=== PATIENT | female | born 1955 | race Caucasian/White ===

== ENCOUNTER 2022-11-06 15:25 | Outpatient (REF) | payer OTHER, MEDICAID, SELFPAY ==
--- OUTSIDE RECORDS SUMMARY | 2022-11-06 15:30 | XMS_ITS | CCD ---
Author Name Unknown Address [address] [place] [address] [phone] Organization Unknown Address [address] [place] [address] [phone] Care Team Providers Care Information Systems Security Manager Name Role Phone VIKKI PAULSON Attending Physician [phone] VIKKI PAULSONing (Secondary) Physician [phone] Vital Signs Unknown or Not Available. Allergies Allergy Code Allergy Type Reaction Status ASPIRIN 0 Drug allergy Active Procedures Unknown or Not Available. History of Immunizations Unknown or Not Available. Problems Unknown or Not Available. Results Unknown or Not Available. Active Medications Unknown or Not Available. Medications Administered During Visit Unknown or Not Available. Encounters Encounter Diagnosis Diagnosis Code Start Date Idiopathic osteoarthritis [id number] 2020 Social History Smoking Status Code Start Date End Date Never smoker [id number] Patient Decision Aids Unknown or Not Available. Discharge Instructions You were admitted to [facility] on 02/12/2021 14:29 with a principal diagnosis of Unilateral primary osteoarthritis, left knee You were discharged from [facility] on 02/12/2021 00:00 Should you have any questions prior to discharge, please contact a member of your healthcare team. If you have left the hospital and have any questions, please contact your primary care physician. Chief Complaint and Reason For Visit Unknown or Not Available. Function Status Unknown or Not Available. Plan of Care Unknown or Not Available. Referral/Transition of Care Unknown or Not Available.
--- OUTSIDE RECORDS SUMMARY | 2022-11-06 15:30 | XMS_ITS | CCD ---
Author Name Unknown Address [address] [place] [address] [phone] Organization Unknown Address [address] [place] [address] [phone] Care Team Providers Care Fish Cleaner Machine Tender Name Role Phone VIKKI PAULSON Attending Physician [phone] VIKKI PAULSONing (Secondary) Physician [phone] Vital Signs Unknown or Not Available. Allergies Allergy Code Allergy Type Reaction Status ASPIRIN 0 Drug allergy Active Procedures Unknown or Not Available. History of Immunizations Unknown or Not Available. Problems Unknown or Not Available. Results Unknown or Not Available. Active Medications Unknown or Not Available. Medications Administered During Visit Unknown or Not Available. Encounters Encounter Diagnosis Diagnosis Code Start Date Idiopathic osteoarthritis [id number] 2021 Social History Smoking Status Code Start Date End Date Never smoker [id number] Patient Decision Aids Unknown or Not Available. Discharge Instructions You were admitted to [facility] on 03/26/2021 15:04 with a principal diagnosis of Unilateral primary osteoarthritis, left knee You were discharged from [facility] on 03/26/2021 00:00 Should you have any questions prior [...]
--- OUTSIDE RECORDS SUMMARY | 2022-11-06 15:30 | XMS_ITS | CCD ---
Author Name Unknown Address [address] [place] [address] [phone] Organization Unknown Address [address] [place] [address] [phone] Care Team Providers Care Mender Hand Name Role Phone MADI HARP Attending Physician [phone] MADI HARP Rounding (Secondary) Physician [phone] Vital Signs Unknown or Not Available. Allergies Allergy Code Allergy Type Reaction Status ASPIRIN 0 Drug allergy Active Procedures Unknown or Not Available. History of Immunizations Unknown or Not Available. Problems Unknown or Not Available. Results Unknown or Not Available. Active Medications Unknown or Not Available. Medications Administered During Visit Unknown or Not Available. Encounters Encounter Diagnosis Diagnosis Code Start Date Idiopathic osteoarthritis [id number] 2022 Social History Smoking Status Code Start Date End Date Never smoker [id number] Patient Decision Aids Unknown or Not Available. Discharge Instructions You were admitted to [facility] on 09/08/2022 12:45 with a principal diagnosis of Unilateral primary osteoarthritis, left knee You were discharged from [facility] on 09/08/2022 00:00 Should you have any questions prior [...]
[2022-11-06 15:34] LABS: ESR 10 mm/hr (0-30)
[2022-11-06 15:59] LABS: C-Reactive Protein 0.08 mg/dL (0.0-0.3); Creatine Kinase 69 U/L (26-192); LDH 230 U/L (81-234)
[2022-11-06 22:12] LABS: Rheumatoid Factor <8.6 IU/mL (<12.0)
[2022-11-09 08:30] LABS: Cyclic Citrullinated Peptide <2.5 U/mL (<5.0)
[2022-11-09 10:57] LABS: Myeloperoxidase Ab IgG <0.2 U; Proteinase 3 Ab (PR3) <0.2 U
[2022-11-09 14:28] LABS: ANA Interpretation Positive (Negative); ANA Titer Pattern 1:320 Homogeneous
== END 2022-11-06 15:26 | disposition home or self-care (01) ==
LOC: LBN 15:25
PROVIDERS: Visit Provider Student in an Organized Health Care Education/Training Program
DX: R50.9 Fever, unspecified (principal)
CPT/HCPCS: 82550; 85652; 86200; 83516; 83615; 86038; 86140; 86431

== ENCOUNTER → 2023-05-13 12:59 | Outpatient (BNVA) | payer OTHER, MEDICAID, SELFPAY | PROVIDERS: Visit Provider Physician Assistant Surgical | DX: R05.3 Chronic cough (principal); J45.909 Unspecified asthma, uncomplicated; G47.33 Obstructive sleep apnea (adult) (pediatric); R50.9 Fever, unspecified | CPT/HCPCS: 99214 ==

== ENCOUNTER → 2023-12-08 13:00 | Outpatient (BNVA) | payer OTHER, MEDICAID, SELFPAY | PROVIDERS: PCP Family Medicine; Referring Provider Family Medicine; Visit Provider Physician Assistant Surgical | DX: J45.909 Unspecified asthma, uncomplicated (principal); R50.9 Fever, unspecified; R05.3 Chronic cough; K44.9 Diaphragmatic hernia without obstruction or gangrene; K21.9 Gastro-esophageal reflux disease without esophagitis; G47.33 Obstructive sleep apnea (adult) (pediatric) | CPT/HCPCS: 99214 ==

== ENCOUNTER 2023-12-08 20:41 | Outpatient (REF) | payer OTHER, MEDICAID, SELFPAY ==
[2023-12-08 20:36] LABS: COVID-19 PCR Negative (Negative); Influenza A PCR Negative (Negative); Influenza B PCR Negative (Negative); RSV PCR Negative (Negative)
--- OUTSIDE RECORDS SUMMARY | 2023-12-08 20:43 | XMS_ITS ---
Author Organization Unknown Address [address] [place] [address] [phone] Phone Care Team Providers Care Manufacturing Technology Professor Name Role Phone LORENE FLOREZ Attending Unavailable LONNIE Carlos Primary Unavailable Social History Type Status Start Date End Date Code Code Syst em Smoking History Never smoker (Never Smoked) 715530794 SNOMED CT Sex Female Hospital Discharge Instructions Should you have any questions prior to discharge, please contact a member of your healthcare team. If you have left the hospital and have any questions, please contact your primary care physician. Reason For Referral No Data Found Allergies and Adverse Reactions Allergy Substance Reaction Severity Start Date Concern Status Co de Code System ASPIRIN Moderate Active Plan of Treatment No Data Found Encounters Encounter Diagnosis Start Date Code Code Sys tem Idiopathic osteoarthritis 03/26/2021 505724231 SN OMED-CT Personal Care Team Section Performer Name Performer Role Active Date Inactive Da adriel
--- OUTSIDE RECORDS SUMMARY | 2023-12-08 20:43 | XMS_ITS ---
Author Organization Unknown Address [address] [place] [address] [phone] Phone Care Team Providers Care Track Grinder Operator Name Role Phone LORENE FLOREZ Attending Unavailable LONNIE Carlos Primary Unavailable Social History Type Status Start Date End Date Code Code Syst em Smoking History Never smoker (Never Smoked) 389224375 SNOMED CT Sex Female Hospital Discharge Instructions [...] Date Code Code Sys tem Idiopathic osteoarthritis 02/12/2021 484247274 SN OMED-CT Personal Care Team Section Performer Name Performer Role Active Date Inactive Da adriel
--- OUTSIDE RECORDS SUMMARY | 2023-12-08 20:43 | XMS_ITS ---
Author Organization Unknown Address [address] [place] [address] [phone] Phone Care Team Providers Care Manager People Name Role Phone LORENE FLOREZ Attending Unavailable LONNIE Carlos Primary Unavailable Results XR KNEE LT MIN 4V* - Complet ed: 03/20/2021 12:57 LOINC: LEFT KNEE: Comparison is made with August 02. There is moderate narrowing of the medial femoral tibial joint as well as lateral patellofemoral joint. There is mild periarticular spurring. No joint effusion is visible. IMPRESSION:Moderate degenerative changes. Dictated by: CEO SHARON LONG MD Transcribed by: SOL 03/21/2107:14 D , March 20, 2021 3:50:47 PM [id number] Electronically Reviewed and Signed By: SHARON LONG MD 03/21/21 08:38 Copy for: [facility] Social History Type Status Start Date End Date Code Code Syst em Smoking History Never smoker (Never Smoked) 213799496 SNOMED CT Sex Female Hospital Discharge Instructions [...] Date Code Code Sys tem Idiopathic osteoarthritis 03/20/2021 111627712 SN OMED-CT Personal Care Team Section Performer Name Performer Role Active Date Inactive Da te
--- OUTSIDE RECORDS SUMMARY | 2023-12-08 20:44 | XMS_ITS ---
Author Organization Unknown Address [address] [place] [address] [phone] Phone Care Team Providers Care Assisted Living Housekeeper Name Role Phone LORENE FLOREZ Attending Unavailable PCP NOT SELECTED Primary Unavailable Results XR KNEE 4V LT* - Completed: 03/25/2022 13:00 LOINC: RADIOLOGY [place], [place] [address] PACS TRUSS PULLER HELPER REPORT Patient Name: AASHISH PASTRANA I MRN: Sex: : Age: [id number] F 1955 66 Account: Accession: Admit: StayType: [id number] 03/25/2022 CLINIC Ordered: Order ID: Submitted: Ordering Provider: 03/25/2022 11:53 [id number] BM VIKKI PAULSON Completed: Technologist: Resulted: 03/25/2022 11:53 03/25/2022 12:54 Study Description: XR KNEE 4V LT* Study Reason: LT KNEE PAIN Technique: 2D digital imaging was performed. 4 images were obtained. COMPARISON: Comparison examination is 03/20/2021. FINDINGS: Bones: No acute fractures present. No bony destructive lesion is seen. Joints: No dislocation is present. There is mild narrowing and periarticular spurring in the medial femoral-tibial joint. The articular surfaces are otherwise well-maintained. No joint effusion is present. Soft tissues: Unremarkable. IMPRESSION: Stable degenerative changes of the left knee. Report Digitally Signed by Александр Easton on 03/25/2022 12:54 PM EST Social History Type Status Start Date End Date Code Code Syst em Smoking History Never smoker (Never Smoked) 394912028 SNOMED CT Sex Female Hospital Discharge Instructions [...] Date Code Code Sys tem Idiopathic osteoarthritis 03/25/2022 398975604 SN OMED-CT Personal Care Team Section Performer Name Performer Role Active Date Inactive Da te
--- OUTSIDE RECORDS SUMMARY | 2023-12-08 20:44 | XMS_ITS ---
Author Organization Unknown Address [address] [place] [address] [phone] Phone Care Team Providers Care Refrigerator Car Icer Name Role Phone KATIUSKA Davies Attending Unavailable PCP NOT SELECTED Primary Unavailable Social History Type Status Start Date End Date Code Code Syst em Smoking History Never smoker (Never Smoked) 220583908 SNOMED CT Sex Female Hospital Discharge Instructions [...] Date Code Code Sys tem Idiopathic osteoarthritis 10/01/2022 951492106 SN OMED-CT Personal Care Team Section Performer Name Performer Role Active Date Inactive Da te
--- OUTSIDE RECORDS SUMMARY | 2023-12-08 20:44 | XMS_ITS ---
Author Organization Unknown Address [address] [place] [address] [phone] Phone Care Team Providers Care Drawing Supervisor Name Role Phone KATIUSKA Davies Attending Unavailable PCP NOT SELECTED Primary Unavailable Social History Type Status Start Date End Date Code Code Syst em Smoking History Never smoker (Never Smoked) 508896915 SNOMED CT Sex Female Hospital Discharge Instructions [...] Date Code Code Sys tem Idiopathic osteoarthritis 09/08/2022 882889246 SN OMED-CT Personal Care Team Section Performer Name Performer Role Active Date Inactive Da te
--- OUTSIDE RECORDS SUMMARY | 2023-12-08 20:44 | XMS_ITS ---
Author Organization Unknown Address [address] [place] [address] [phone] Phone Care Team Providers Care Sheet Pile Driver Operator Name Role Phone HEATHER HUTCHINSON Attending Unavailable PCP NOT SELECTED Primary Unavailable Social History Type Status Start Date End Date Code Code Syst em Smoking History Never smoker (Never Smoked) 805944438 SNOMED CT Sex Female Hospital Discharge Instructions [...] Date Code Code Sys tem Idiopathic osteoarthritis 06/04/2022 341333902 SN OMED-CT Personal Care Team Section Performer Name Performer Role Active Date Inactive Da adriel
--- OUTSIDE RECORDS SUMMARY | 2023-12-08 20:45 | XMS_ITS ---
Author Organization Unknown Address [address] [place] [address] [phone] Phone Care Team Providers Care Aviation Tactical Readiness Officer Name Role Phone KATIUSKA Davies Attending Unavailable LARA HERNANDEZ Primary Unavailable Results XR KNEE 4V LT* - Completed: 06/23/2023 14:29 LOINC: [facility] [place], [place] [address] PACS CRUDE OIL TREATER REPORT Patient Name: AASHISH PASTRANA I MRN: Sex: : Age: [id number] F 1955 67 Account: Accession: Admit: StayType: [id number] 06/23/2023 CLINIC Ordered: Order ID: Submitted: Ordering Provider: 06/23/2023 11:03 [id number] [facility] MADI HARP Completed: Technologist: Resulted: 06/23/2023 14:29 MLL 06/23/2023 14:56 Study Description: XR KNEE 4V LT Study Reason: LEFT KNEE PAIN Technique: 2D digital imaging was performed. 4 images were obtained. COMPARISON: 25 March 2022 FINDINGS: Bones: No acute fractures present. No bony destructive lesion is seen. Joints: Stable mild narrowing and periarticular spurring at the medial femoral-tibial joint. Mild spurring at the articular aspect of the patella. Patellofemoral joint is suboptimally profiled. Nojoint effusion is seen. Soft tissues: Unremarkable. IMPRESSION: Stable degenerative changes. Report Digitally Signed by Negrita Nathan on 06/23/2023 02:56 PM EDT Social History Type Status Start Date End Date Code Code Syst em Smoking History Never smoker (Never Smoked) 271690240 SNOMED CT Sex Female Hospital Discharge Instructions [...] Date Code Code Sys tem Idiopathic osteoarthritis 06/23/2023 [id number] OMED-CT Personal Care Team Section Performer Name Performer Role Active Date Inactive Da te
--- OUTSIDE RECORDS SUMMARY | 2023-12-08 20:45 | XMS_ITS ---
Author Organization Unknown Address [address] [place] [address] [phone] Phone Care Team Providers Care Hand Braille Transcriber Name Role Phone DEV DENTON Attending Unavailable LARA HERNANDEZ Primary Unavailable Results XR SHOULDER 2V OR MORE RT* - Completed: 01/26/2023 09:45 LOINC: [facility] RAD[facility] [place], [place] [address] PACS TEST GRADER REPORT Patient Name: AASHISH PASTRANA I MRN: Sex: : Age: [id number] F 1955 67 Account: Accession: Admit: StayType: [id number] 01/26/2023 CLINIC Ordered: Order ID: Submitted: Ordering Provider: 01/26/2023 09:27 [id number] PW CORRIE MÉNDEZ Completed: Technologist: Resulted: 01/26/2023 09:45 PW 01/26/2023 17:30 Study Description: XR SHOULDER 2V OR MORE RT Study Reason: Pain TECHNIQUE: 2D digital imaging was performed. COMPARISON: No exams were available for comparison FINDINGS: NUMBER OF VIEWS: 4 No evidence of acute fracture or dislocation and there are no abnormal soft tissue calcifications in subacromial space nor significant diminution of the subacromial space. There are no obvious degenerative changes in the glenohumeral joint. Mild degenerative changes in the AC joint. Bone density normal. No osseous lesions. IMPRESSION: Minimal findings. Report Digitally Signed by Yuval Hartley on 01/26/2023 05:30 PM EST Social History Type Status Start Date End Date Code Code Syst em Smoking History Never smoker (Never Smoked) 797794200 SNOMED CT Sex Female Hospital Discharge Instructions [...] Diagnosis Start Date Code Code Sys tem 01/26/2023 [id number] SNOMED-CT Personal Care Team Section Performer Name Performer Role Active Date Inactive Da te
--- OUTSIDE RECORDS SUMMARY | 2023-12-08 20:45 | XMS_ITS | Encounter Summary ---
Author Organization [facility] Address [address] [place] [address] Care Team Providers Care Board Certified Behavioral Analyst Name Role Phone Nadine Sadler VANESA Primary Care Provider + Encounter Details Date Type Department Care Team (Late st Contact Info) Description 11/13/2022 Lab Requisition [facility] Pathology & Laboratory Medicine - [facility] [address] [place] [address] Outr Resulting Lab, Provider Social History Tobacco Use Types Packs/Day Years Used Date Smoking Tobacco: Never Interpersonal Safety Answer Date Record ed Physically Hurt Never 10/15/2019 Verbally Threaten Not on file 10/15/2019 Sex and Gender Information Value Date Recorded Sex Assigned at Not on file Gender Identity Not on file Sexual Orientation Not on file documented as of this encounter Functional Status Functional Status Response Date of Assess ment Are you deaf or do you have serious difficulty h earing? No 04/12/2014 Are you blind or do you have serious difficulty seeing, even when wearing glasses? No 04/12/2014 Do you have serious difficul ty walking or climbing stairs? (5 years old or older) No 04/12/2014 Do you have difficulty dress ing or bathing? (5 years old or older) No 04/12/2014 Because of a physical, menta l, or emotional condition, do you have difficulty doing errands alone such as visiting a doctor's office or shopping? (15 years old or older) No 04/12/2014 Cognitive Status Response Date of Assessm ent Because of a physical, menta l, or emotional condition, do you have serious difficulty concentrating, remembering, or making decisions? (5 years old or older) Yes 04/12/2014 documented as of this encounter Plan of Treatment Not on file documented as of this encounter Procedures Procedure Name Priority Date/Time Associated Diagnosis Comments DOUBLE STRANDED DNA ANTIBODY, IGG Routine 11/13/2022 18:05 EDT documented in this encounter Results * ANTI DNA (DOUBLE STRANDED) (11/13/2022 18:05 EDT) Anti-DNA (Double Stranded) <12.3 <30.0 IU/mL 11/17/2022 14:15 EDT [facility] Comment: ? Negative: ??<30.0 IU/mL ? Borderline Positive: ??30.0 - 75.0 IU/mL ? Positive: ??>75.0 IU/mL Results were obtained with the [employer] Lite dsDNA SC STUART assay on the [employer]. Blood VENOUS BLOOD / Unknown 11/13/2022 18:05 EDT 11/15/2022 16:37 EDT Provider Outr Resulting Lab IMMUNOLOGY A ND SEROLOGY ORDERABLES [facility] [address] [place] [address] documented in this encounter Visit Diagnoses Not on filedocumented in this encounter Care Teams Board Certified Behavioral Analyst Relationship Specialty Start Date End Date Nadine Sadler FNP PCP - General 01/04/14 documented as of this encounter
--- OUTSIDE RECORDS SUMMARY | 2023-12-08 20:45 | XMS_ITS | Referral Summary ---
Author Organization [facility] Address [address] [place] [address] Care Team Providers Care Senior Marketing Coordinator Name Role Phone Nadine Sadler VANESA Primary Care Provider + Allergies Active Allergy Reactions Criticality Noted Date Comments Aspirin Other (See Comments) 02/13/2014 Dizziness and elevated BP per pt Gabapentin Medium 02/13/2014 Burning in hands and feet Topiramate Medium 02/13/2014 Burning in hands and feet Medications Medication Sig Dispensed Refills Start Date End Date Status OXYCODONE HCL (OXYCODONE ORAL) Take 10 mg by mouth 4 times daily as needed . Active atenolol (TENORMIN) 50 mg tablet Take 50 mg by mouth daily. Active clonazePAM (KLONOPIN) 1 mg tablet Take 1 mg by mouth 3 times daily. Active lamoTRIgine (LAMICTAL) 25 mg tablet Take 50 mg by mouth 2 times daily. Active albuterol 90 mcg/actuation inhalerIndications:a cute asthma attack,chronic obstructive pulmonary disease Inhale 2 Puffs as directed every 4 hours Indications: ACUTE ASTHMA ATTACK, CHRONIC OBSTRUCTIVE PULMONARY DISEASE. Active fluticasone-salmeter ol (ADVAIR) 500-50 mcg/dose diskus inhalerIndications:b ronchospasm prevention with COPD Inhale 1 Puff as directed 2 times daily Indications: BRONCHOSPASM PREVENTION WITH COPD. Active ibuprofen (MOTRIN) 200 mg tabletIndications:os teoarthritis Take 600 mg by mouth every 6 hours as needed for Pain Indications: OSTEOARTHRITIS. Active zolpidem (AMBIEN) 10 mg tablet Take 10 mg by mouth daily. Active sumatriptan (IMITREX) 6 mg/0.5 mL injection Inject 6 mg into the skin. Active promethazine (PHENERGAN) 25 mg tablet Take 25 mg by mouth every 6 hours as needed for Nausea. Active oxyCODONE (ROXICODONE) 5 mg immediate release tablet Take 1-2 Tabs by mouth every 4 hours as needed for Pain. Earliest Fill Date: 04/14/14 80 Tab 0 04/14/2014 Active traMADol (ULTRAM) 50 mg tablet Take 1-2 Tabs by mouth every 6 hours as needed for Pain. 50 Tab 0 04/14/2014 Active amoxicillin (AMOXIL) 500 mg capsule Take 4 capsules by mouth,one hour prior to all dental procedures 4 Cap 5 07/12/2014 Active Active Problems Problem Noted Date Diagnosed Date S/P total knee arthroplasty 05/08/2014 Osteoarthritis, lower leg, localized 04/11/2014 Overview: ICD10 Update Auto Replacement Pain in joint, lower leg 04/11/2014 Osteoarthritis of right knee 02/13/2014 Asthma COPD (chronic obstructive pulmonary disease) ( C-CMS) Bipolar disorder ([facility]) CHF (congestive heart failure) ([facility]) HTN (hypertension) Obstructive sleep apnea Overview: unable to tolerate cpap mouth piece Fatty liver disease, nonalcoholic Edema of lower extremity Social History Tobacco Use Types Packs/Day Years Used Date Smoking Tobacco: Never Interpersonal Safety Answer Date Record ed Physically Hurt Never 10/15/2019 Verbally Threaten Not on file 10/15/2019 Sex and Gender Information Value Date Recorded Sex Assigned at Not on file Gender Identity Not on file Sexual Orientation Not on file Last Filed Vital Signs Vital Sign Reading Time Taken Comments Blood Pressure 123/65 04/14/2014 0925 EST Pulse 67 04/14/2014 0925 EST Temperature 36.5 ??C (97.7 ??F) 04/14/2014 0705 EST Respiratory Rate 16 04/14/2014 0705 EST Oxygen Saturation 98% 04/14/2014 0705 EST Inhaled Oxygen Concentration - - Weight 77.1 kg (170 lb) 04/12/2014 0300 EST Height 149.9 cm (4' 11.02) 04/12/2014 0300 EST Body Mass Index 34.32 04/12/2014 0300 EST Functional Status Functional Status Response Date of [...] (5 years old or older) Yes 04/12/2014 Plan of Treatment Not on file Advance Directives For more information, please contact: [phone] * Full Code (Latest Code Status on File) Date Activated Date Inactivated Comments 04/11/2014 21:54 04/14/2014 15:32 Question Answer Comments Reason for decision includes: Full code requested by fully informed patient Who participated in the discussion? Patient Care Teams Senior Marketing Coordinator Relationship Specialty Start Date End Date Nadine Sadler FNP PCP - General 01/04/14
--- OUTSIDE RECORDS SUMMARY | 2023-12-08 20:45 | XMS_ITS | Clinical Summary ---
Author Organization [facility] Address [address] [place] [address] Care Team Providers Care Split And Drum Room Supervisor Name Role Phone Nadine Sadler VANESA Primary [...] obstructive pulmonary disease) ( C-CMS) Bipolar disorder (HCC-CMS) CHF (congestive heart failure) ([facility]) HTN (hypertension) Obstructive sleep apnea Overview: unable to tolerate cpap mouth piece Fatty liver disease, nonalcoholic Edema of lower extremity Medical History Medical History Date Comments Asthma COPD (chronic obstructive pu lmonary disease) (HCC-CMS) Bipolar disorder ([facility]) HTN (hypertension) CHF (congestive heart failure) ([facility]) Obstructive sleep apnea unable t o tolerate cpap mouth piece Fatty liver disease, nonalcoholic Edema of lower extremity Social History Tobacco Use Types Packs/Day Years Used Date Smoking Tobacco: Never Interpersonal Safety Answer Date Record ed Physically Hurt Never 10/15/2019 Verbally Threaten Not on file 10/15/2019 Sex and Gender Information Value Date Recorded Sex Assigned at Not on file Gender Identity Not on file Sexual Orientation Not on file Obstetrics History Last Filed Vital Signs Vital Sign Reading [...] Body Mass Index 34.32 04/12/2014 0300 EST Plan of Treatment Health Maintenance Due Date Last Done Comments Asthma Action Plan 1955 Copd Action Plan 1955 Hepatitis C Screen 1955 Lung Function Test (Spirometry) 1955 RSV Immunization ( o r 60+ Years) (1 - 1-dose 60+ series) 2014 Fall Risk Screening 09/25/2019 COVID-19 Vaccine (2022-24 season) 2022 Advance Directives For more information, please contact: [phone] * Full Code (Latest Code Status on File) Date Activated Date Inactivated Comments 04/11/2014 21:54 04/14/2014 15:32 Question Answer Comments Reason for decision includes: Full code requested by fully informed patient Who participated in the discussion? Patient Care Teams Split And Drum Room Supervisor Relationship Specialty Start Date End Date Nadine Sadler FNP PCP - General 01/04/14
--- OUTSIDE RECORDS SUMMARY | 2023-12-08 20:45 | XMS_ITS ---
Author Organization Unknown Address [address] [place] [address] [phone] Phone Care Team Providers Care Public Health Technologist Name Role Phone DEV CORRIE Attending Unavailable LARA HERNANDEZ Primary Unavailable Social History Type Status Start Date End Date Code Code Syst em Smoking History Never smoker (Never Smoked) 383459119 SNOMED CT Sex Female Hospital Discharge Instructions [...] Diagnosis Start Date Code Code Sys tem 05/11/2023 [id number] SNOMED-CT Personal Care Team Section Performer Name Performer Role Active Date Inactive Da adriel
--- OUTSIDE RECORDS SUMMARY | 2023-12-08 20:45 | XMS_ITS ---
Author Organization Unknown Address [address] [place] [phone] Phone Care Team Providers Care Home Care Provider Name Role Phone JOSE Porter Attending Unavailable LARA HERNANDEZ Primary Unavailable Social History Type Status Start Date End Date Code Code Syst em Smoking History Never smoker (Never Smoked) [id number] SNOMED CT Sex Female Hospital Discharge Instructions [...] Date Code Code Sys tem Idiopathic osteoarthritis 09/23/2023 [id number] SN OMED-CT Personal Care Team Section Performer Name Performer Role Active Date Inactive Da te
--- OUTSIDE RECORDS SUMMARY | 2023-12-08 20:46 | XMS_ITS | Encounter Summary ---
Author Organization [facility] Address [address] [place] [address] Care Team Providers Care Roll Contour Grinder Name Role Phone Nadine Sadler VANESA Primary Care Provider + Encounter Details Date Type Department Care Team (Late st Contact Info) Description 04/04/2014 Phlebotomy Only [facility], [place] [address] [place] [address] Optometrist Owner, Outpatient Localized osteoarthrosis not specified whether primary or secondary, lower leg; Pain in joint, lower leg Social History Tobacco Use Types Packs/Day Years Used Date Smoking Tobacco: Never Assessed Sex and Gender Information Value Date Recorded Sex Assigned at Not on file Gender Identity Not on file Sexual Orientation Not on file documented as of this encounter Plan of Treatment Not on file documented as of this encounter Procedures Procedure Name Priority Date/Time Associated Diagnosis Comments PRE-OP TYPE AND SCREEN Routine 04/04/2014 13:45 EST Localized osteoarthrosis not specified whether primary or secondary, lower leg Pain in joint, lower leg URINALYSIS WITH MICROSCOPIC IF POSITIVE Routine 04/04/2014 13:45 EST Pain in joint, lower leg URINE CULTURE IF POSITIVE Routine 04/04/2014 13:45 EST Localized osteoarthrosis not specified whether primary or secondary, lower leg Pain in joint, lower leg COMPLETE BLOOD COUNT AND DIFFERENTIAL Routine 04/04/2014 13:45 EST Localized osteoarthrosis not specified whether primary or secondary, lower leg Pain in joint, lower leg BASIC METABOLIC PANEL (BMP) Routine 04/04/2014 13:45 EST Localized osteoarthrosis not specified whether primary or secondary, lower leg documented in this encounter Results * URINE CULTURE IF UA POSITIVE - NON POCT URINALYSIS ONLY (04/04/2014 13:45 EST) Culture if Indicated Culture not indicated by urinalysis results. 04/04/2014 16:22 [facility] Urine specimen (specimen) TOPOGRAPHY UNKNOWN / Unknown 04/04/2014 13:45 EST 04/04/2014 15:19 EST Tio Keating MD MSc [facility] MICROBIO LOGY - GENERAL ORDERABLES [facility] [address] [place] [address] * (ABNORMAL) URINALYSIS (04/04/2014 13:45 EST) Color, UA Yellow 04/04/2014 16:11 [facility] Clarity, UA Clear 04/04/2014 16:11 [facility] Glucose, UA Neg Neg 04/04/2014 16:11 [facility] Bilirubin, UA Neg Neg 04/04/2014 16:11 [facility] Ketones, UA Neg Neg 04/04/2014 16:11 [facility] Specific [place], Urine 1.015 1.001 - 1.035 04/04/2014 16:11 [facility] Blood, UA Trace(A) Neg 04/04/2014 16:11 [facility] pH, UA 6.0 4.6 - 8.0 04/04/2014 16:11 [facility] Protein, UA Neg Neg 04/04/2014 16:11 [facility] Urobilinogen, UA 0.2 0.2 - 1.0 E.U./dl 04/04/2014 16:11 [facility] Nitrite, UA Neg Neg 04/04/2014 16:11 [facility] Leuk Esterase Neg Neg 04/04/2014 16:11 [facility] Urine specimen (specimen) URINE / Unknown 04/04/2014 13:45 EST 04/04/2014 15:19 EST Tio Keating MD MSc [facility] URINALYS IS ORDERABLES [facility] [address] [place] [address] * HEMAGRAM AND DIFFERENTIAL (04/04/2014 13:45 EST) WBC 9.43 4.0 - 12.4 K/cmm 04/04/2014 14:32 [facility] RBC 4.19 3.86 - 5.04 M/cmm 04/04/2014 14:32 [facility] Hemoglobin 13.1 11.6 - 15.2 gm/dl 04/04/2014 14:32 [facility] HCT 37.9 34.9 - 44.4 % 04/04/2014 14:32 [facility] MCV 90 81 - 98 fl 04/04/2014 14:32 [facility] MCH 31.2 26.7 - 33.3 pg 04/04/2014 14:32 [facility] MCHC 34.5 32.1 - 35.9 gm/dl 04/04/2014 14:32 [facility] RDW-CV 12.5 11.7 - 14.6 % 04/04/2014 14:32 [facility] RDW-SD 39.4 37.6 - 50.3 fl 04/04/2014 14:32 [facility] PLT 170 141 - 320 K/cmm 04/04/2014 14:32 [facility] MPV 8.0 7.5 - 11.2 fl 04/04/2014 14:32 [facility] % Neutrophils 56.0 45.5 - 79.7 % 04/04/2014 14:32 [facility] % Lymphocytes 34.4 15.0 - 46.8 % 04/04/2014 14:32 [facility] % Monocytes 4.6 1.8 - 12.0 % 04/04/2014 14:32 [facility] % Eosinophils 4.3 0.6 - 6.9 % 04/04/2014 14:32 [facility] % Basophils 0.7 0.2 - 1.4 % 04/04/2014 14:32 [facility] ABS Neutrophils 5.29 2.20 - 8.85 K/cmm 04/04/2014 14:32 [facility] ABS Lymphs 3.24 1.09 - 3.30 K/cmm 04/04/2014 14:32 [facility] ABS Monocytes 0.43 0.1 - 0.8 K/cmm 04/04/2014 14:32 [facility] ABS Eosinophils 0.40 0.03 - 0.61 K/cmm 04/04/2014 14:32 [facility] ABS Basophils 0.07 0.01 - 0.11 K/cmm 04/04/2014 14:32 [facility] Type of Diff: Automated 04/04/2014 14:32 [facility] Blood specimen (specimen) BLOOD SPECIMEN / Unknown 04/04/2014 13:45 EST 04/04/2014 14:14 EST Tio Keating MD MSc [facility] PACKAGES & DNA PROBE ORDERABLES Performing Organization Address City/State/[facility] Co de Phone Number [facility] [address] [place] [address] * (ABNORMAL) BASIC METABOLIC PANEL (04/04/2014 13:45 EST) Sodium 143 136 - 145 mEq/L 04/04/2014 14:56 [facility] Potassium 3.9 3.5 - 5.0 mEq/L 04/04/2014 14:56 [facility] Chloride 104 96 - 110 mEq/L 04/04/2014 14:56 [facility] CO2 27 24 - 32 mEq/L 04/04/2014 14:56 [facility] BUN 9(L) 10 - 26 mg/dl 04/04/2014 14:56 [facility] Creatinine 0.84 0.52 - 1.04 mg/dl 04/04/2014 14:56 [facility] GFR, Calculated >60 >60 ml/min/1.7 3m2 04/04/2014 14:56 [facility] Calcium 9.0 8.5 - 10.5 mg/dl 04/04/2014 14:56 [facility] Calculated Calcium 9.6 8.5 - 10.5 mg/dl 04/04/2014 14:56 [facility] Glucose, Serum 102(H) 70 - 100 mg/dl 04/04/2014 14:56 [facility] Fasting? Unknown 04/04/2014 13:45 [facility] Blood specimen (specimen) BLOOD SPECIMEN / Unknown 04/04/2014 13:45 EST 04/04/2014 14:14 EST Tio Keating MD MSc [facility] CHEMISTR Y & BLOOD GAS ORDERABLES Performing Organization Address City/[facility] Co de Phone Number [facility] [address] [place] [address] * PRE-OP BLOOD BANK DRAW (04/04/2014 13:45 EST) Pre-Op Blood Bank Lab Draw SPECIMEN RECEIVED ACCEPTABLE 04/04/2014 15:22 EST [facility] BLOOD SPECIMEN / Unknown 04/04/2014 13:45 EST 04/04/2014 14:14 EST Tio Keating MD, MSc [facility] BLOOD BA NK TESTS Performing Organization Address City/[facility] Co de Phone Number [facility] [address] [place] [address] documented in this encounter Visit Diagnoses Diagnosis Localized osteoarthrosis not specified whether primary or secondary, lower leg Pain in joint, lower leg documented in this encounter Care Teams Roll Contour Grinder Relationship Specialty Start Date End Date Nadine Sadler FNP PCP - General 01/04/14 documented as of this encounter
--- OUTSIDE RECORDS SUMMARY | 2023-12-08 20:46 | XMS_ITS | Encounter Summary ---
Author Organization [facility] Address [facility] [place] [address] Care Team Providers Care Customer Service Voice Name Role Phone Rhonda Brady Primary Care Provider [phone] Encounter Details Date Type Department Care Team (Late st Contact Info) Description 01/11/2023 Ancillary Procedure Radiology Library at [facility] [place] [phone] Rhonda Brady PA [address] [place], [place] [id number] Social History Tobacco Use Types Packs/Day Years Used Date Smoking Tobacco: Never Smokeless Tobacco: Never Sex and Gender Information Value Date Recorded Sex Assigned at Not on file Gender Identity Not on file Sexual Orientation Not on file documented as of this encounter Plan of Treatment Not on file documented as of this encounter Procedures Procedure Name Priority Date/Time Associated Diagnosis Comments FILM LIBRARY STORAGE ONLY MR SPINE Routine 01/11/2023 12:00 AM EDT documented in this encounter Results * Film Library- Storage Only MR Spine (01/11/2023 12:00 AM EDT) Narrative [facility] - 01/26/2023 8:46 AM EST This exam is auto-finalizing. It's purpose is for storage only. Rhonda LANDRY IMG FILM [facility] ORD [facility] [place] documented in this encounter Visit Diagnoses Not on filedocumented in this encounter Care Teams Customer Service Voice Relationship Specialty Start Date End Date Rhonda Brady PA [address] [place] [address] PCP - General Family Medicine 10/26/22 documented as of this encounter
--- OUTSIDE RECORDS SUMMARY | 2023-12-08 20:46 | XMS_ITS | Encounter Summary ---
Author Organization [facility] Address [address] [place] [address] Care Team Providers Care Pie Bakery Laborer Name Role Phone Nadine Sadler VANESA Primary Care Provider + Encounter Details Date Type Department Care Team (Late st Contact Info) Description 03/31/2021 Lab Requisition [facility] Pathology & Laboratory Medicine - [facility] [address] [place] [address] Outr Resulting Lab, Provider Social History Tobacco [...] Procedure Name Priority Date/Time Associated Diagnosis Comments ZZCOVID-19 TEST [facility] PCR Today 03/31/2021 12:25 EST COVID-19 TESTING Routine 03/31/2021 12:2 5 EST documented in this encounter Results * COVID-19 TEST [facility] PCR (03/31/2021 12:25 EST) Swab 03/31/2021 12:2 5 EST 03/31/2021 20:25 EST Provider Outr Resulting Lab MICROBIOLOGY - GENERAL ORDERABLES [facility] [address] [place] [id number] * COVID-19 TESTING (03/31/2021 12:25 EST) COVID-19 rt-PCR Result Negative Negative 04/01/2021 11:24 EST [facility] Comment: This test has not been FDA cleared or approved. This test has been authorized by FDA under an EUA for use by authorized laboratories. This test has been authorized only for detection of nucleic acid from 2019-nCoV, not for any other viruses or pathogens. This test is only authorized for the duration of the declaration that circumstances exist justifying the authorization of emergency use of in vitro diagnostic tests for detection and/or diagnosis of 2019-nCoV under section 564(b)(1) of Act, 21 U.S.C ?? 360bbb-3(b) (1), unless the authorization is terminated or revoked sooner. Negative results do not preclude 2019-nCoV infection and should not be used as the sole basis for treatment or other patient management decisions. Negative results must be combined with clinical observations, patient history, and epidemiological information. Testing was performed using the yue SARS-CoV-2 assay ([employer] on the Yue 6800 System Performing Lab Yue 6800 [facility] 04/01/2021 11:24 EST [facility] Swab 03/31/2021 12:2 5 EST 03/31/2021 20:25 EST Provider Outr Resulting Lab MICROBIOLOGY - GENERAL ORDERABLES [facility] [address] [place] [address] documented in this encounter Visit Diagnoses Not on filedocumented in this encounter Care Teams Pie Bakery Laborer Relationship Specialty Start Date End Date Nadine Sadler FNP PCP - General 01/04/14 documented as of this encounter
--- OUTSIDE RECORDS SUMMARY | 2023-12-08 20:46 | XMS_ITS | Encounter Summary ---
Author Organization [facility] Address [address] [place] [address] Care Team Providers Care Au Pair Name Role Phone Nadine Sadler VANESA Primary Care Provider + Reason for Visit * Reason Onset Date Comments Leg Pain 05/16/2014 Encounter Details Date Type Department Care Team (Late st Contact Info) Description 05/16/2014 Telephone [facility] Total Joint Program - [address] [place], [place] [phone] Leticia Gandhi RN Leg Pain Social History Tobacco Use Types Packs/Day Years Used Date Smoking Tobacco: Never Sex and Gender Information Value [...] Yes 04/12/2014 documented as of this encounter Miscellaneous Notes * Telephone Encounter - Leticia Gandhi RN - 05/16/2014 1229 EST DOS- 04/11/14 for a Right total knee arthroplasty. called to state that pts right leg is very swollen from knee to foot with increased pain for several days. She woke him up last night due to pain in her calf. Instructed to take pt to ER for evaluation to r/o a DVT in her leg. They will go to [facility] near then and then he will call me and update after visit. Leticia Gandhi RN documented in this encounter Plan of Treatment Not on file documented as of this encounter Visit Diagnoses Not on filedocumented in this encounter Care Teams Au Pair Relationship Specialty Start Date End Date Nadine Sadler FNP PCP - General 01/04/14 documented as of this encounter
--- OUTSIDE RECORDS SUMMARY | 2023-12-08 20:46 | XMS_ITS | Encounter Summary ---
Author Organization [facility] Address [facility] [place] [address] Care Team Providers Care Basic Acoustic Analyst Name Role Phone Rhonda Brady Primary Care Provider [phone] Reason for Referral * Physical Therapy (Routine) - Closed Specialty Diagnoses / Procedures Referred By Contac t Referred To Contact Physical Therapy Diagnoses Lumbar spondylosis Myofascial pain Chronic pain syndrome Sacroiliitis Miguelangel Tinajero MD [facility] [place] [address] Unknown None Referral ID Status Reason Start Date Expiration Date V isits Requested Visits Authorized [id number] Closed Evaluate and Treat Non PCP 03/02/2023 08/29/2023 12 12 Reason for Visit * Reason Comments Back Pain Lower back pain * Consultation (Routine) - Closed Specialty Diagnoses / Procedures Referred By Contac t Referred To Contact [facility] Sp[facility] Center Diagnoses Other intervertebral disc displacement, lumbar region low back pain/ MRI 2019 in eDH/MRI @[facility] (faxed x1)/? pain mgmt options *advise we do not precribe or take over Sahara Kowalski MD [address] [place] [address] [place] [address] [facility] [place] [address] Referral ID Status Reason Start Date Expiration Date V isits Requested Visits Authorized [id number] Closed Consult, Test & Treat PCP Updated and/or Approved 10/26/2022 10/26/2023 1 1 Encounter Details Date Type Department Care Team (Late st Contact Info) Description 03/02/2023 3:45 PM EST Office Visit [facility] [place] [address] Miguelangel Tinajero MD [facility] [place] [address] Myofascial pain (Primary Dx); Lumbar spondylosis; Chronic pain syndrome; Sacroiliitis Social History Tobacco Use Types Packs/Day Years Used Date Smoking Tobacco: Never Smokeless Tobacco: Never Sex and Gender Information Value Date Recorded Sex Assigned at Not on file Gender Identity Not on file Sexual Orientation Not on file documented as of this encounter Last Filed Vital Signs Vital Sign Reading Time Taken Comments Blood Pressure 179/104 03/02/2023 3:12 PM EST Pulse 74 03/02/2023 3:12 PM EST Temperature - - Respiratory Rate - - Oxygen Saturation 99% 03/02/2023 3:12 PM EST Inhaled Oxygen Concentration - - Weight 59 kg (130 lb) 03/02/2023 3:12 PM EST Height 144.8 cm (4' 9) 03/02/2023 3:12 PM EST Body Mass Index 28.13 03/02/2023 3:12 PM EST documented in this encounter Progress Notes * Edgar Medrano, DO - 03/02/2023 3:45 PM EST Images from the original note were not included. [facility] Initial Consultation Note Name: Dominique Gates : 1955 Consulting Physician: Seeing at the request of Sahara Kowalski MD [address] [place] [address] [place] [address] Chief Complaint: low back pain History of Present Illness: Dominique Gates is a 67 y.o. female with a history of Hypertension, COPD,KENA, Bipolar Disorder, AKASH, FOWLER, Chronic Opioid Use who presents with low back pain. Functional Goals of Treatment: decrease pain and increase function Patient endorses chronic low back pain. Onset was about 18-20 years ago without trauma. It is localized to the midline low back. It is always present and described as achy and rated 7/10. It is aggravated by walking (3 city blocks), standing, bending forward. She denies leg weakness or cramps when ambulating. Pain is relieved by sitting. She associates intermittent radiating pain down the posterior thigh and calf. Axial is more bothersome than radicular. Pain has progressively worsened over theyears. Red flag symptoms: Bowel and bladder: No loss of control Saddle anesthesia: Denies Weakness: Denies Pertinent History: h/o Thrombocytopenia/bleeding tendency/platelet dysfunction: No h/o Liver disease/abnormal liver function: Yes, fatty liver h/o Chronic kidney disease (CKD)/abnormal kidney function: No Patient on dialysis: no h/o Diabetes: No Anticoagulation/Aspirin: No Current pain treatments include: Acetaminophen 1500 TID - mild relief Lamictal 25mg TID - for mood stabilizing Methocarbamol 500mg TID - stopped, did not work Oxycodone 10mg QID PRN - stopped due to colitis Conservative Treatment: Topicals: Icy Hot Helpful? No NSAIDS: Ibuprofen Helpful? No Acetaminophen: Yes Helpful? Mild relief Antidepressants: Amitriptyline, Duloxetine Helpful? No Antiepileptics: Gabapentin Helpful? Allergic Muscle Relaxants: Methocarbamol Helpful? Mild relief Opioids: Oxycodone, Tramadol Helpful? Oxycodone worked well but stopped due to colitis Other Medications: NONE Helpful? N/A The patient has not been actively engaged in Physical therapy or a provider directed home exercise program. A home exercise program is not being performed Other Treatment: NONE Helpful? N/A History of Interventional Procedures/Surgery: Prior Surgery: No Injection History (date, procedure, %improvement): No Chart review: Today I have reviewed available medical information in the patient's medical record at [facility] including relevant provider notes, laboratory work, and imaging. Historical Review: I have reviewed the patient's past medical, surgical, social, and family history available in the EMR at this time along with supplemented information provided by the patient during the interview process today. Pertinent findings: Tobacco: Social History Tobacco Use Smoking Status Never Smokeless Tobacco Never Alcohol: Social History Substance and Sexual Activity Alcohol Use None Recreational drug use: No Work: retired Legal issues (WC/MVA, etc): No Housing: Lives with Family Medications and list of allergies: Medications and allergies were reviewed, reconciled and updated in the electronic medical record. ROS: Positive for above mentioned musculoskeletal and neurological findings on 14 point system review. Areas of disrupted skin integrity/wounds/lesions: No Denies any other constitutional symptoms or weight changes. Chronic fever for last 9 months. Physical Exam: Blood pressure (!) 179/104, pulse 74, height 144.8 cm (4' 9), weight 59 kg (130 lb), SpO2 99%. Pain: 7 General: Well-nourished, well-developed, female in no distress Respiratory: Non-labored breathing pattern on RA. No respiratory distress Cardiovascular: No edema or cyanosis. 2+ peripheral pulses Skin: No appreciable rashes or skin breakdown Psych: Appropriate affect, answers questions appropriately Musculoskeletal: Inspection - No gross spinal deformity noted. Palpation - Tender with palpation of the bilateral lumbar paraspinals and right PSIS ROM - Lumbar Flexion , Extension, Lateral rotation is WNL Special tests: - SI Joint provocative testing is Negative bilaterally via Pelvic Distraction, Lateral iliac Compression, and NIKITA - Facet loading in the Lumbar spine is Positive bilaterally - Straight Leg Raise Negative bilaterally - FAIR Negative bilaterally Neurologic: Motor: 5/5 throughout all muscle groups of the lower extremities Reflexes: Segment Reflex Right Left L3-4 Patella 2+ 2+ S1-2 Achilles 2+ 2+ Upper Motor Neuron Signs: Clonus is not present bilaterally (0=absent, 1=slight response, 2=brisk/normal, 3=very brisk, 4=clonus) Sensory - Intact to light touch and pinprick at bilateral lower extremities. Allodynia is not present. Hyperalgesia is not present. Gait/Station - Normal Gait and Is able to heel and toe walk without difficulty Diagnostic Tests: Most recent Lumbar Spine MRI was completed on 01/11/23 at Outside Facility In addition to the formal radiology read, I independently reviewed the imaging and shared my interpretation with the patient. The impression is: Assessment: Dominique Gates is a 67 y.o. female with a PMH including Hypertension, COPD, KENA, Bipolar Disorder, AKASH, FOWLER, Previous Chronic Opioid Use [facility] predominantly chronic axial low back pain. After today's evaluation, presentation is multifactorial including lumbar myofascial and facetogenic. There is an additional contribution from herright SIJ. Patient is amendable to trial of Physical Therapy prior to possible lumbar MBB vs. SIJ injection. 1. Myofascial pain 2. Lumbar spondylosis Plan/Recommendations: We reviewed etiology, predisposing factor(s), natural course, imaging results as well as treatment options including medications, physical therapy/exercise, therapeutic injections, and surgery. The risks, consequences, alternatives, and benefits of various treatment options were discussed with the patient in great detail. We have discussed and recommended the following: - Medications: No new prescription at this time. Patient will continue current medications. - Imaging: No new imaging is indicated at this time. - Physical Therapy/Modalities/DME: Patient would benefit from Physical Therapy and an external referral was provided for the patient. - Interventional/Surgical Procedures: consider lumbar MBB vs SIJ pending response to Physical Therapy - Activity: as tolerated - Education: Cauda equina and associated symptoms, including motor weakness, bowel/bladder dysfunction, and perineal numbness were discussed. The patient was instructed to report to the Emergency department, if these symptoms occur. - Follow-up: as needed, after completion of physical therapy Thank you for allowing us the opportunity to participate in Dominique Gates's care. Edgar Medrano DO Assessment and plan discussed with the attending physician Dr. Tinajero. I have seen and examined the patient and reviewed the fellow's above history and agree with the details as written. The assessment and plan were formulated in discussion with me, and I agree with them as documented. Miguelangel Tinajero MD [facility] Manager Property of Anesthesiology [facility] [employer] [address] [address] / [email or web address] CC: Sahara Kowalski MD [address] [place] [phone] documented in this encounter Plan of Treatment Scheduled Referrals Name Type Priority Associated Diagnoses Orde r Schedule Referral to Physical Therapy Outpatient Referral Routine Lumbar spondylosis Myofascial pain Chronic pain syndrome Sacroiliitis Ordered: 03/02/2023 documented as of this encounter Visit Diagnoses Diagnosis Myofascial pain- Primary Mylagia and myositis, unspecified Lumbar spondylosis Lumbosacral spondylosis without myelopathy Chronic pain syndrome Sacroiliitis Sacroiliitis, not elsewhere classified documented in this encounter Care Teams Basic Acoustic Analyst Relationship Specialty Start Date End Date Rhonda Brady PA [address] [place] [address] PCP - General Family Medicine 10/26/22 documented as of this encounter
--- OUTSIDE RECORDS SUMMARY | 2023-12-08 20:46 | XMS_ITS | Encounter Summary ---
Author [facility] [place] [address] Care Team Providers Care Prosthetic Assistant Name Role Phone Rhonda Brady Primary Care Provider [phone] Encounter Details Date Type Department Care Team (Latest Contact Info) Description 03/02/2023 Travel Social History Tobacco Use Types Packs/Day Years [...] on filedocumented in this encounter Care Teams Prosthetic Assistant Relationship Specialty Start Date End Date Rhonda Brady PA [address] [place] [address] PCP - General Family Medicine 10/26/22 documented as of this encounter
--- OUTSIDE RECORDS SUMMARY | 2023-12-08 20:46 | XMS_ITS | Encounter Summary ---
Author Organization [facility] Address [address] [place] [address] Care Team Providers Care Catia Designer Name Role Phone Nadine Sadler Primary Care Provider + Encounter Details Date Type Department Care Team (Late st Contact Info) Description 01/04/2014 Results Only Imaging [facility] [phone] Unknown, Provider, Social History Tobacco Use Types Packs/Day Years Used Date Smoking Tobacco: Never Assessed Sex and Gender Information Value Date Recorded Sex Assigned at Not on file Gender Identity Not on file Sexual Orientation Not on file documented as of this encounter Plan of Treatment Pending Results Name Type Priority Associated Diagnoses Date /Time OUTSIDE IMAGES - MR MSK Imaging 1 15:11 EDT OUTSIDE IMAGES - PLAIN FILM MSK Imaging 01/04/2014 16:52 EDT documented as of this encounter Visit Diagnoses Not on filedocumented in this encounter Care Teams Catia Designer Relationship Specialty Start Date End Date Nadine Sadler FNP PCP - General 01/04/14 documented as of this encounter
--- OUTSIDE RECORDS SUMMARY | 2023-12-08 20:46 | XMS_ITS | Encounter Summary ---
Author Organization [facility] [place] [address] Care Team Providers Care Dark Room Attendant Name Role Phone Summer Tamez MD Primary Care Provider [phone] Encounter Details Date Type Department Care Team (Late st Contact Info) Description 12/27/2006 [place] [id number] Summer Tamez MD EMERGENCY DEPT [address] [place], [place] [address] [address] Social History Tobacco Use Types Packs/Day Years [...] FILM LIBRARY STORAGE ONLY MR SPINE Routine 12/27/2006 2:49 PM EDT documented in this encounter Results * Film Library- Storage only MR Spine (12/27/2006 2:49 PM EDT) Anatomical Region Laterality Modality Other 12/27/2006 2:49 PM EDT Narrative 09/27/2014 2:55 PM EDT This is a Non-reportable exam Procedure Note GRICELDA, UNSIGNED REPORT - 09/27/2014 This is a Non-reportable exam Summer Tamez MD IMG FILM LIBRARY O RDERABLES documented in this encounter Visit Diagnoses Not on filedocumented in this encounter Care Teams Dark Room Attendant Relationship Specialty Start Date End Date Summer Tamez MD EMERGENCY DEPT [address] [place] [address] PCP - General 02/04/10 01/17/20 documented as of this encounter
--- OUTSIDE RECORDS SUMMARY | 2023-12-08 20:46 | XMS_ITS | Encounter Summary ---
Author Organization [facility] Address [address] [place] [address] Care Team Providers Care Hair Spring Winder Name Role Phone Nadine Sadler VANESA Primary Care Provider + Reason for Visit * Reason Onset Date Comments Procedure 04/17/2014 Encounter Details Date Type Department Care Team (Late st Contact Info) Description 04/17/2014 Orders Only [facility] Total Joint Program - [address] [place], [place] [id number] Leticia Gandhi RN Localized osteoarthrosis not specified whether primary or secondary, lower leg (Primary Dx); Difficulty in walking(719.7); Pain in joint, lower leg; S/P total knee arthroplasty Social History Tobacco Use Types Packs/Day Years [...] Yes 04/12/2014 documented as of this encounter Progress Notes * Leticia Gandhi, RN - 04/17/2014 1140 EST Pt calling. States PT feels pt unsteady and needs a transfer shower chair. Pt would like this script sent to [facility] the [place] [facility]. Same done. Leticia Gandhi RN documented in this encounter Plan of Treatment Not on file documented as of this encounter Visit Diagnoses Diagnosis Localized osteoarthrosis not specified whether primary or secondary, lower leg- Primary Difficulty in walking(719.7) Difficulty in walking Pain in joint, lower leg S/P total knee arthroplasty Knee joint replacement by other means documented in this encounter Orders Equipment Count Last Ordered Date First Orde red Date GENERIC DME ORDER 1 04/17/2014 documented in this encounter Care Teams Hair Spring Winder Relationship Specialty Start Date End Date Nadine Sadler FNP PCP - General 01/04/14 documented as of this encounter
--- OUTSIDE RECORDS SUMMARY | 2023-12-08 20:46 | XMS_ITS | Encounter Summary ---
Author Organization [facility] Address [address] [place] [address] Care Team Providers Care Photoengraving Proofer Apprentice Name Role Phone Nadine Sadler VANESA Primary Care Provider + Encounter Details Date Type Department Care Team (Late st Contact Info) Description 08/03/2014 Orders Only [facility] Total Joint Program - [address] [place] [address] Tio Keating MD MSc [facility] [address] [place] [address] Knee pain (Primary Dx) Social History Tobacco Use Types Packs/Day Years [...] as of this encounter Visit Diagnoses Diagnosis Knee pain- Primary Pain in joint, lower leg documented in this encounter Care Teams Photoengraving Proofer Apprentice Relationship Specialty Start Date End Date Nadine Sadler FNP PCP - General 01/04/14 documented as of this encounter
--- OUTSIDE RECORDS SUMMARY | 2023-12-08 20:46 | XMS_ITS | Encounter Summary ---
Author Organization [facility] Address [address] [place] [address] Care Team Providers Care Vulcanizing Press Operator Name Role Phone Nadine Sadler Primary Care Provider + Reason for Visit * Reason Onset Date Comments Procedure 04/04/2014 Encounter Details Date Type Department Care Team (Latest Contact Info) Description 04/04/2014 Pre-Procedure Orders Encounter [facility] Total Joint Program - [facility] [address] [place], [place] [id number] Leticia Gandhi RN Localized osteoarthrosis not specified whether primary or secondary, lower leg (Primary Dx); Pain in joint, lower leg Social History [...] whether primary or secondary, lower leg- Primary Pain in joint, lower leg documented in this encounter Care Teams Vulcanizing Press Operator Relationship Specialty Start Date End Date Nadine Sadler FNP PCP - General 01/04/14 documented as of this encounter
--- OUTSIDE RECORDS SUMMARY | 2023-12-08 20:46 | XMS_ITS | Encounter Summary ---
Author Organization [facility] Address [address] [place] [address] Care Team Providers Care Typewriters Functional Tester Name Role Phone Nadine Sadler VANESA Primary Care Provider + Reason for Referral * Radiology Services (Routine) - Closed Specialty Diagnoses / Procedures Referred By Vidal t Referred To Contact Diagnoses Pain in joint, lower leg Localized osteoarthrosis not specified whether primary or secondary, lower leg Asthma COPD (chronic obstructive pulmonary disease) ([facility]) Procedures CHEST PA AND LATERAL Tio Keating MD MSc [address] [id number] Referral ID Status Reason Start Date Expiration Date Visits Re quested Visits Authorized [id number] Closed 02/13/2014 1 1 Reason for Visit * Reason Comments Knee Pain Right knee Encounter Details Date Type Department Care Team (Latest Contact Info) Description 02/13/2014 13:15 EST Office Visit [facility] Total Joint Program - [address] [address] Tio Keating MD MSc [facility] [address] [place] [phone] Localized osteoarthrosis not specified whether primary or secondary, lower leg (Primary Dx); Pain in joint, lower leg; Asthma; COPD (chronic obstructive pulmonary disease) ([facility]) ([facility]); Osteoarthritis of right knee Discharge Disposition: Auto Discharge Social History Tobacco Use Types Packs/Day Years Used Date Smoking Tobacco: Never Assessed Sex and Gender Information Value Date Recorded Sex Assigned at Not on file Gender Identity Not on file Sexual Orientation Not on file documented as of this encounter Last Filed Vital Signs Vital Sign Reading Time Taken Comments Blood Pressure - - Pulse - - Temperature - - Respiratory Rate - - Oxygen Saturation - - Inhaled Oxygen Concentration - - Weight 77.1 kg (170 lb) 02/13/2014 1331 EST Height 149.9 cm (4' 11) 02/13/2014 1331 EST Body Mass Index 34.34 02/13/2014 1331 EST documented in this encounter Discharge Diagnoses Diagnosis 493.90 ASTHMA, UNSPECIFIED[ICD-9-CM] 496. CHRONIC AIRWAY OBSTRUCTION NEC[ICD-9-CM] 719.46 JOINT PAIN-L/LEG[ICD-9-CM] V71.89 OBSERVATION FOR OTHER SPECIFIED SUSPECTED CONDITIONS[ICD-9-CM] 715.36 LOC OSTEOARTH NOS-L/LEG[ICD-9-CM] 715.96 OSTEOARTHROS NOS-L/LEG[ICD-9-CM] documented in this encounter Discharge Disposition Disposition Code Departure Means Destination Auto Discharge documented in this encounter Progress Notes * REMOTE CODERS, SCAN 2 - 02/20/2014 0329 EST * Tio Keating MD - 02/13/2014 1506 EST Nadine Sadler Dear Ms Sadler: I was a pleasure to assess Dominique in our orthopedic clinic today in the presence of her . 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 She comes in complaining of a 1-year history of generalized right knee pain with the medial side being worse. Shewas previously assessed in [facility] by Dr Kitchen and was booked for a partial versus a total knee replacement. Dominique was quite upset that she had to wait very long for surgery and was surprisedto find out that another surgeon was going to perform the surgery. She therefore decided to come for an assessment here. Dominique continues to complain of medial-sided pain, which interferes with her odessa lity of daily living. She struggles with walking for more than 30 minutes. The knee locks and givesat times. She gained 20 pounds as a result of her inability to exercise. The knee also swells. She has not had any physiotherapy recently. She has had multiple injections, which provided short-term relief. Her past medical history includes hypertension, hysterectomy, asthma, COPD, CHF, bipolar disorder with anxiety and depression, herniated lumbar disk disease, migraines, and obstructive sleep apnea. The remainder of the review of systems is noncontributory. Family history is noncontributory. Her medications were listed in the chart and were reviewed. She does not take any blood thinners. She says that she is allergic to ASPIRIN, which causes dizziness and increases her blood pressure. She does not smoke or drink. On exam, Dominique is in no apparent distress and her affect is normal. She was quite emotional during the interview. She demonstrates nonlabored breathing. She is alert and oriented x3 and appears her stated age. She walks with a mild limp. She is overweight with a BMI of 34. Her right knee is in slight varus. The hip exam is grossly normal. Her knee range of motion is 5 to 120. The skin appears healthy. She has some moderate swelling, but no warmth or redness. She is tender both medially and laterally. She has a negative patellar grind test. The knee is stable and extensor mechanism is intact. Her tib pulse and dorsalis pedis are 2+. She has a negative straight leg raise sign and her neurologic exam demonstrates normal sensation and motor function distally. Her x-rays from today demonstrate severe osteoarthritic changes of the right knee involving predominantly the medial compartment. Today, I had a long discussion with Dominique with respect to her knee. She feels that she has exhausted all nonop measures and is ready to proceed with surgery. She feels that she should have had the surgery months ago and was upset that it was delayed. I explained that in my hands, I recommend a total knee replacement and not a partial given her generalized knee pain. She was pleased with my recommendation and was eager to proceed with a total knee replacement. The risks and benefits of surgery were described, which include, but not limited to infection, DVT, PE, neurovascular injury, bleeding,stiffness, instability, a periprosthetic fracture, component loosening, residual pain and cardioresp iratory complications. Consent was signed and we will plan to do it in the new year. Sincerely, CC: Nadine Sadler * Leticia Gandhi, RN - 02/13/2014 1413 EST Patient Education Topic: Pre op for a right total knee arthroplasty 28.15 Method: Handout and Verbal Taught to: Patient Barriers: None Outcomes: verbalized understanding Patient Education items provided at today's visit: - Joint replacement education binder for pre/post op information - Dynahex antiseptic wash MRSA swab was done today. Signature: Leticia Gandhi RN documented in this encounter Plan of Treatment Not on file documented as of this encounter Procedures Procedure Name Priority Date/Time Associated Diagnosis Comments CHEST PA AND LATERAL Routine 02/13/2014 15:01 EST Pain in joint, lower leg Localized osteoarthrosis not specified whether primary or secondary, lower leg Asthma COPD (chronic obstructive pulmonary disease) ([facility] ([facility]) SURGICAL MRSA/MSSA Routine 02/13/2014 14 :46 EST Localized osteoarthrosis not specified whether primary or secondary, lower leg Pain in joint, lower leg documented in this encounter Results * URINE CULTURE IF UA POSITIVE - NON POCT URINALYSIS ONLY (04/04/2014 13:45 EST) Culture if Indicated Culture not indicated by urinalysis results. 04/04/2014 16:22 EST [facility] Urine specimen (specimen) TOPOGRAPHY UNKNOWN / Unknown 04/04/2014 13:45 EST 04/04/2014 15:19 EST Tio Keating MD MSc [facility] MICROBIO LOGY - GENERAL ORDERABLES [facility] [address] [place] [address] * (ABNORMAL) URINALYSIS (04/04/2014 13:45 EST) Color, UA Yellow 04/04/2014 16:11 EST [facility] Clarity, UA Clear 04/04/2014 16:11 [facility] Glucose, UA Neg Neg 04/04/2014 16:11 [facility] Bilirubin, UA Neg Neg 04/04/2014 16:11 [facility] Ketones, UA Neg Neg 04/04/2014 16:11 [facility] Specific [place], Urine 1.015 1.001 - 1.035 04/04/2014 16:11 [facility] Blood, UA Trace(A) Neg 04/04/2014 16:11 [facility] pH, UA 6.0 4.6 - 8.0 04/04/2014 16:11 [facility] Protein, UA Neg Neg 04/04/2014 16:11 [facility] Urobilinogen, UA 0.2 0.2 - 1.0 E.U./dl 04/04/2014 16:11 [facility] Nitrite, UA Neg Neg 04/04/2014 16:11 [facility] Leuk Esterase Neg Neg 04/04/2014 16:11 [facility] Urine specimen (specimen) URINE / Unknown 04/04/2014 13:45 EST 04/04/2014 15:19 EST Tio Keating MD MSc [facility] URINALYS IS ORDERABLES [facility] [address] [place] [address] * HEMAGRAM AND DIFFERENTIAL (04/04/2014 13:45 EST) WBC 9.43 4.0 - 12.4 K/cmm 04/04/2014 14:32 [facility] RBC 4.19 3.86 - 5.04 M/cmm 04/04/2014 14:32 [facility] Hemoglobin 13.1 11.6 - 15.2 gm/dl 04/04/2014 14:32 [facility] HCT 37.9 34.9 - 44.4 % 04/04/2014 14:32 [facility] MCV 90 81 - 98 fl 04/04/2014 14:32 [facility] MCH 31.2 26.7 - 33.3 pg 04/04/2014 14:32 [facility] MCHC 34.5 32.1 - 35.9 gm/dl 04/04/2014 14:32 [facility] RDW-CV 12.5 11.7 - 14.6 % 04/04/2014 14:32 [facility] RDW-SD 39.4 37.6 - 50.3 fl 04/04/2014 14:32 [facility] PLT 170 141 - 320 K/cmm 04/04/2014 14:32 [facility] MPV 8.0 7.5 - 11.2 fl 04/04/2014 14:32 [facility] % Neutrophils 56.0 45.5 - 79.7 % 04/04/2014 14:32 [facility] % Lymphocytes 34.4 15.0 - 46.8 % 04/04/2014 14:32 [facility] % Monocytes 4.6 1.8 - 12.0 % 04/04/2014 14:32 [facility] % Eosinophils 4.3 0.6 - 6.9 % 04/04/2014 14:32 [facility] % Basophils 0.7 0.2 - 1.4 % 04/04/2014 14:32 [facility] ABS Neutrophils 5.29 2.20 - 8.85 K/cmm 04/04/2014 14:32 [facility] ABS Lymphs 3.24 1.09 - 3.30 K/cmm 04/04/2014 14:32 [facility] ABS Monocytes 0.43 0.1 - 0.8 K/cmm 04/04/2014 14:32 [facility] ABS Eosinophils 0.40 0.03 - 0.61 K/cmm 04/04/2014 14:32 [facility] ABS Basophils 0.07 0.01 - 0.11 K/cmm 04/04/2014 14:32 [facility] Type of Diff: Automated 04/04/2014 14:32 [facility] Blood specimen (specimen) BLOOD SPECIMEN / Unknown 04/04/2014 13:45 EST 04/04/2014 14:14 EST Tio Keating MD, MSc [facility] PACKAGES & DNA PROBE ORDERABLES Performing Organization Address City/[facility]/ZIP Co de Phone Number [facility] [address] [place] [address] * (ABNORMAL) BASIC METABOLIC PANEL (04/04/2014 13:45 EST) Sodium 143 136 - 145 mEq/L 04/04/2014 14:56 [facility] Potassium 3.9 3.5 - 5.0 mEq/L 04/04/2014 14:56 [facility] Chloride 104 96 - 110 mEq/L 04/04/2014 14:56 [facility] CO2 27 24 - 32 mEq/L 04/04/2014 14:56 [facility] BUN 9(L) 10 - 26 mg/dl 04/04/2014 14:56 [facility] Creatinine 0.84 0.52 - 1.04 mg/dl 04/04/2014 14:56 [facility] GFR, Calculated >60 >60 ml/min/1.7 3m2 04/04/2014 14:56 [facility] Calcium 9.0 8.5 - 10.5 mg/dl 04/04/2014 14:56 [facility] Calculated Calcium 9.6 8.5 - 10.5 mg/dl 04/04/2014 14:56 [facility] Glucose, Serum 102(H) 70 - 100 mg/dl 04/04/2014 14:56 [facility] Fasting? Unknown 04/04/2014 13:45 [facility] Blood specimen (specimen) BLOOD SPECIMEN / Unknown 04/04/2014 13:45 EST 04/04/2014 14:14 EST [facility]ating [facility] & BLOOD GAS ORDERABLES Performing Organization Address City/[facility]/ZIP Co de Phone Number [facility] [address] [place] [address] * PRE-OP BLOOD BANK DRAW (04/04/2014 13:45 EST) Pre-Op Blood Bank Lab Draw SPECIMEN RECEIVED ACCEPTABLE 04/04/2014 15:22 EST [facility] BLOOD SPECIMEN / Unknown 04/04/2014 13:45 EST 04/04/2014 14:14 EST Tio Keating MD, MSc [facility] BLOOD BA NK TESTS [facility] [address] [place] [address] * CHEST PA AND LATERAL (02/13/2014 15:01 EST) Anatomical Region Laterality Modality Other 02/13/2014 15:0 1 EST 02/13/2014 15:17 EST Narrative 02/13/2014 15:17 EST CHEST PA AND LATERAL ??02/13/2014 3:01 PM Signs and Symptoms/Comments: ?? 715.36-Localized osteoarthrosis not specified whether primary or secondary, lower gpa-MVL-9-CM 719.46-Pain in joint, lower jed-HME-0-CM; asthma, copd Comparisons: None. Findings: The lungs are clear and there is no evidence of pleural disease or pneumothorax. The cardiac silhouette and pulmonary vascularity are normal. The skeleton is unremarkable for age. Impression: No significant abnormality. Procedure Note 02/13/2014 CHEST PA AND LATERAL 02/13/2014 3:01 PM Signs and Symptoms/Comments: 715.36-Localized osteoarthrosis not specified whether primary or secondary, lower lvx-SAW-6-CM 719.46-Pain in joint, lower zxd-ZHL-9-CM; asthma, copd Comparisons: None. Findings: The lungs are clear and there is no evidence of pleural disease or pneumothorax. The cardiac silhouette and pulmonary vascularity are normal. The skeleton is unremarkable for age. Impression: No significant abnormality. Tio Keating MD, MSc [facility] IMG DIAG NOSTIC IMAGING ORDERABLES * (ABNORMAL) SURGICAL MRSA/MSSA (02/13/2014 14:46 EST) Specimen Description Nasal 02/13/2014 14:46 EST [facility] Result Methicillin susceptible Staphylococcus aureus (MSSA) DNA detected by PCR.(AA) 02/13/2014 22:57 EST [facility] BLOOD SPECIMEN / Unknown 02/13/2014 14:46 EST 02/13/2014 21:06 EST Tio Keating MD, MSc [facility] MICROBIO LOGY - GENERAL ORDERABLES [facility] [address] [place] [address] documented in this encounter Visit Diagnoses Diagnosis Localized osteoarthrosis not specified whether primary or secondary, lower leg- Primary Pain in joint, lower leg Asthma Unspecified asthma COPD (chronic obstructive pulmonary disease) ([facility]) Chronic airway obstruction, not elsewhere classified Osteoarthritis of right knee Osteoarthrosis, unspecified whether generalized or localized, lower leg documented in this encounter Historical Medications * This list may reflect changes made after this encounter. Medication Sig Dispensed Refills Start Date End Date ibuprofen (MOTRIN) 200 mg tabletIndications:oste oarthritis Take 600 mg by mouth every 6 hours as needed for Pain Indications: OSTEOARTHRITIS. fluticasone-salmeterol (ADVAIR) 500-50 mcg/dose diskus inhalerIndications:bro nchospasm prevention with COPD Inhale 1 Puff as directed 2 times daily Indications: BRONCHOSPASM PREVENTION WITH COPD. albuterol 90 mcg/actuation inhalerIndications:acu te asthma attack,chronic obstructive pulmonary disease Inhale 2 Puffs as directed every 4 hours Indications: ACUTE ASTHMA ATTACK, CHRONIC OBSTRUCTIVE PULMONARY DISEASE. lamoTRIgine (LAMICTAL) 25 mg tablet Take 50 mg by mouth 2 times daily. clonazePAM (KLONOPIN) 1 mg tablet Take 1 mg by mouth 3 times daily. atenolol (TENORMIN) 50 mg tablet Take 50 mg by mouth daily. OXYCODONE HCL (OXYCODONE ORAL) Take 10 mg by mouth 4 times daily as needed . furosemide (LASIX) 20 mg tablet Take 20 mg by mouth daily. 04/04/2014 added in this encounter Orders Equipment Count Last Ordered Date First Orde red Date GENERIC DME ORDER 1 02/13/2014 documented in this encounter Care Teams Typewriters Functional Tester Relationship Specialty Start Date End Date Nadine Sadler FNP PCP - General 01/04/14 documented as of this encounter
--- OUTSIDE RECORDS SUMMARY | 2023-12-08 20:46 | XMS_ITS | Encounter Summary ---
Author Organization [facility] Address [address] [place] [address] Care Team Providers Care Betting Clerk Name Role Phone Nadine Sadler VANESA Primary Care Provider + Encounter Details Date Type Department Care Team (Late st Contact Info) Description 07/13/2022 Lab Requisition [facility] Pathology & Laboratory Medicine - [facility] [address] [place] [address] Pierre Hernandez MD [address] [place] [phone] Encounter for other general examination Social History Tobacco Use Types Packs/Day Years [...] Procedure Name Priority Date/Time Associated Diagnosis Comments SURGICAL PATHOLOGY Today 07/13/2022 10 :58 EDT documented in this encounter Results * SURGICAL PATHOLOGY (07/13/2022 10:58 EDT) Note to Patient The following pathology results have been interpreted by your pathologist and may be available to you before your health provider has had the opportunity to review them. Please allow time for your provider to receive these results and explore management options, if applicable. 07/16/2022 12:57 [facility] Final Diagnosis A. DUODENUM, BIOPSIES: - Duodenal mucosa with no specific pathologic features. B. ESOPHAGUS, LOWER, BIOPSIES: - Squamous mucosa with features of reflux esophagitis. C. COLON, RANDOM BIOPSIES: - Colonic mucosa with no specific pathologic features. 07/16/2022 12:57 [facility] Attestation By the signature below, the attending physician certifies that they have 1) personally conducted a gross and/or microscopic examination of the described specimen(s), and/or personally interpreted the results of laboratory testing of the described specimen(s), and 2) personally rendered or confirmed the above diagnosis. 07/16/2022 12:57 [facility] at 1257 Clinical History Gastritis, colitis, diarrhea, diverticulosis 07/16/2022 12:57 [facility] Gross Description A. Received in formalin labelled with proper patient identification (initials O, N) and duodenal biopsy for celiac are 5 alanis tissues (0.1 x 0.1 x 0.1 cm to 0.3 x 0.2 x 0.1 cm). Submitted entirely in A1. B. Received in formalin labelled with proper patient identification (initials O, N) and lower esophageal biopsies are 4 white tissues (0.1 x 0.1 x 0.1 cm to 0.3 x 0.2 x 0.1 cm). Submitted entirely in B1. C. Received in formalin labelled with proper patient identification (initials O, N) and random biopsies for microscopic colitis are 8 alanis-brown tissues (0.2 x 0.1 x 0.1 cm to 0.7 x 0.1 x 0.1 cm). Submitted entirely in C1 and C2. FRANTZ KRUSE([facility]) 07/14/2022 9:17 07/16/2022 12:57 EDT [facility] Performing Lab [facility] 07/16/2022 12:57 EDT [facility] Scanned Images 07/16/2022 12:57 EDT [facility] Tissue ENTIRE COLON / Unknown 07/13/2022 10:58 EDT 07/14/2022 8:23 EDT Tissue specimen (specimen) ESOPHAGEAL STRUCTURE / Unknown 07/13/2022 10:58 EDT 07/14/2022 8:26 EDT Tissue specimen (specimen) COLON STRUCTURE / Unknown 07/13/2022 10:58 EDT 07/14/2022 8:26 EDT Pierre Hernandez MD PATHOLOGY ORDERABLES [facility] [address] [place] [address] documented in this encounter Visit Diagnoses Diagnosis Encounter for other general examination documented in this encounter Care Teams Betting Clerk Relationship Specialty Start Date End Date Nadine Sadler FNP PCP - General 01/04/14 documented as of this encounter
--- OUTSIDE RECORDS SUMMARY | 2023-12-08 20:46 | XMS_ITS | Encounter Summary ---
Author Organization [facility] Address [address] [place] [address] Care Team Providers Care Harness Cutter Name Role Phone Nadine Sadler PUBLICITY DIRECTOR Primary Care Provider + Reason for Referral * (Routine) - Closed Specialty Diagnoses / Procedures Referred By Contac t Referred To Contact Fred Silvestre MD [address] [place] [phone] Referral ID Status Reason Start Date Expiration Date V isits Requested Visits Authorized [id number] Closed Specialty Services Required 04/14/2014 1 1 Comments See Tio Keating MD. [facility] is located at [address] [place] [address]. * (Routine) - Closed Specialty Diagnoses / Procedures Referred By Contac t Referred To Contact Fred Silvestre MD [address] [place] [phone] Referral ID Status Reason Start Date Expiration Date V isits Requested Visits Authorized [id number] Closed Specialty Services Required 04/14/2014 1 1 Comments - Odor from incision - Redness, swelling or drainage from the wound - Temperature greater than 101 degrees Fahrenheit - Numbness in your extremity - Poor circulation (skin is cool to the touch or blue) - Shortness of breath - Pain unrelieved by medication - No bowel movement within 3 days of discharge - A skin rash Encounter Details Date Type Department Care Team (Latest Contact Info) Description 04/11/2014 11:06 EST - 04/14/2014 13:30 EST Hospital Encounter [facility] General Surgery Unit [address], [place] [id number] Tio Keating MD MSc [facility] [address] [place] [phone] Pain in joint, lower leg (Primary Dx); Localized osteoarthrosis not specified whether primary or secondary, lower leg; Osteoarthritis of right knee Discharge Disposition: Home or Self Care Social History Tobacco Use Types Packs/Day Years [...] Body Mass Index 34.32 04/12/2014 0300 EST documented in this encounter Functional Status Functional Status Response [...] Yes 04/12/2014 documented as of this encounter Discharge Summaries * Fred Silvestre MD - 04/11/2014 1116 EST DISCHARGE SUMMARY Chief Complaint/Reason for Admission: Right knee pain Admitted Via: DOSA Principal/Final Diagnosis: Right knee osteoarthritis Principal Procedure: Right total knee arthroplasty Date: 04/11/2014 Secondary Procedures: None Condition at Discharge: Stable Assessment at Discharge: Vital signs: Patient Vitals for the past 12 hrs: BP Heart Rate Resp Temp SpO2 O2 Device 04/14/14 0705 145/65 mmHg 70 BPM 16 36.5 ??C (97.7 ??F) 98 % Room air 04/13/14 2147 125/58 mmHg 70 BPM 16 36.7 ??C (98.1 ??F) 98 % Room air Hospital Course: Patient is a 58 y.o. female admitted DOS after undergoing uncomplicated right TKA.Postop, patient was started on the pain protocol and aspirin for DVT prophylaxis. She worked with PT, had good pain management with PO meds and voided independently after Andujar was removed. Patient was discharged home in stable condition. Risk Stratification for DVT Prophylaxis Patient is low risk for DVT/PE and standard or high risk for significant bleeding; therefore, --Fragmin 8d to Xeralto 20d Activity/Weight Bearing Activity as tolerated Weight bearing as tolerated Relevant Studies at Discharge: none Last Lab Results at Discharge: BUN: Lab Results Component Value Date BUN 16 04/13/2014 Creatinine: Lab Results Component Value Date CREATININE 0.82 04/13/2014 CBC: Lab Results Component Value Date WBC 8.26 04/14/2014 RBC 3.26* 04/14/2014 HGB 10.3* 04/14/2014 HCT 30.1* 04/14/2014 MCV 92 04/14/2014 MCH 31.5 04/14/2014 MCHC 34.1 04/14/2014 PLT 153 04/14/2014 DIFFTYPE Automated 04/04/2014 Electrolytes: Lab Results Component Value Date NA 140 04/13/2014 K 4.9 04/13/2014 CL 106 04/13/2014 CO2 28 04/13/2014 Discharge Medications: ASK your doctor about these medications Sig albuterol 90 mcg/actuation inhaler 2 Puffs, inhalation, EVERY 4 HOURS AMBIEN 10 mg tablet Generic drug: zolpidem 10 mg, oral, DAILY atenolol 50 mg tablet Commonly known as: TENORMIN 50 mg, oral, DAILY clonazePAM 1 mg tablet Commonly known as: KLONOPIN 1 mg, oral, 3 TIMES DAILY fluticasone-salmeterol 500-50 mcg/dose diskus inhaler Commonly known as: ADVAIR 1 Puff, inhalation, 2 TIMES DAILY ibuprofen 200 mg tablet Commonly known as: MOTRIN 600 mg, oral, EVERY 6 HOURS PRN IMITREX 6 mg/0.5 mL injection Generic drug: sumatriptan 6 mg, subcutaneous lamoTRIgine 25 mg tablet Commonly known as: LAMICTAL 50 mg, oral, 2 TIMES DAILY OXYCODONE ORAL 10 mg, oral, 4 TIMES DAILY PRN promethazine 25 mg tablet Commonly known as: PHENERGAN 25 mg, oral, EVERY 6 HOURS PRN cc: Nadine Sadler MD Discharge Summary Completed: Fred Silvestre MD documented in this encounter Medications at Time of Discharge Medication Sig Dispensed Refills Start Date End Date albuterol 90 mcg/actuation inhalerIndications:ac kay asthma attack,chronic obstructive pulmonary disease Inhale 2 Puffs as directed every 4 hours Indications: ACUTE ASTHMA ATTACK, CHRONIC OBSTRUCTIVE PULMONARY DISEASE. atenolol (TENORMIN) 50 mg tablet Take 50 mg by mouth daily. clonazePAM (KLONOPIN) 1 mg tablet Take 1 mg by mouth 3 times daily. fluticasone-salmetero l (ADVAIR) 500-50 mcg/dose diskus inhalerIndications:br onchospasm prevention with COPD Inhale 1 Puff as directed 2 times daily Indications: BRONCHOSPASM PREVENTION WITH COPD. ibuprofen (MOTRIN) 200 mg tabletIndications:ost eoarthritis Take 600 mg by mouth every 6 hours as needed for Pain Indications: OSTEOARTHRITIS. lamoTRIgine (LAMICTAL) 25 mg tablet Take 50 mg by mouth 2 times daily. oxyCODONE (ROXICODONE) 5 mg immediate release tablet Take 1-2 Tabs by mouth every 4 hours as needed for Pain. Earliest Fill Date: 04/14/14 80 Tab 0 04/14/2014 OXYCODONE HCL (OXYCODONE ORAL) Take 10 mg by mouth 4 times daily as needed . promethazine (PHENERGAN) 25 mg tablet Take 25 mg by mouth every 6 hours as needed for Nausea. sumatriptan (IMITREX) 6 mg/0.5 mL injection Inject 6 mg into the skin. traMADol (ULTRAM) 50 mg tablet Take 1-2 Tabs by mouth every 6 hours as needed for Pain. 50 Tab 0 04/14/2014 zolpidem (AMBIEN) 10 mg tablet Take 10 mg by mouth daily. dalteparin (FRAGMIN) 5,000 anti-Xa unit/0.2 mL injection Inject 0.2 mL into the skin daily for 8 days Please take Fragmin for 8 days , Then after Fragmin Rx is complete transition to Xeralto for 20 days. 8 Syringe 0 04/14/2014 04/22/2014 rivaroxaban (XARELTO) 10 mg tablet tablet Take 1 Tab by mouth daily with dinner for 20 days. 20 Tab 0 04/22/2014 05/12/2014 documented as of this encounter Ordered Prescriptions Prescription Sig Dispensed Refills Start Date End Da te traMADol (ULTRAM) 50 mg tablet Take 1-2 Tabs by mouth every 6 hours as needed for Pain. 50 Tab 0 04/14/2014 oxyCODONE (ROXICODONE) 5 mg immediate release tablet Take 1-2 Tabs by mouth every 4 hours as needed for Pain. Earliest Fill Date: 04/14/14 80 Tab 0 04/14/2014 rivaroxaban (XARELTO) 10 mg tablet tablet Take 1 Tab by mouth daily with dinner for 20 days. 20 Tab 0 04/22/2014 05/12/2014 dalteparin (FRAGMIN) 5,000 anti-Xa unit/0.2 mL injection Inject 0.2 mL into the skin daily for 8 days Please take Fragmin for 8 days , Then after Fragmin Rx is complete transition to Xeralto for 20 days. 8 Syringe 0 04/14/2014 04/22/2014 documented in this encounter Discharge Disposition Disposition Code Departure Means Destination Home or Self Care documented in this encounter Progress Notes * Watson Khan - 04/14/2014 1414 EST Patient discharged home. AVS reviewed with patient and signed. IV d/c'd before discharge. [facility] contacted, awaiting call back for report. Patient handed extra dressings, TEDS, and extra Tubi audio recording engineer for supplies to take home. * Candy Hodge, PT - 04/14/2014 1029 EST Rehabilitation Therapies [facility] Physical Therapy Discontinue/Discharge Note Date of Service: 04/14/2014 Precautions: Total knee precautions, WBTT, activity as tolerated, ambulate with assistive device SUBJECTIVE: Im doing ok, it hurts more than i thought it would OBJECTIVE: Intervention Completed Today: Physical therapist special event assistant provided treatment today and Time (treatment time and duration): Time: 08 Total treatment time: 25 minutes. Timed code treatment minutes: 25 Vital signs have been stable with interventions and were not monitored. Therapeutic Activity: Bed Mobility: pt performed supine -> sit with supervision assist and verbal cues for LE management techniques, L side of bed without bed features. Verbal instruction provided on how to use step stool with walker to get up high enough to reach bedat home, demonstration provided using bottom step while at stairs. Transfers: pt performed Sit <> stand from recliner with supervision assist for safety. Verbal education regarding car transfer safety and techniques, cryo cuff use/care/filling, [facility] set up and Home PT plan as well as home exercise plan and daily walking expectations. Gait Training: Amb: with RW and supervision assist ~100 feet with verbal cues to promote heel toe progression, step thru gait, increased weight bearing through surgical LE as able, as well as RW management and equal stance time on BLE. Stairs: Patient ascended/descended 3 steps with cane and single rail, patient required supervision assist with verbal cues for sequencing. Therapeutic exercise:Reinforced therapeutic exercise and provided pt with cueing to facilitate improved technique/proper performance in order to optimize outcome. Active: X 10 reps Supine Ankle pumps Quad sets Gluteal Sets Active Assisted: x10 reps Supine Hip abd/add Heel slides ROM: Flexion: 90 degrees sitting Extension: 5 degrees from neutral Patient/Family Education: Topic: Activity pacing/Energy conservation Assistive device/technique Bed mobility Car transfers Discharge planning Exercise Gait Home program Precautions/protocol Safety Stairs Transfers Learner: patient Method: verbal Barriers to Learning: none noted Outcome: verbalized understanding Team Communication: The patient's status was discussed with the patient's nurse before and after the physical therapy session. Patient has been seen in physical therapy since 04/12/14 for Therapeutic exercises, Therapeutic activities and Gait training. In this reporting period 04/12/14 to 04/14/14 the patient has been seen by a physical therapist and physical therapist special event assistant. Frequency: daily for 1 time per week and twice a day for 2 times per week. Intensity: 15-30 minutes per session. Duration: During this hospitalization. Please refer to the physical therapy notes for specifics on the patient's functional status and treatment sessions. Relevant objective findings: AROUSAL, ATTENTION, AND COGNITION: Pt alert and oriented throughout interventions CARDIOPULMONARY:Vitals have been stable throughout PT interventions INTEGUMENTARY/ANTHROPOMETRIC CHARACTERISTICS:dressing CDI with interventions RANGE OF MOTION AND JOINT INTEGRITY: 5-90 degrees in sitting MUSCLE PERFORMANCE: Please refer above to Interventions Completed Today in therapeutic exercise section BALANCE, LOCOMOTION, AND GAIT: Please refer above to Interventions Completed Today in Gait Trainingsection SELF-CARE, HOME MANAGEMENT, WORK, AND LEISURE: Please refer above to Interventions Completed Today in Therapeutic activity section ASSESSMENT: Physical therapy services in this setting have been discontinued secondary to: Patient has been or will be discharged from the hospital Physical Therapy Diagnosis: This patient status post TKR presented with a PT diagnosis of decreasedROM, decreased strength, and decreased functional balance impacting functional mobility with post operative pain. Physical Therapy Prognosis: This pt demonstrated adequate mobility on levels and stairs which pt reports is close or at baseline. Anticipate pt will continue to improve with regard to mobility in home setting. See below for status on goals. Pt progressing towards goals of which some are met, othersdiscontinued in light of d/c. Recommend home health PT Short-Term Goals: ?? N/a Long-Term Goals: 3-7 days The patient will be able to perform bed mobility independently demonstrating appropriate sequencing/motor planning. DISCONTINUE The patient will be able to perform transfers with modified independence while demonstrating appropriate hand placement with assistive device use. DISCONTINUE The patient will be able to ambulate with modified independence 100-250 feet with the least restrictive assistive device with step through gait and heel contact, with most upright posture. DISCONTINUE The patient and/or caregiver will be able to recall and demonstrate precautions. MET The patient will be able to perform stairs with supervision assist with appropriate home set up andproper sequencing. MET The patient/caregiver will be aware of the recommendations provided and demonstrate an appropriate technique/understanding of the recommendations.MET The patient will be able to perform therapeutic exercises 10 times active with good technique with written copy of exercises. MET The patient will demonstrate knee flexion ROM 5-90 A/AA. MET PLAN: D/C Physical Therapy Recommended Discharge Destination: Home with family Recommended Discharge Services: Home health physical therapy Recommended Equipment Needs: Patient has all necessary equipment Other recommendations: No other consults recommended at this time Pager: [phone] Charlotte Hannahford, AMAURY 04/14/2014 10:32 PRIMARY THERAPIST: Candy Hodge PT Pager [phone] * Carlo Lopez MD - 04/14/2014926 EST Orthopaedics Recon Progress Note Admit Date: 04/11/2014 Hospital LOS: 3 days Postoperative Day 3 Procedure: Right Total Knee Replacement [Tio Keating MD] Subjective: Ready for home. No Acute Events. Denies nausea, vomiting, chest pain, SOB. Tolerating PO intake. Voiding independently. Objective: Patient Vitals for the past 8 hrs: BP Temp Temp src Resp SpO2 04/14/14 0705 145/65 mmHg 36.5 ??C (97.7 ??F) Tympanic 16 98 % Intake/Output Summary (Last 24 hours) at 04/14/14926 Last data filed at 04/13/14 1934 Gross per 24 hour Intake 480 ml Output 0 ml Net 480 ml Patient is alert and oriented times three. RLE Dressing Clean/Dry/Intact Femoral nerve cath in place 07/17 GS/TA/EHL/Peroneal muscle groups LTSI DP/SP/SN/TN distributions 2+ DP pulse Feet WWP Data Review WBC/Hgb/Hct/Plts: 8.26/10.3/30.1/153 (04/14 655) Na/K/Cl/CO2: 139/4.5/104/28 (04/14 655) BUN/Cr/glu/ALT/AST/amyl/lip: 13/0.82/89/--/--/--/-- (04/14 655) Assessment: Postoperative Day 3 s/p Right Total Knee Replacement. Stable overnight. On Pathway. Plan: 1. DVT ppx: dalteparin to xarelto, SCD's while in bed. 2. PT 3. Weight Bearing: WBAT. 4. Precautions: knee immobilizer while ambulating with femoral nerve cath in place 5. Encourage PO intake 6. Dispo: Plan for home today. Carlo Lopez MD 04/14/2014 9:28 [phone] * Susi Cevallos - 04/13/2014 1025 EST Data: Right peripheral IV occluded when attempted to flush with NS. Pt complains of pain with flush Action: RN notified and took IV out Response: Pt satisfied and resting comfortably in recliner. Susi Cevallos 04/13/2014 10:26 * Heike Deluna - 04/13/2014 0927 EST Anesthesia Pain Service Rounding Note Chief complaint: pain control s/p total knee replacement HPI: This is a 58 y.o. female now POD # 2 s/p right TKA. She is doing well this morning with pain control and has been OOB already . Pain Level 4/10 A 10 point ROS was reviewed and negative except as stated in the HPI. Coagulation Status: NA Scheduled Medications: Current Facility-Administered Medications Medication Route Frequency ??? acetaminophen (TYLENOL) tablet 650 mg oral Q6H ??? albuterol inhaler 2 Puff inhalation Q4H PRN ??? ascorbic acid (VITAMIN C) tablet 500 mg oral QHS ??? atenolol (TENORMIN) tablet 50 mg oral DAILY ??? bisacodyl (DULCOLAX) suppository 10 mg rectal AT BEDTIME PRN ??? calcium carbonate (TUMS) 200 mg calcium (500 mg) per chewable tablet tablet,chewable 1-2 Tab oral Q2H PRN ??? Cholecalciferol (Vitamin D3) tablet 400 Units oral QHS ??? clonazePAM (KLONOPIN) tablet 1 mg oral TID ??? dalteparin (FRAGMIN) 5,000 anti-Xa unit/0.2 mL injection 5,000 Units subcutaneous DAILY Followed by ??? [START ON 04/22/2014] rivaroxaban (XARELTO) tablet 10 mg oral DAILY WITH DINNER ??? dextrose 5 %-0.9 % sodium chloride infusion intravenous CONTINUOUS ??? diphenhydrAMINE (BENADRYL) elixir 12.5-25 mg oral Q6H PRN ??? docusate sodium (COLACE) capsule 200 mg oral BID ??? lamoTRIgine (LAMICTAL) tablet 50 mg oral BID ??? magnesium hydroxide (MILK OF MAGNESIA) 400 mg/5 mL suspension 30 mL oral AT BEDTIME PRN ??? methocarbamol (ROBAXIN) tablet 500-1,000 mg oral Q6H PRN ??? mometasone-formoterol (DULERA) 200-5 mcg/actuation inhaler 2 Puff inhalation BID ??? Multivitamins with Minerals tablet 1 Tab oral QHS ??? naproxen (NAPROSYN) tablet 500 mg oral BID (BREAKFAST/DINNER) ??? ondansetron (PF) (ZOFRAN) injection 2-4 mg intravenous Q6H PRN ??? oxyCODONE (ROXICODONE) immediate release tablet 5-20 mg oral Q3H PRN ??? pantoprazole (PROTONIX) tablet 40 mg oral DAILY ??? PEG 3350-Electrolytes (MIRALAX) packet 17 g oral DAILY ??? PEG 3350-Electrolytes (MIRALAX) packet 17 g oral Daily PRN ??? prochlorperazine (COMPAZINE) tablet 10 mg oral Q6H PRN ??? prochlorperazine maleate (COMPAZINE) 25 mg suppository 25 mg rectal Q12H PRN ??? ropivacaine 0.1 % nerve block infusion femoral nerve CONTINUOUS ??? [START ON 04/14/2014] sodium phosphate (FLEET) enema 1 Enema rectal Daily PRN ??? traMADol (ULTRAM) tablet 50-100 mg oral Q6H ??? zinc sulfate (ZINCATE) capsule 220 mg oral QHS ??? zolpidem (AMBIEN) tablet 10 mg oral DAILY Allergies: Allergies Allergen Reactions ??? Neurontin [Gabapentin] Burning in hands and feet ??? Topamax [Topiramate] Burning in hands and feet ??? Asa [Aspirin] Other (See Comments) Dizziness and elevated BP per pt Labs: Lab Results Component Value Date WBC 8.14 04/13/2014 HGB 10.2* 04/13/2014 HCT 28.9* 04/13/2014 MCV 91 04/13/2014 PLT 134* 04/13/2014 No results found for this basename: INR, PROTIME Examination: Vitals: Blood pressure 122/91, pulse 70, temperature 35.8 ??C (96.4 ??F), temperature source Tympanic, resp. rate 17, height 149.9 cm (59.02), weight 77.111 kg (170 lb), SpO2 96.00%. General:AAOx3, sitting on Cardiac:RRR Resp:CTA Neuro:4/5 with right straight leg raise, decreased sensation in right femoral distribution Site:nerve catheter site clean, non-erythematous Analysis and Plan: This is a 58 y.o. year old female now POD # 2 s/p right TKA with femoral nerve catheter for pain control. Her pain is well controlled - catheter removed with tip in tact Cayden Stein MD #[id number] 04/13/2014, 9:27 I was present for the evaluation and examination of this patient and agree with the above plan. Heike Deluna MD * Elton Nice, PT - 04/13/2014 0838 EST Rehabilitation Therapies [facility] Physical Therapy Encounter Note Date of Service: 04/13/2014 SUBJECTIVE: AM: I've been trying to bend it like my doctor said. PM: I want to try stairs and getting in and OOB. OBJECTIVE: Intervention completed today: Physical Therapy today at: 1000 Total treatment time: 25 minutes. Timed code treatment minutes: 25 Vital signs were monitored and were stable throughout physical therapy session. Incision/involved limb: n/e Therapeutic Activity (n/c): Sit <> stand from recliner with min contact assist for safety. Gait Training (1): Pt amb with RW, no immobilizer, ~20 feet, min contact assist at trunk and knee for joint protectionwith verbal cues to promote step thru gait, increased knee extension mid stance appropriate sequencing. Therapeutic exercise (1): Reinforced therapeutic exercises with patient and provided pt with cueingto facilitate improved technique/proper performance in order to optimize outcome. Active (A*): X 10 reps Supine in recliner Ankle pumps Quad sets Gluteal Sets Active Assisted (AA*) x 10 reps Supine Hip abd/add Heel slides Short arc quads Straight leg raise LAQ's ROM: Flexion: supine knee flexion 90 ; sitting knee flexion: n/e Extension: supine knee extension -25 ; sitting knee extension: n/e Cryocuff: Patient educated on how to fill, empty, position cuff and cooler. Ice changed in cooler and cuff placed back on patients knee. PM SESSION OBJECTIVE: Intervention completed today: Physical Therapy today at: [id number] Total treatment time: 25 minutes. Timed code treatment minutes: 25 Vital signs have been stable with interventions and were not monitored. Incision/involved limb: n/e Therapeutic Activity (n/c): Bed Mobility: Pt performed sit->supine with supervision assist and verbal cues for sequencing, Lside of bed no bed features. Transfers: pt performed sit <-> stand transfers from recliner, toilet, with supervision assist and verbal cues for hand placement/ safety. Gait Training (1): Pt amb with RW, ~50 feet, min contact assist with verbal cues to promote heel toe progression, stepthru gait, increased knee extension mid stance and appropriate sequencing. Stairs: Patient ascended/descended four stairs with B rails, patient required min contact assist and verbalcues for sequencing. Therapeutic exercise (1): Reinforced therapeutic exercises and provided pt with cueing to facilitate improved technique/proper performance in order to optimize outcome. Active (A): x 10 reps Standing Hip flexion Hip abd/add Knee flexion/extension Active (A) X 5- 10 reps Seated LAQ's ROM: See above Cryocuff: Patient educated on how to fill, empty, position cuff and cooler. Cuff replaced on patient's knee Patient/Family Education: Topic: Assistive device/technique Bed mobility Equipment use Exercise Gait Precautions/protocol Safety Stairs Transfers Learner: patient Method: verbal and handout Barriers to Learning: none noted Outcome: needs practice and verbalized understanding Team Communication: Pt status discussed with nursing prior to and after treatment session ASSESSMENT: Patient with slowly improving knee control and tendency to maintain knee flexion duringsitting and stance. She is at risk for limited knee extension. This concern was discussed with patient, who is anxious to improve. Expect she will be ready for d/c tomorrow after additional PT session to review stairs and exercises. She will likely at that time have adequate mobility for d/c home. PLAN: Continue per plan of care Recommended Discharge Destination: Home with family Recommended Discharge Services: Home health physical therapy Recommended Equipment Needs: Patient has all necessary equipment Other recommendations: No other consults recommended at this time Pager: [phone] ELTON NICE PT 04/13/2014 8:38 * Tio Keating MD - 04/13/2014 0636 EST Orthopaedics Recon Progress Note Admit Date: 04/11/2014 Hospital LOS: 2 days Postoperative Day 2 Procedure: Right Total Knee Replacement [Tio Keating MD] Subjective: No Acute Events. Denies nausea, vomiting, chest pain, SOB. Tolerating PO intake. Voiding independently. Objective: Patient Vitals for the past 8 hrs: BP Temp Temp src Resp SpO2 04/13/14 0506 133/60 mmHg 35.8 ??C (96.4 ??F) Tympanic 17 96 % Intake/Output Summary (Last 24 hours) at 04/13/14 0636 Last data filed at 04/13/14 0451 Gross per 24 hour Intake 1132.5 ml Output 1700 ml Net -567.5 ml Patient is alert and oriented times three. RLE Dressing Clean/Dry/Intact Femoral nerve cath in place 07/17 GS/TA/EHL/Peroneal muscle groups LTSI DP/SP/SN/TN distributions 2+ DP pulse Feet WWP Data Review WBC/Hgb/Hct/Plts: 10.97/11.3/32.4/157 (04/12 630) Na/K/Cl/CO2: 138/4.5/106/25 (04/12 630) BUN/Cr/glu/ALT/AST/amyl/lip: 16/0.64/--/--/--/--/-- (04/12 630) Assessment: Postoperative Day 2 s/p Right Total Knee Replacement. Stable overnight. On Pathway. PT recs home. Femoral nerve cath out today. Plan: 1. DVT ppx: dalteparin to xarelto, SCD's while in bed. 2. PT 3. Weight Bearing: WBAT. 4. Precautions: knee immobilizer while ambulating with femoral nerve cath in place 5. Encourage PO intake 6. Dispo: PT recs home in 1-2 days Call Silvia Noonan or Curly Goldsmith with questions. Greg Barnes MD 04/13/2014, 6:36 Attestation: I saw and evaluated the patient on Apr 13. I agree with the findings and plan of care as documented in the resident's/fellow's note. Tio Keating MD 04/13/2014 10:12 * Elton Nice, PT - 04/12/2014 1444 EST Rehabilitation Therapies [facility] Physical Therapy Initial Evaluation Note Date of Service: 04/12/2014 Reason for Referral: Evaluate and treat Precautions: Total knee precautions, WBTT, activity as tolerated, ambulate with assistive device SUBJECTIVE: I have a herniated disc in my back. This bed hurts. Pain: Location: R knee Intensity: 4/10 (at present), 4/10 (at best), 8/10 (at worst) Frequency: constant Quality: n/e Aggravating factors: Mobility and ROM Alleviating factors: Rest, medication, ice OBJECTIVE: Patient Profile: Patient is a 58 y.o. female admitted on 04/11/2014 secondary to *Right Total Knee Replacement 715.36 LOC OSTEOARTH NOS-L/LEG[ICD-9-CM]. The patient lives at [address] [place] [address]. Home environment Lives: with family Caregiver Support: 24-hour assist Equipment Available: Rolling walker and Raised toilet seat Home Environment: mobile home Home Layout: One story. Entry stairs: three with rails Prior Level of Function: Independent Services prior to admission: None Work/Leisure: Homemaker HPI per Dr. Lopez 04/01: HPI: 58 y.o. female. 1-year history of generalized right knee pain with the medial side being worse. She was previously assessed in [facility] by Dr Kitchen and was bookedfor a partial versus a total knee replacement. Dominique continues to complain of medial-sided pain, which interferes with her quality of daily living. She struggles with walking for more than 30 minutes. The knee locks and gives at times. She gained 20 pounds as a result of her inability to exercise. The knee also swells. She has not had any physiotherapy recently. She has had multiple injections, which provided short- term relief. Her past medical history includes hypertension, hysterectomy, asthma, COPD, CHF, bipolar disorder with anxiety and depression, herniated lumbar disk disease, migraines, and obstructive sleep apnea. Pre op Diagnosis/Indications: R knee arthritis Post op Diagnosis: Same Procedure: *Right Total Knee Replacement Medical/Surgical History: Current: Patient Active Problem List Diagnosis ??? Asthma ??? COPD (chronic obstructive pulmonary disease) ??? Bipolar disorder ??? CHF (congestive heart failure) ??? HTN (hypertension) ??? Obstructive sleep apnea ??? Fatty liver disease, nonalcoholic ??? Edema of lower extremity ??? Osteoarthritis of right knee ??? Localized osteoarthrosis not specified whether primary or secondary, lower leg ??? Pain in joint, lower leg Past: Past Medical History Diagnosis Date ??? Asthma ??? COPD (chronic obstructive pulmonary disease) ??? Bipolar disorder ??? HTN (hypertension) ??? CHF (congestive heart failure) ??? Obstructive sleep apnea unable to tolerate cpap mouth piece ??? Fatty liver disease, nonalcoholic ??? Edema of lower extremity No past surgical history on file. Medications: Medications reviewed Arousal, Attention, and Cognition: Orientation: Alert Oriented to person, place, and time Cardiopulmonary: Vital Signs: Activity Heart rate (bpm) Blood Pressure (mmHg) Respiratory rate (breaths/min) Oxygen Sat/ Fractions of inspired Oxygen SPO2/FIO2 % Pre 61 119/67 95% During Post 63 134/76 98% Integumentary/Anthropometric Characteristics: Palpation/Observation: Skin: skin intact, incision not evaluated due to intact dressing. Dressing C/D/I Edema: increased R knee Posture: No problem noted Range of Motion and Joint Integrity: Active Range of Motion: Within normal limits except as noted Upper Quarter: Left Upper Extremity: Right Upper Extremity: Cervical Spine: Lower Quarter: Left Lower Extremity: grossly WNL Right Lower Extremity: hip WNL, knee flexion 25-75. Lumbar Spine: N/E Muscle Performance: Strength: Formal resistive muscle testing was not performed due to functional screening Upper Quarter: Left Upper Extremity: grossly 5/5 Right Upper Extremity: grossly 5/5 Cervical Spine: N/E Lower Quarter: Left Lower Extremity: grossly 5/5 Right Lower Extremity: ankle 5/5, knee extension <3/5 Lumbar Spine: N/E Sensation, Reflexes, and Nerve Integrity: Light Touch Sensation: Upper Quarter: Intact C2-T1 Lower Quarter: Intact for lower extremities and some c/o decreased sensation R thigh Neuromotor Function/Development: No problems noted Balance, Locomotion, and Gait: Balance: Sitting Balance Static: independent Dynamic: able to reach beyond VASILE Standing balance Static: Requires BUE support Dynamic: Requires BUE support Locomotion: Not evaluated as wheelchair mobility does not apply to this patient. Gait: Assistive device/distance/assist/deviations: Patient provided with loaner rolling walker and walkeradjusted to patient. Patient ambulated three feet, bed > chair, immobilizer in place, with minimal contact assist. Verbal cues provided for sequencing. Patient demonstrating decreased heel/toe progression and antalgic, step-to gait. Self-Care, Home Management, Work, and Leisure: Mobility evaluation as follows: Rolling: N/E Supine to sit: HOB elevated @ 20 degrees, pt exited to the left side. Pt required minimal contact assist RLE Sit to supine: min assist RLE Sit to stand: minimal contact assist of 1, verbal cues for UE placement Stand to sit: minimal contact assist of 1, verbal cues for hand placement and joint protection techniques Bed to chair: minimal contact assist of 1 using rolling walker, verbal cues for sequencing Chair to bed: N/E Informed Consent: The patient consented to the physical therapy evaluation. The patient agrees to and understands the physical therapy treatment plan and goals. Interventions Completed Today: Physical Therapy today at: [id number] Total treatment time: 30 minutes. Timed code treatment minutes: 30 Intervention included: Therapeutic Exercise (1) Pt provided with TKR home exercise booklet and all precautions reviewed in detail Therex: active: ankle pumps, quad sets, glut set x 10 Active assistive: hip/knee flexion, hip abd/add, SAQ, SLR x 5 Patient was received sitting at edge of bed, LE dependent. Patient assisted to supine to assess R knee extension and required gentle stretch, positioning to encourage extension. PM Treatment Treatment Time: 5663-4653 Intervention: Therapeutic Activity (1) ?? Patient up in recliner, sitting upright to eat lunch, LE's in dependent position. ?? Transfer sit > stand with RW, knee immobilizer, min contact assist x 1. ?? Patient ambulated 6 steps forward/back with consistent blocking at R knee for increased knee flexion despite knee immobilizer in place and consistent verbal cueing. ?? Transfer stand>sit> supine with min assist RLE. ?? Pillow placed under R heel, after consult with Silvia Noonan to encourage knee flexion. Therapeutic Exercise (1) Right lower extremity therapeutic exercises The patient was instructed in and performed exercise below. Verbal and manual cues provided throughout to ensure optimal performance for maximum gains: Supine: 10 active repetitions Ankle pumps Quadricep sets- tactile cues Gluteal sets Supine: 10 AA repetitions, assist with all on technique and to increase ROM Hip flexion/knee flexion Hip abduction Straight leg raise Patient tolerated gentle stretch to extension. The patient was instructed in and performed six repetitions of incentive spirometry to 1500 cc withverbal cues for technique to maximize lung expansion and pacing. Patient/Family Education: Topic: Assistive device/technique Breathing exercises Exercise Gait Positioning Precautions/protocol Safety Transfers Learner: patient Method: verbal and handout Barriers to Learning: needs frequent cues Outcome: requires assist and needs practice Team Communication: Discussed current mobility status with nursing for assistance outside of PT session. Discharge recommendations discussed with family independence case manager. ASSESSMENT: Upper Quarter Screen: Given new use of assistive device this patient will need to be instructed in proper use of UE during mobility and prevention of overuse injuries as well as signs to watch for. Physical Therapy Diagnosis: This patient status post TKR presented with a PT diagnosis of decreasedROM, decreased strength, and decreased functional balance impacting functional mobility with post operative pain. Physical Therapy Prognosis: The patient tolerated the initiation of therapeutic exercise and mobilty well today. I anticipate that she will make steady gains per clinical pathway and that she will have good functional outcome upon discharge. I anticipate pt will be able to return home with assist and home health services within one to three days. Skilled physical therapy indicated for therapeuticexercise, therapeutic activity and gait training to maximize functional independence and custodial outcomes. Pain will be limiting factors to progress. Patient with poor knee control today s/p femoral nerve block, and immobilizer provide limited protection. Recommend limiting ambulation until knee control improves. As patient is most comfortable in sitting or with knee flexed, she will need encouragement to promote and achieve full knee extension. SHORT TERM GOALS ?? N/A SUPERVISOR DAIRY SANITATION GOALS TIME FRAME: 3-7 days ?? The patient will be able to perform bed mobility independently demonstrating appropriate sequencing/motor planning. ?? The patient will be able to perform transfers with modified independence while demonstrating appropriate hand placement with assistive device use. ?? The patient will be able to ambulate with modified independence 100-250 feet with the least restrictive assistive device with step through gait and heel contact, with most upright posture. ?? The patient and/or caregiver will be able to recall and demonstrate precautions. ?? The patient will be able to perform stairs with supervision assist with appropriate home set up and proper sequencing. ?? The patient/caregiver will be aware of the recommendations provided and demonstrate an appropriate technique/understanding of the recommendations. ?? The patient will be able to perform therapeutic exercises 10 times active with good technique with written copy of exercises. ?? The patient will demonstrate knee flexion ROM 5-90 A/AA. PLAN: Treatment/Intervention: Physical therapy will be provided by physical therapist and/or physical therapist special event assistant when medically appropriate. Frequency: Twice a day, Wednesday through Wednesday and one time a day, Wednesday and Wednesday during hospitalization Intensity: 30-45 minutes Duration: During hospitalization Interventions may include:Therapeutic exercises, Therapeutic activities and Gait training Patient/family education: Discharge planning, Equipment, Family training as appropriate, Precautions, Recommendations, Role of physical therapy/rehabilitation, Safety Further Data: stairs, ambulation Recommended Discharge Destination: Home with family Recommended Discharge Services: Home health physical therapy Recommended Equipment Needs: Patient has all necessary equipment Other recommendations: No other consults recommended at this time Pager: [phone] ELTON NICE PT, 04/12/2014, 8:55 * Myrna Angelo RN - 04/12/2014 7925 EST Initial Case Management/Social Work Assessment and Discharge Plan /Readmission Risk Assessment Physician working diagnosis: Right Total Knee Replacement on 04/11 Patient (or designee) understanding of admission: I hope I'll be able to do my walking again. Patient Contact Information: Patient's , Raymundo: [phone] (cell) MEDICAL AND COMMUNITY SERVICES: Primary Care Provider: Nadine Sadler NP Specialists seen on a consistent basis: Skilled home care services: Familiar with as had services DME Provider: CPAP vendor is [facility]: [facility], [place] LIVING ARRANGEMENTS AND ACCESSIBILITY ISSUES: Double-wide Trailer Are there any home access issues? Yes- 3 entry steps What in home social supports are available to the patient? The patient's is available to provide multimedia services coordinator support ADVANCED DIRECTIVES, POA &/or COLST IN PLACE: No (Patient has info at home) CULTURAL, ADVENT and/or LANGUAGE factors affecting health care/discharge planning: The patient is a 7th-Day Restorationist and declined a visit from the spiritual care office. She has no apparent language or cultural barriers to care. FUNCTIONAL & PSYCHOSOCIAL INFORMATION: The patient is functionally limited by both her knee andback pain. She manages her own ADLs and meal prep, but her assists with medication management. MEDICAL INSURANCE IN PLACE: Yes Medicaid Type: Community Coverage for prescriptions: Medicaid DISCHARGE RISK ASSESSMENT: Requires assistance with medication management;History of mental illness;Diagnosis of CHF/COPD/Diabetes/AIDS;Polypharmacy, > 7 medications Total # selected above: Score of 2 - 4: This patient is at MODERATE RISK for re-hospitalization Tentative plan to address the risk of re-hospitalization for those at HIGH or MODERATE RISK: Early inpatient rehab therapy or other consultation(s);Refer to skilled home care services INITIAL TRANSITION PLAN: New DME Requirements: Yes: Acquired all needed equipment prior to surgery Transportation from hospital in place? to provide transportation home. Initial plan discussed with: The patient Post hospitalization Plan: Patient to return to independent living with assist from . Patient is awaiting PT evaluation and recommendations. In the meantime, [facility] health [facility] ([phone]) for home PT. Referral made to [facility] to follow and support patient until discharge. Myrna Angelo RN [id number] 04/12/2014 13:31 * DelunaHeike granados - 04/12/2014 1053 EST Anesthesia Pain Service Rounding Note Chief complaint: pain control s/p total knee replacement HPI: This is a 58 y.o. female now POD # 1 s/p right TKA. She has significant pain in the back of her knee overnight, which is to be expected since the femoral nerve block does not cover this distribution.She is doing very well this AM. Pain Level 1/10 A 10 point ROS was reviewed and negative except as stated in the HPI. Coagulation Status: NA Scheduled Medications: Current Facility-Administered Medications Medication Route Frequency ??? acetaminophen (TYLENOL) tablet 650 mg oral Q6H ??? albuterol inhaler 2 Puff inhalation Q4H PRN ??? ascorbic acid (VITAMIN C) tablet 500 mg oral QHS ??? atenolol (TENORMIN) tablet 50 mg oral DAILY ??? [START ON 04/13/2014] bisacodyl (DULCOLAX) suppository 10 mg rectal AT BEDTIME PRN ??? calcium carbonate (TUMS) 200 mg calcium (500 mg) per chewable tablet tablet,chewable 1-2 Tab oral Q2H PRN ??? ceFAZolin (ANCEF) 2,000 mg in sodium chloride 0.9% 50 mL IVPB intravenous Q8H ??? Cholecalciferol (Vitamin D3) tablet 400 Units oral QHS ??? clonazePAM (KLONOPIN) tablet 1 mg oral TID ??? [START ON 04/13/2014] dalteparin (FRAGMIN) 5,000 anti-Xa unit/0.2 mL injection 5,000 Units subcutaneous DAILY Followed by ??? [START ON 04/22/2014] rivaroxaban (XARELTO) tablet 10 mg oral DAILY WITH DINNER ??? dextrose 5 %-0.9 % sodium chloride infusion intravenous CONTINUOUS ??? diphenhydrAMINE (BENADRYL) elixir 12.5-25 mg oral Q6H PRN ??? docusate sodium (COLACE) capsule 200 mg oral BID ??? lamoTRIgine (LAMICTAL) tablet 50 mg oral BID ??? [START ON 04/13/2014] magnesium hydroxide (MILK OF MAGNESIA) 400 mg/5 mL suspension 30 mL oral AT BEDTIME PRN ??? methocarbamol (ROBAXIN) tablet 500-1,000 mg oral Q6H PRN ??? mometasone-formoterol (DULERA) 200-5 mcg/actuation inhaler 2 Puff inhalation BID ??? Multivitamins with Minerals tablet 1 Tab oral QHS ??? naproxen (NAPROSYN) tablet 500 mg oral BID (BREAKFAST/DINNER) ??? ondansetron (PF) (ZOFRAN) injection 2-4 mg intravenous Q6H PRN ??? oxyCODONE (OXYCONTIN) CR tablet 10 mg oral Q12H ??? oxyCODONE (ROXICODONE) immediate release tablet 5-20 mg oral Q3H PRN ??? PEG 3350-Electrolytes (MIRALAX) packet 17 g oral DAILY ??? PEG 3350-Electrolytes (MIRALAX) packet 17 g oral Daily PRN ??? prochlorperazine (COMPAZINE) tablet 10 mg oral Q6H PRN ??? prochlorperazine maleate (COMPAZINE) 25 mg suppository 25 mg rectal Q12H PRN ??? ropivacaine 0.1 % nerve block infusion femoral nerve CONTINUOUS ??? [START ON 04/14/2014] sodium phosphate (FLEET) enema 1 Enema rectal Daily PRN ??? traMADol (ULTRAM) tablet 50-100 mg oral Q6H ??? zinc sulfate (ZINCATE) capsule 220 mg oral QHS ??? zolpidem (AMBIEN) tablet 10 mg oral DAILY Allergies: Allergies Allergen Reactions ??? Neurontin [Gabapentin] Burning in hands and feet ??? Topamax [Topiramate] Burning in hands and feet ??? Asa [Aspirin] Other (See Comments) Dizziness and elevated BP per pt Labs: Lab Results Component Value Date WBC 10.97 04/12/2014 HGB 11.3* 04/12/2014 HCT 32.4* 04/12/2014 MCV 91 04/12/2014 PLT 157 04/12/2014 No results found for this basename: INR, PROTIME Examination: Vitals: Blood pressure 124/74, temperature 36.1 ??C (97 ??F), temperature source Tympanic, resp. rate 16, height 149.9 cm (59.02), weight 77.111 kg (170 lb), SpO2 97.00%. General:AAOx3, sitting on Cardiac:RRR Resp:CTA Neuro:5/5 anna LE strength with straight leg raise Site:nerve catheter site clean, non-erythematous Analysis and Plan: This is a 58 y.o. year old female now POD # 1 s/p right TKA with femoral nerve catheter for pain control. We will plan to remove the catheter tomorrow AM per protocol. Heike Deluna MD #[id number] 04/12/2014, 10:53 * Susi Cevallos - 04/12/2014 1040 EST Data: Pt complains of lower back pain at 0730. Pt anxious to get out of bed. Action: Explained importance of safety and use of knee immobilizer. Repositioned pt on the edge of the bed and provided daily care. Response: States lower back feels much better after moving and repositioning. Susi Cevallos 04/12/2014 10:45 * Tio Keating MD - 04/12/2014 0640 EST Orthopaedics Recon Progress Note Admit Date: 04/11/2014 Hospital LOS: 1 day Postoperative Day 1 Procedure: Right Total Knee Replacement [Tio Keating MD] Subjective: No Acute Events. Denies nausea, vomiting, chest pain, SOB. Tolerating PO intake. Andujar in place. Objective: Patient Vitals for the past 8 hrs: BP Temp Temp src Resp SpO2 Height Weight 04/12/14 0601 107/62 mmHg 35.8 ??C (96.4 ??F) Tympanic 16 97 % - - 04/12/14 0300 - - - - - 149.9 cm (59.02) 77.111 kg (170 lb) 04/12/14 0132 117/68 mmHg 36 ??C (96.8 ??F) Tympanic 15 96 % - - 04/12/14 0105 - - - 18 95 % - - Intake/Output Summary (Last 24 hours) at 04/12/14 0640 Last data filed at 04/12/14 0620 Gross per 24 hour Intake 2897.74 ml Output 950 ml Net 1947.74 ml Patient is alert and oriented times three. RLE Dressing Clean/Dry/Intact 5/5 GS/TA/EHL/Peroneal muscle groups LTSI DP/SP/SN/TN distributions 2+ DP pulse Feet WWP Data Review Pending Assessment: Postoperative Day 1 s/p *Right Total Knee Replacement. Stable overnight. On Pathway. Plan: 1. 23 hr post-op antibiotics. 2. DVT ppx: Aspirin 325mg PO BID x 28d, SCD's while in bed. 3. Begin PT today 4. Weight Bearing: WBAT. 5. Precautions: knee immobilizer while ambulating with femoral nerve cath in place 6. D/C andujar catheter 7. Encourage PO intake 8. Dispo: Pending PT evaluation Call Silvia Noonan or Curly Goldsmith with questions. Greg Barnes MD 04/12/2014, 6:40 Attestation: I saw and evaluated the patient on Apr 12. I agree with the findings and plan of care as documented in the resident's/fellow's note. Tio Keating MD 04/12/2014 9:08 * Farzana Dave RN - 04/12/2014 0259 EST Data: Pt arrived from PACU to [place] [id number] @ 2230 s/p TRK. VSS, Lungs clear, +Pulses, CSMT's WDL throughout, Pt on 3L of 02. Dsg to Right knee CDI, A&Ox3. IVF, continuous nerve block running. Pt rated pain 0/10 on arrival to floor and goes up to 6/10 within an hour of arrival and states, Why does it hurt so much? Wears CPAP at night. Hx of Insomnia even with CPAP. Pt takes 10 mg of Oxycodone 4x a day at home. Action: Oriented Pt to floor and room, educated Pt on IS and completed all admission documentation.Administered medications per MAY. Oxycodone 20 mg. Reposition on right side. Response: Pt falls asleep after 20 mg of Oxycodone. Pt verbalized understanding of IS. Call [facility]. Will continue to monitor. * Aleah Marin - 04/04/2014 0951 EST Dominique Gates has been instructed as follows regarding medication administration for the day of the scheduled procedure. Date of Surgery: 04/11/14 Instructions for Taking Medications Day of Surgery Medication Last Dose Hold DOS Take DOS albuterol 90 mcg/actuation inhaler Yes atenolol (TENORMIN) 50 mg tablet Yes clonazePAM (KLONOPIN) 1 mg tablet Yes fluticasone-salmeterol (ADVAIR) 500-50 mcg/dose diskus inhaler Yes ibuprofen (MOTRIN) 200 mg tablet 04/04/14 lamoTRIgine (LAMICTAL) 25 mg tablet Yes OXYCODONE HCL (OXYCODONE ORAL) Yes promethazine (PHENERGAN) 25 mg tablet Yes sumatriptan (IMITREX) 6 mg/0.5 mL injection Yes zolpidem (AMBIEN) 10 mg tablet Yes documented in this encounter H&P Notes * Tio Lopez MD - 04/11/2014 1428 EST The preoperative history and physical which was performed within 30 days of this procedure has been reviewed and the clinically appropriate elements of the physical examination have been repeated. There are no changes to the documented history and physical or if so such changes are documented below Tio Lopez MD 04/11/2014 14:28 Source Note - FABRICATION LEAD, SCAN 2 - 04/04/2014 15:18 EST * FABRICATION LEAD, SCAN 2 - 04/04/2014 1518 EST documented in this encounter Nursing Notes * FABRICATION LEAD, SCAN 2 - 04/19/2014 1006 EST documented in this encounter OR Notes * OR PreOp - FABRICATION LEAD, SCAN 2 - 04/19/2014 1006 EST * OR Surgeon - Tio Keating MD - 04/11/2014 2044 EST OPERATIVE REPORT SERVICE DATE: 04/11/2014 SURGEON: Tio Keating MD WATER PLANT OPERATOR: Tio Lopez MD and FRANTZ Woodall. ANESTHESIA: Spinal. COMPLICATIONS: None. ESTIMATED BLOOD LOSS: Minimal. PREOPERATIVE DIAGNOSIS: Right knee osteoarthritis. POSTOPERATIVE DIAGNOSIS: Right knee osteoarthritis. PROCEDURE: Right total knee arthroplasty. COMPONENTS: [employer] size 3 PS Oxinium Legion femoral component, Kimberly II size 2 tibial baseplate, 9 mm Legion PS Crosslinked polyethylene liner, 2 bags of Simplex bone cement. NARRATIVE: The patient was brought to the operating room and a surgical pause was done based on theWHO criteria. IV antibiotics and TXA were given prophylactically. The patient received spinal anesthetic was placed supine on the operating room table. Tourniquet was applied to the right leg but not inflated. The right leg was then prepped and draped in the usual fashion. We began with a midline incision. This was followed by a medial parapatellar arthrotomy. We performed a medial release. The patella was everted. It was not very arthritic, a few osteophytes were removed. The medial compartment was very arthritic and the lateral had moderate arthritis. We then used the femoral drill to use as an intramedullary guide for the femur. We then resected 9 mm off the distal femur. We attempted tosize the femur, the space was too tight. Therefore, we proceeded with cutting the tibia first. We used the extramedullary guide and resected 2 off the medial side and 9 off the lateral side. We were pleased with our slope, alignment and rotation of the jig. Excess osteophytes were removed. We then redirected our attention back to the femur. We then sized it to be #3. We then used the 4-in-1 cutting block to perform our cuts. We made sure that we had the ideal external rotation. At that point, we removed the menisci and the remainder of the osteophytes. We then performed a trial reduction witha #2 tibia, #3 femur and #9 polyethylene liner. We completed the box cut. We then sized the tibia to a #2 and completed the keel cut. We then thoroughly irrigated the wound and inflated the tourniquet. Once the wound was dry, we used standard cement technique and impacted the #2 Kimberly nonporous tibial baseplate and a #3 PS Legion Oxinium femoral component. The knee was straightened with #9 trial poly. Excess cement was removed and the cement was allowed to harden. We were pleased with the range of motion, stability and patellar tracking of the knee. We then removed the trial poly and inserted the #9 Legion PS XLPE onto the tibial baseplate. We then thoroughly irrigated the wound. A #1 Vicryl was used to repair the fascia. The tourniquet was then deflated at 40 minutes. Final irrigation was carried out. A 2-0 Monocryl was used for subcutaneous closure and jose r, Dermabond and a sterile dressing were used for skin. The patient tolerated the procedure well and made it to recovery without any complications. Postop she will receive IV antibiotics and DVT prophylaxis. She will be weightbearing as tolerated. Final x-rays demonstrated components in good position with no retained foreign objects. Unless otherwise noted, there were no complications, no blood loss, no cultures obtained, no specimens removed, and no drains retained. Tio Keating MD 05 51 PM / Tio Keating MD pn Confirmation: [id number] Dictation ID: [id number] * Anesthesia Procedure Notes - FABRICATION LEAD, SCAN 2 - 04/11/2014 1817 EST * OR PreOp - FABRICATION LEAD, SCAN 2 - 04/11/2014 1756 EST * Anesthesia Preprocedure Evaluation - FABRICATION LEAD, SCAN 2 - 04/11/2014 1739 EST documented in this encounter Miscellaneous Notes * Plan of Care - Nikia Mclean RN - 04/14/2014 0353 EST Problem: PAIN Goal: Patient???s Pain And Discomfort Are Adequately Managed Outcome: Ongoing Data: Pt having pain issues overnight and unable to sleep. VS stable. CSMT's intact. Action: PRN and scheduled pain medications given. Assisted pt OOB to chair for comfort. CPAP at bedside and pt is using. Closed curtains and shut door to promote rest. Pt refusing cyro cuff. Response: Pt states pain is controlled. Resting comfortably OOB in chair. Call auguste within reach. Will continue with hourly checks and will cluster care to promote rest. Nikia Mclean RN 04/14/2014 3:51 * Plan of Care - Radha Gallagher RN - 04/13/2014 1458 EST Problem: PAIN Goal: Patient???s Pain And Discomfort Are Adequately Managed Data: Pt resting in bad states pain is 8/10 in rt knee. CSMT 's intact. Action: Jose Armando Noonan notified pain meds due at 1225. Cryro cuff on . Offered klonopin pt declined . Response: Will continue to monitor. And medicate as needed Radha Gallagher RN 04/13/2014 14:54 * Plan of Care - Nikia Mclean RN - 04/13/2014 0330 EST Problem: PAIN Goal: Patient???s Pain And Discomfort Are Adequately Managed Outcome: Ongoing Data: pt c/o pain in R-knee 9/10 on numeric scale. Pt up OOB with one assist and rolling walker. Ptusing immobilizer on R-knee t ambulate while CNB is in place. VS stable. Action: Medicated pt with scheduled and PRN pain medications. Assisted pt OOB to bathroom or to chair per patient request for comfort. Cyro cuff applied throughout shift. Response: Upon reassessment, pt sleeping comfortable. Will continue with hourly checks. Nikia Mclean RN 04/13/2014 3:27 * Plan of Care - Cassy Yoo RN - 04/12/2014 1600 EST Problem: MOBILITY Goal: Mobility/Activity Is Maintained At Optimum Level For Patient Outcome: Ongoing Data: Pt is alert and oriented x 3. Pt rates pain 6-8/10 in right knee/leg. CSMTs intact that can be assessed. Fem block running as ordered. Dressing changed by PA at bedside. Action: Pt OOB to chair with PT this AM. Pt needed immobilizer for mobility with fem block running pt has little control with right knee. Pt back to bed with PT this afternoon. Response: Pt tolerates mobility with very little control and with increased pain. Pt needs 2 assistwith mobility. Will continue to monitor. Cassy Yoo RN 04/12/2014 15:54 * Anesthesia Post-Eval - Eugene Alicea CRNA - 04/12/2014 1009 EST Post Anesthesia Evaluation Note Date of Service: 04/12/2014 Dominique Gates, a 58 y.o. year old female has received Regional Anesthetic She has been evaluated, assessed and discharged from anesthesia care with stable cardiorespiratory function and alert mental status. The last set of recorded vital signs and pain rating were reviewed: Temp: 36.1 ??C (97 ??F) (04/12/14810), Heart Rate: 70 BPM (04/12/14810), BP: 124/74 mmHg (04/12/14810), SpO2: 97 % (04/12/14810),Numeric Pain Level (Scale 1-10): 6 Dominique Gates participated in this evaluation unless otherwise noted. Her pain, nausea and vomiting have been managed and her body temperature and fluid balance have been restored. Additional monitoring and assessment needs have been addressed. If present, any postoperative events are documented below. If the regional block for postoperative analgesia was intended to last greater than 48 hours, Anitha will be followed by the Acute Pain Service. Eugene Alicea CRNA 04/12/2014 10:09 * Anesthesia Post-Eval - Eugene Alicea CRNA - 04/12/2014 1008 EST Post Anesthesia Evaluation Note Date of Service: 04/12/2014 Dominique Gates, a 58 y.o. year old female has received Regional Anesthetic She has been evaluated, assessed and discharged from anesthesia care with stable cardiorespiratory function and alert mental status. The last set of recorded vital signs and pain rating were reviewed: Temp: 36.1 ??C (97 ??F) (04/12/14810), Heart Rate: 70 BPM (04/12/14810), BP: 124/74 mmHg (04/12/14810), SpO2: 97 % (01/29/15 0811),Numeric Pain Level (Scale 1-10): 6 Dominique Gates participated in this evaluation unless otherwise noted. Her pain, nausea and vomiting have been managed and her body temperature and fluid balance have been restored. Additional monitoring and assessment needs have been addressed. If present, any postoperative events are documented below. If the regional block for postoperative analgesia was intended to last greater than 48 hours, NormaOtero will be followed by the Acute Pain Service. Eugene Alicea CRNA 04/12/2014 10:08 * Anesthesia Post-Eval - Gurmeet Salvador MD - 04/11/2014 1947 EST Post Anesthesia Evaluation Note Date of Service: 04/11/2014 Dominique Gates, a 58 y.o. year old female has received Regional Anesthetic She has been evaluated, assessed and discharged from anesthesia care with stable cardiorespiratory function and alert mental status. The last set of recorded vital signs and pain rating were reviewed: Temp: 36.8 ??C (98.2 ??F) (04/11/14 180), Heart Rate: 58 BPM (04/11/141944), BP: 98/57 mmHg (04/11/141929), Resp: 16 (04/11/141944), SpO2: 99 % (04/11/141944),Numeric Pain Level (Scale 1-10): 0 Dominique Gates participated in this evaluation unless otherwise noted. Her pain, nausea and vomiting have been managed and her body temperature and fluid balance have been restored. Additional monitoring and assessment needs have been addressed. If present, any postoperative events are documented below. If the regional block for postoperative analgesia was intended to last greater than 48 hours, NormaOtero will be followed by the Acute Pain Service. Gurmeet Salvador MD 04/11/2014 19:47 * Brief Op Note - Tio Lopez MD - 04/11/2014 1527 EST BRIEF OP NOTE Surgeon: Tio Keating MD Assistants: FRANTZ Sanchez MD Pre op Diagnosis/Indications: R knee arthritis Post op Diagnosis: Same Procedure: *Right Total Knee Replacement 715.36 LOC OSTEOARTH NOS-L/LEG[ICD-9-CM] , 04/11/2014 Anesthesia: Spinal Findings: Please see dictated note. Fluids: Blood loss: 250 ml; IV fluids: 1400 ml lactated ringers; Urine output: 150 ml Specimens sent: None Cultures sent: None Tourniquet time: 40 minutes Complications: None Condition: Stable Disposition: Pacu * Plan of Care - Tio Lopez MD - 04/01/2014 1016 EST Pre-operative evaluation for Total Knee Arthoplasty The following is a list of known issues and planned treatments for this patient and does not constitute a complete medical history or medical evaluation. This data is gathered from a chart review. Diagnosis: Right Knee Osteoarthritis Planned Procedure: Right Total Knee Arthroplasty [Tio Keating MD] HPI: 58 y.o. female. 1-year history of generalized right knee pain with the medial side being worse. She was previously assessed in [facility] by Dr Kitchen and was booked for a partial versus a total knee replacement. Dominique continues to complain of medial-sided pain, which interferes with her quality of daily living. She struggles with walking for more than 30 minutes. The knee locks and gives at times. She gained 20 pounds as a result of her inability to exercise. The knee also swells. Shehas not had any physiotherapy recently. She has had multiple injections, which provided short-term relief. Her past medical history includes hypertension, hysterectomy, asthma, COPD, CHF, bipolar disorder with anxiety and depression, herniated lumbar disk disease, migraines, and obstructive sleep apnea. Past Medical History Diagnosis Date ??? Asthma ??? COPD (chronic obstructive pulmonary disease) ??? Bipolar disorder ??? HTN (hypertension) ??? CHF (congestive heart failure) ??? Obstructive sleep apnea unable to tolerate cpap mouth piece ??? Fatty liver disease, nonalcoholic ??? Edema of lower extremity Patient Active Problem List Diagnosis Date Noted ??? Osteoarthritis of right knee 02/13/2014 Priority: Medium ??? Asthma ??? COPD (chronic obstructive pulmonary disease) ??? Bipolar disorder ??? CHF (congestive heart failure) ??? HTN (hypertension) ??? Obstructive sleep apnea unable to tolerate cpap mouth piece ??? Fatty liver disease, nonalcoholic ??? Edema of lower extremity No past surgical history on file. Medical Risk Factors ?? Age: 58 y.o. (if >80 years) ?? BMI: There is no weight on file to calculate BMI. (if >30) ?? Diabetes: No No results found for this basename: HGBA1C ? Malnutrition: No ?? Anemia: No No results found for this basename: WBC, HGB, HCT, MCV, PLT ?? Cardiac disease: No ?? Pulmonary disease: Yes ?? Pneumonia (last 12 months): No ?? Obstructive sleep apnea: Yes ?? Bleeding disorder: No ?? Venous thromboembolism: No ?? Heterotopic ossification risk factors: No ?? Renal disease: No No results found for this basename: CREATININE, CREATININEEX No results found for this basename: NA, NAEXT, K, KEXT, CL, CLEXT, CO2, CO2EXT ?? Genitourinary disease: No ?? Dementia: No ?? Delirium: No ?? Narcotic sensitivity: No Calculation of the Charlson Comorbidity Index (* near all positive findings) Score for each condition 1 Myocardial infarct 1 Congestive heart failure 1 Peripheral vascular disease 1 Cerebrovascular disease 1 Dementia 1 Chronic pulmonary disease 1 Connective tissue disease 1 Ulcer disease 1 Mild liver disease 1 Diabetes 2 Hemiplegia 2 Moderate or severe renal disease 2 Diabetes with end organ damage 2 Any tumor 2 Leukemia 2 Lymphoma 3 Moderate or severe liver disease 6 Metastatic solid tumor 6 Acquired immunodeficiency syndrome Charlson Comorbidity Index (CCI): 2 (CHF, COPD) Allergies: Allergies Allergen Reactions ??? Neurontin [Gabapentin] Burning in hands and feet ??? Topamax [Topiramate] Burning in hands and feet ??? Asa [Aspirin] Other (See Comments) Dizziness and elevated BP per pt Nasal Swab: positive - MSSA Pain control pre-op protocol: tylenol 1000 mg PO, lyrica 75 mg PO, oxycontin 10 mg PO, dexamethasone 8 mg IV, HOLD 1200mg gabapentin Post-op pain control:tylenol 650 mg q6h, naproxen 500 mg BID, oxycontin 10 mg BID, oxycodone PO PRN, HOLD 600 gabapentin TID x 14 days Perioperative antibiotics: Ancef Perioperative tranexamic acid: Yes Postoperative DVT prophylaxis: Aspirin 325mg PO BID x 28d Pre-op H&P complete?: Yes Hospitalist consult needed: No Other consults: None Discharge plan: Home vs. Rehab. TBD. Special needs or concerns not already mentioned:None Tio Lopez MD 04/01/2014, 10:16 documented in this encounter Plan of Treatment Scheduled Referrals Name Type Priority Associated Diagnoses Order Schedule PROVIDER FOLLOW-UP INSTRUCTIONS Outpatient Referral Routine Ordered: 04/14/2014 PROVIDER FOLLOW-UP INSTRUCTIONS Outpatient Referral Routine Ordered: 04/14/2014 documented as of this encounter Procedures Procedure Name Priority Date/Time Associated Diagnosis Comments IMPLANT RECORD - SCANNED 04/19/2014 10:16 EST ECG REPORT - SCANNED 04/19/2014 10:06 EST COMPLETE BLOOD COUNT Routine 04/14/2014 6:56 EST BUN Routine 04/14/2014 6:56 EST GLUCOSE, SERUM Routine 04/14/2014 6:56 EST CREATININE Routine 04/14/2014 6:56 EST ELECTROLYTES Routine 04/14/2014 6:56 EST COMPLETE BLOOD COUNT Routine 04/13/2014 6:50 EST BUN Routine 04/13/2014 6:50 EST GLUCOSE, SERUM Routine 04/13/2014 6:50 EST CREATININE Routine 04/13/2014 6:50 EST ELECTROLYTES Routine 04/13/2014 6:50 EST SCREENING GLUCOSE Routine 04/12/2014 6:3 1 EST COMPLETE BLOOD COUNT Routine 04/12/2014 6:31 EST BUN Routine 04/12/2014 6:31 EST CREATININE Routine 04/12/2014 6:31 EST ELECTROLYTES Routine 04/12/2014 6:31 EST GLUCOSE, GLUCOMETER Routine 04/12/2014 6 :16 EST GLUCOSE, GLUCOMETER Routine 04/11/2014 2 3:33 EST KNEE 1 OR 2 VIEWS Routine 04/11/2014 17: 59 EST ANESTHESIA NERVE BLOCK FEMORAL Routine 04/11/2014 11:20 EST ORDERS - SCANNED 04/06/2014 11:1 7 EST ECG REPORT - SCANNED 04/06/2014 9:07 EST ECG REPORT - SCANNED 04/04/2014 15:18 EST documented in this encounter Results * IMPLANT RECORD - SCANNED (04/19/2014 10:16 EST) 04/19/2014 10:1 6 EST Scan 2 [employer] PROCEDURE/MINOR JACKIE GICAL ORDERABLES * ECG REPORT - SCANNED (04/19/2014 10:06 EST) 04/19/2014 10:0 6 EST Scan 2 [employer] PROCEDURE/MINOR JACKIE GICAL ORDERABLES * (ABNORMAL) HEMAGRAM (04/14/2014 6:56 EST) WBC 8.26 4.0 - 12.4 K/cmm 04/14/2014 8:28 [facility] RBC 3.26(L) 3.86 - 5.04 M/cmm 04/14/2014 8:28 [facility] Hemoglobin 10.3(L) 11.6 - 15.2 gm/dl 04/14/2014 8:28 [facility] HCT 30.1(L) 34.9 - 44.4 % 04/14/2014 8:28 [facility] MCV 92 81 - 98 fl 04/14/2014 8:28 [facility] MCH 31.5 26.7 - 33.3 pg 04/14/2014 8:28 [facility] MCHC 34.1 32.1 - 35.9 gm/dl 04/14/2014 8:28 [facility] RDW-CV 12.7 11.7 - 14.6 % 04/14/2014 8:28 [facility] RDW-SD 42.0 37.6 - 50.3 fl 04/14/2014 8:28 [facility] PLT 153 141 - 320 K/cmm 04/14/2014 8:28 [facility] MPV 8.3 7.5 - 11.2 fl 04/14/2014 8:28 [facility] Blood specimen (specimen) BLOOD SPECIMEN / Unknown 04/14/2014 6:56 EST 04/14/2014 8:10 EST Billie Messina HEMATOLOGY & PF4 ORD ERABLES Performing Organization Address City/[facility]/ZIP Co de Phone Number [facility] [address] [place] [address] * GLUCOSE, SERUM (04/14/2014 6:56 EST) Glucose, Serum 89 70 - 100 mg/dl 04/14/2014 9:12 [facility] Blood specimen (specimen) BLOOD SPECIMEN / Unknown 04/14/2014 6:56 EST 04/14/2014 8:10 EST Billie Messina CHEMISTRY & BLOOD GA S ORDERABLES Performing Organization Address [facility] Co de Phone Number [facility] [address] [place] [address] * CREATININE (04/14/2014 6:56 EST) Creatinine 0.82 0.52 - 1.04 mg/dl 04/14/2014 9:12 [facility] GFR, Calculated >60 >60 ml/min/1.7 3m2 04/14/2014 9:12 [facility] Blood specimen (specimen) BLOOD SPECIMEN / Unknown 04/14/2014 6:56 EST 04/14/2014 8:10 EST Billie Caraballogall CHEMISTRY & BLOOD GA S ORDERABLES Performing Organization Address City/[facility]/ZIP Co de Phone Number [facility] [address] [place] [address] * BUN (04/14/2014 6:56 EST) BUN 13 10 - 26 mg/dl 04/14/2014 9:12 EST [facility] Blood specimen (specimen) BLOOD SPECIMEN / Unknown 04/14/2014 6:56 EST 04/14/2014 8:10 EST Billie Caraballogall CHEMISTRY & BLOOD GA S ORDERABLES Performing Organization Address [facility] Co de Phone Number [facility] [address] [place] [address] * ELECTROLYTES (04/14/2014 6:56 EST) Sodium 139 136 - 145 mEq/L 04/14/2014 9:12 [facility] Potassium 4.5 3.5 - 5.0 mEq/L 04/14/2014 9:12 [facility] Chloride 104 96 - 110 mEq/L 04/14/2014 9:12 [facility] CO2 28 24 - 32 mEq/L 04/14/2014 9:12 [facility] Blood specimen (specimen) BLOOD SPECIMEN / Unknown 04/14/2014 6:56 EST 04/14/2014 8:10 EST Billie Caraballogall CHEMISTRY & BLOOD GA S ORDERABLES Performing Organization Address City/[facility]/ZIP Co de Phone Number [facility] [address] [place] [address] * (ABNORMAL) HEMAGRAM (04/13/2014 6:50 EST) WBC 8.14 4.0 - 12.4 K/cmm 04/13/2014 8:44 [facility] RBC 3.16(L) 3.86 - 5.04 M/cmm 04/13/2014 8:44 [facility] Hemoglobin 10.2(L) 11.6 - 15.2 gm/dl 04/13/2014 8:44 [facility] HCT 28.9(L) 34.9 - 44.4 % 04/13/2014 8:44 [facility] MCV 91 81 - 98 fl 04/13/2014 8:44 [facility] MCH 32.2 26.7 - 33.3 pg 04/13/2014 8:44 [facility] MCHC 35.2 32.1 - 35.9 gm/dl 04/13/2014 8:44 [facility] RDW-CV 12.7 11.7 - 14.6 % 04/13/2014 8:44 [facility] RDW-SD 40.7 37.6 - 50.3 fl 04/13/2014 8:44 [facility] PLT 134(L) 141 - 320 K/cmm 04/13/2014 8:44 [facility] MPV 8.2 7.5 - 11.2 fl 04/13/2014 8:44 [facility] Blood specimen (specimen) BLOOD SPECIMEN / Unknown 04/13/2014 6:50 EST 04/13/2014 7:45 EST Billie Messina HEMATOLOGY & PF4 ORD ERABLES [facility] [address] [place] [address] * (ABNORMAL) GLUCOSE, SERUM (04/13/2014 6:50 EST) Glucose, Serum 112(H) 70 - 100 mg/dl 04/13/2014 8:31 [facility] Blood specimen (specimen) BLOOD SPECIMEN / Unknown 04/13/2014 6:50 EST 04/13/2014 7:45 EST Billie Messina CHEMISTRY & BLOOD GA S ORDERABLES Performing Organization Address [facility] Co de Phone Number [facility] [address] [place] [address] * CREATININE (04/13/2014 6:50 EST) Creatinine 0.82 0.52 - 1.04 mg/dl 04/13/2014 8:31 [facility] GFR, Calculated >60 >60 ml/min/1.7 3m2 04/13/2014 8:31 [facility] Blood specimen (specimen) BLOOD SPECIMEN / Unknown 04/13/2014 6:50 EST 04/13/2014 7:45 EST Billie Joy [employer] CHEMISTRY & BLOOD GA S ORDERABLES Performing Organization Address [facility] Co de Phone Number [facility] [address] [place] [address] * BUN (04/13/2014 6:50 EST) BUN 16 10 - 26 mg/dl 04/13/2014 8:31 [facility] Blood specimen (specimen) BLOOD SPECIMEN / Unknown 04/13/2014 6:50 EST 04/13/2014 7:45 EST Billie Joy [employer] CHEMISTRY & BLOOD GA S ORDERABLES Performing Organization Address [facility] de Phone Number [facility] [address] [place] [address] * ELECTROLYTES (04/13/2014 6:50 EST) Sodium 140 136 - 145 mEq/L 04/13/2014 8:31 [facility] Potassium 4.9 3.5 - 5.0 mEq/L 04/13/2014 8:31 [facility] Chloride 106 96 - 110 mEq/L 04/13/2014 8:31 [facility] CO2 28 24 - 32 mEq/L 04/13/2014 8:31 [facility] Blood specimen (specimen) BLOOD SPECIMEN / Unknown 04/13/2014 6:50 EST 04/13/2014 7:45 EST Billie Messina CHEMISTRY & BLOOD GA S ORDERABLES Performing Organization Address City/[facility]/ZIP Co de Phone Number [facility] [address] [place] [address] * (ABNORMAL) HEMAGRAM (04/12/2014 6:31 EST) WBC 10.97 4.0 - 12.4 K/cmm 04/12/2014 7:43 [facility] RBC 3.56(L) 3.86 - 5.04 M/cmm 04/12/2014 7:43 [facility] Hemoglobin 11.3(L) 11.6 - 15.2 gm/dl 04/12/2014 7:43 [facility] HCT 32.4(L) 34.9 - 44.4 % 04/12/2014 7:43 [facility] MCV 91 81 - 98 fl 04/12/2014 7:43 [facility] MCH 31.8 26.7 - 33.3 pg 04/12/2014 7:43 [facility] MCHC 35.0 32.1 - 35.9 gm/dl 04/12/2014 7:43 [facility] RDW-CV 12.3 11.7 - 14.6 % 04/12/2014 7:43 [facility] RDW-SD 39.8 37.6 - 50.3 fl 04/12/2014 7:43 [facility] PLT 157 141 - 320 K/cmm 04/12/2014 7:43 [facility] MPV 8.2 7.5 - 11.2 fl 04/12/2014 7:43 [facility] Blood specimen (specimen) BLOOD SPECIMEN / Unknown 04/12/2014 6:31 EST 04/12/2014 7:06 EST Billie Messina HEMATOLOGY & PF4 ORD ERABLES Performing Organization Address City/[facility]/ZIP Co de Phone Number [facility] [address] [place] [address] * CREATININE (04/12/2014 6:31 EST) Creatinine 0.64 0.52 - 1.04 mg/dl 04/12/2014 7:38 [facility] GFR, Calculated >60 >60 ml/min/1.7 3m2 04/12/2014 7:38 [facility] Blood specimen (specimen) BLOOD SPECIMEN / Unknown 04/12/2014 6:31 EST 04/12/2014 7:06 EST Billie Messina CHEMISTRY & BLOOD GA S ORDERABLES Performing Organization Address City/[facility]/ZIP Co de Phone Number [facility] [address] [place] [address] * BUN (04/12/2014 6:31 EST) BUN 16 10 - 26 mg/dl 04/12/2014 7:38 [facility] Blood specimen (specimen) BLOOD SPECIMEN / Unknown 04/12/2014 6:31 EST 04/12/2014 7:06 EST Billie Messina CHEMISTRY & BLOOD GA S ORDERABLES [facility] [address] [place] [address] * ELECTROLYTES (04/12/2014 6:31 EST) Sodium 138 136 - 145 mEq/L 04/12/2014 7:38 [facility] Potassium 4.5 3.5 - 5.0 mEq/L 04/12/2014 7:38 [facility] Chloride 106 96 - 110 mEq/L 04/12/2014 7:38 [facility] CO2 25 24 - 32 mEq/L 04/12/2014 7:38 [facility] Blood specimen (specimen) BLOOD SPECIMEN / Unknown 04/12/2014 6:31 EST 04/12/2014 7:06 EST Billie Caraballogall CHEMISTRY & BLOOD GA S ORDERABLES Performing Organization Address City/[facility]/ZIP Co de Phone Number [facility] [address] [place] [address] * (ABNORMAL) SCREENING GLUCOSE (04/12/2014 6:31 EST) Glucose, Screening 139(H) 70 - 100 mg/dl 04/12/2014 7:38 EST [facility] Blood specimen (specimen) BLOOD SPECIMEN / Unknown 04/12/2014 6:31 EST 04/12/2014 7:06 EST Billie Joy Siddharth CHEMISTRY & BLOOD GA S ORDERABLES Performing Organization Address City/[facility] Co de Phone Number [facility] [address] [place] [address] * (ABNORMAL) GLUCOSE, GLUCOMETER (04/12/2014 6:16 EST) Glucose, Fingerstick 130(H) 70 - 100 mg/dl 04/12/2014 6:18 EST [facility] Associate Professor Of Law ID [id number] 04/12/2014 6:18 EST [facility] Comment:Test Performed by Nu rsing Services BLOOD SPECIMEN / Unknown 04/12/2014 6:16 EST 04/12/2014 6:18 EST Tio Keating MD, MSc [facility] CHEMISTR Y & BLOOD GAS ORDERABLES Performing Organization Address City/[facility]/ZIP Co de Phone Number [facility] [address] [place] [address] * (ABNORMAL) GLUCOSE, GLUCOMETER (04/11/2014 23:33 EST) Glucose, Fingerstick 186(H) 70 - 100 mg/dl 04/11/2014 23:34 EST [facility] Associate Professor Of Law ID [id number] 04/11/2014 23:34 EST [facility] Comment:Test Performed by Nu rsing Services BLOOD SPECIMEN / Unknown 04/11/2014 23:33 EST 04/11/2014 23:34 EST Tio Keating MD, MSc [facility] CHEMISTR Y & BLOOD GAS ORDERABLES [facility] [address] [place] [address] * KNEE 1 OR 2 VIEWS (04/11/2014 17:59 EST) Anatomical Region Laterality Modality Other 04/11/2014 17:5 9 EST 04/11/2014 18:10 EST Narrative 04/11/2014 18:10 EST KNEE 1 OR 2 VIEWS ??04/11/2014 5:59 PM Clinical History/Comments: Osteoarthrosis right knee s/p total right knee arthroplasty, routine post op for no count r/o foreign body, assess hardware Findings: Two views of the right knee show recent total knee arthroplasty in good alignment with expected postsurgical changes. ??No retained instruments or sponges are identified. Procedure Note 04/11/2014 KNEE 1 OR 2 VIEWS 04/11/2014 5:59 PM Clinical History/Comments: Osteoarthrosis right knee s/p total right knee arthroplasty, routine post op for no count r/o foreign body, assess hardware Findings: Two views of the right knee show recent total knee arthroplasty in good alignment with expected postsurgical changes. No retained instruments or sponges are identified. Tio Keating MD, MSc [facility] IMG DIAG NOSTIC IMAGING ORDERABLES * ANESTHESIA NERVE BLOCK FEMORAL (04/11/2014 11:20 EST) Anatomical Region Laterality Modality Other 04/11/2014 11:2 0 EST Narrative 04/11/2014 11:20 EST Non Reportable Exam Procedure Note 04/12/2014 Non Reportable Exam Heike Deluna MD IMG US ORDERABLE S * ORDERS - SCANNED (04/06/2014 11:17 EST) 04/06/2014 11:1 7 EST Scan 2 [employer] ADMISSION ORDERABLE S * ECG REPORT - SCANNED (04/06/2014 9:07 EST) 04/06/2014 9:07 EST Scan 2 [employer] PROCEDURE/MINOR JACKIE GICAL ORDERABLES * ECG REPORT - SCANNED (04/04/2014 15:18 EST) 04/04/2014 15:1 8 EST Scan 2 [employer] PROCEDURE/MINOR JACKIE GICAL ORDERABLES documented in this encounter Visit Diagnoses Diagnosis Osteoarthritis of right knee- Primary Osteoarthrosis, unspecified whether generalized or localized, lower leg Pain in joint, lower leg Localized osteoarthrosis not specified whether primary or secondary, lower leg Osteoarthritis of right knee Osteoarthrosis, unspecified whether generalized or localized, lower leg Localized osteoarthrosis not specified whether primary or secondary, lower leg Pain in joint, lower leg Obstructive sleep apnea Obstructive sleep apnea (adult) (pediatric) documented in this encounter Administered Medications Inactive Administered Medications - up to 3 most recent administrations Medication Order MAR Action Action Date Dose Rate Site acetaminophen (TYLENOL) tablet 1,000 mg 1,000 mg, oral, PRE-OP ONCE, 1 dose, On Wed04/11/14 at 1230, Routine, Pre-Op DOS Rx Approved Given 04/11/2014 12:44 EST 1,000 mg acetaminophen (TYLENOL) tablet 650 mg 650 mg, oral, EVERY 6 HOURS, First dose on Wed04/12/14 at 0000, Until Discontinued, Routine, On Unit Given 04/14/2014 12:50 EST 650 mg Given 04/14/2014 6:50 EST 650 mg Given 04/14/2014 0:34 EST 650 mg ascorbic acid (VITAMIN C) tablet 500 mg 500 mg, oral, AT BEDTIME, First dose on Wed04/11/14 at 2215, Until Discontinued, Routine, On Unit Given 04/13/2014 21:47 EST 500 mg Given 04/12/2014 20:32 EST 500 mg atenolol (TENORMIN) tablet 50 mg 50 mg, oral, DAILY, First dose on Wed04/12/14 at 0900, Until Discontinued, Routine Given 04/14/2014 9:25 EST 50 mg Given 04/13/2014 8:45 EST 50 mg Given 04/12/2014 8:11 EST 50 mg ceFAZolin (ANCEF) 2,000 mg in sodium chloride 0.9% 50 mL IVPB 2,000 mg, intravenous, Administer over 30 Minutes, NOW X1, 1 dose, On Wed04/11/14 at 1800, Routine, Recovery (only) Given 04/11/2014 19:05 EST 2,000 mg ceFAZolin (ANCEF) 2,000 mg in sodium chloride 0.9% 50 mL IVPB 2,000 mg, intravenous, Administer over 30 Minutes, EVERY 8 HOURS, 2 doses, First dose on Kanwal 04/12/14 at 0300, Last dose on Wed04/12/14 at 1100, Routine, On Unit Given 04/12/2014 11:02 EST 2,000 mg Given 04/12/2014 3:41 EST 2,000 mg ceFAZolin (ANCEF) syringe 2 g 2 g, intravenous, Administer over 10 Minutes, PRE-OP ONCE, 1 dose, On Wed04/11/14 at 1230, Routine, Pre-Op DOS Rx Approved Given by Other 04/11/2014 15:12 EST 2 g celecoxib (CELEBREX) capsule 200 mg 200 mg, oral, PRE-OP ONCE, 1 dose, On Wed04/11/14 at 1230, Routine, Pre-Op DOS Rx Approved Given 04/11/2014 12:44 EST 200 mg Cholecalciferol (Vitamin D3) tablet 400 Units 400 Units, oral, AT BEDTIME, First dose on Wed04/11/14 at 2215, Until Discontinued, Routine, On Unit Given 04/13/2014 21:48 EST 400 Units Given 04/12/2014 20:32 EST 400 Units clonazePAM (KLONOPIN) tablet 1 mg 1 mg, oral, 3 TIMES DAILY, First dose on Wed04/11/14 at 2215, Until Discontinued, Routine Given 04/13/2014 8:43 EST 1 mg Given 04/12/2014 20:31 EST 1 mg Given 04/11/2014 22:59 EST 1 mg dalteparin (FRAGMIN) 2,500 anti-Xa unit/0.2 mL injection 2,500 Units 2,500 Units, subcutaneous, DAILY, 1 dose, First dose on Wed04/12/14 at 0900, Routine, On Unit Given 04/12/2014 8:52 EST 2,500 Units dalteparin (FRAGMIN) 5,000 anti-Xa unit/0.2 mL injection 5,000 Units 5,000 Units, subcutaneous, DAILY, 9 doses, First dose on Wed04/13/14 at 0900, Last dose on Wed04/21/14 at 0900, Routine, On Unit Given 04/14/2014 9:30 EST 5,000 Units Given 04/13/2014 8:46 EST 5,000 Units dexaMETHasone (DECADRON) injection 8 mg 8 mg, intravenous, PRE-OP ONCE, 1 dose, On Wed04/11/14 at 1230, Routine, Pre-Op DOS Rx Approved Given 04/11/2014 12:46 EST 8 mg dextrose 5 %-0.9 % sodium chloride infusion at 100 mL/hr, intravenous, CONTINUOUS, Starting on Wed04/11/14 at 1815, Until Wed04/14/14 at 1532, Routine, On Unit Rate Documented 04/12/2014 6:20 EST 100 mL/hr Rate Documented 04/11/2014 22:09 EST 100 mL/hr Rate Documented 04/11/2014 21:00 EST 100 mL/hr diphenhydrAMINE (BENADRYL) elixir 12.5-25 mg 12.5-25 mg, oral, EVERY 6 HOURS PRN, Starting on Wed04/11/14 at 2154, Until Wed04/14/14 at 1532, Itching, Routine, On Unit Given 04/14/2014 3:41 EST 25 mg docusate sodium (COLACE) capsule 200 mg 200 mg, oral, 2 TIMES DAILY, First dose on Wed04/11/14 at 2215, Until Discontinued, Routine, On Unit Given 04/14/2014 9:25 EST 200 mg Given 04/13/2014 21:47 EST 200 mg Given 04/13/2014 8:44 EST 200 mg lactated ringers (LR) infusion at 25 mL/hr, intravenous, CONTINUOUS, Starting on Wed04/11/14 at 1230, Until Wed04/11/14 at 1745, Routine, Pre-Op DOS Rx Approved New Bag 04/11/2014 11:55 EST 2 5 mL/hr lactated ringers (LR) infusion at 75 mL/hr, intravenous, CONTINUOUS, Starting on Wed04/11/14 at 1800, Until Wed04/11/14 at 2147, Routine, Recovery (only) Rate Documented 04/11/2014 21:00 EST 75 mL /hr Rate Documented 04/11/2014 18:05 EST 75 mL/hr lamoTRIgine (LAMICTAL) tablet 50 mg 50 mg, oral, 2 TIMES DAILY, First dose on Wed04/11/14 at 2215, Until Discontinued, Routine Given 04/14/2014 9:25 EST 50 mg Given 04/13/2014 21:48 EST 100 mg Given 04/13/2014 8:44 EST 50 mg methocarbamol (ROBAXIN) tablet 500-1,000 mg 500-1,000 mg, oral, EVERY 6 HOURS PRN, Starting on Wed04/11/14 at 1751, Until 04/14/14 at 1532, muscle spasms, Routine, On Unit Given 04/14/2014 3:41 EST 1,000 mg Given 04/13/2014 21:46 EST 1,000 mg Given 04/13/2014 10:58 EST 1,000 mg mometasone-formoterol (DULERA) 200-5 mcg/actuation inhaler 2 Puff 2 Puff, inhalation, 2 TIMES DAILY, First dose on Wed04/11/14 at 2215, Until Discontinued Given 04/13/2014 21:46 EST 2 P uffs Given 04/13/2014 8:40 EST 2 Puffs Given 04/12/2014 20:30 EST 2 Puffs Multivitamins with Minerals tablet 1 Tab 1 Tablet, oral, AT BEDTIME, First dose on Wed04/11/14 at 2215, Until Discontinued, Routine, On Unit Given 04/12/2014 20:32 EST 1 Tablet naproxen (NAPROSYN) tablet 500 mg 500 mg, oral, 2 TIMES DAILY WITH BREAKFAST & DINNER, First dose on Wed04/12/14 at 0800, Until Discontinued, Routine, On Unit Given 04/14/2014 9:26 EST 500 mg Given 04/13/2014 18:15 EST 250 mg Given 04/13/2014 8:46 EST 500 mg oxyCODONE (OXYCONTIN) CR tablet 10 mg 10 mg, oral, PRE-OP ONCE, 1 dose, On Wed04/11/14 at 1230, Routine, Pre-Op DOS Rx Approved Given 04/11/2014 12:44 EST 10 mg oxyCODONE (OXYCONTIN) CR tablet 10 mg 10 mg, oral, EVERY 12 HOURS, First dose on Wed04/11/14 at 2215, Until Discontinued, Routine, On Unit Given 04/12/2014 8:08 EST 10 mg Given 04/11/2014 22:59 EST 10 mg oxyCODONE (ROXICODONE) immediate release tablet 5-20 mg 5-20 mg, oral, EVERY 3 HOURS PRN, Starting on Wed04/11/14 at 1751, Until 04/14/14 at 1532, Pain, Routine, On Unit Given 04/14/2014 12:50 EST 20 mg Given 04/14/2014 9:26 EST 20 mg Given 04/14/2014 6:50 EST 20 mg pantoprazole (PROTONIX) tablet 40 mg 40 mg, oral, DAILY, 30 doses, First dose on Wed04/12/14 at 1330, Last dose on Wed05/11/14 at 0900, Routine Given 04/14/2014 9:26 EST 40 mg Given 04/13/2014 8:45 EST 40 mg Given 04/12/2014 14:52 EST 40 mg PEG 3350-Electrolytes (MIRALAX) packet 17 g 17 g, oral, DAILY, First dose on Wed04/12/14 at 0900, Until Discontinued, Routine, On Unit Given 04/14/2014 9:30 EST 17 g Given 04/13/2014 8:46 EST 17 g Given 04/12/2014 8:08 EST 17 g povidone-iodine solution 5% (Skin and Nasal Antiseptic) 1 Kit 1 Kit, nasal, Once (Without Time Specified), 1 dose, Starting on Wed04/11/14 at 1202, Until Wed04/11/14 at 1246, Routine, Pre-Op DOS Rx Approved Given 04/11/2014 12:46 EST 1 Kit ropivacaine 0.1 % nerve block infusion 10 mL/hr, femoral nerve, CONTINUOUS, Starting on Wed04/11/14 at 1145, Until 04/14/14 at 1532, Routine New Bag 04/12/2014 16:35 EST 10 mL/hr 10 mL/hr Rate Documented 04/12/2014 6:20 EST 10 mL/hr 10 mL/hr Rate Documented 04/11/2014 22:09 EST 10 mL/hr 10 mL/hr traMADol (ULTRAM) tablet 50-100 mg 50-100 mg, oral, EVERY 6 HOURS, First dose on Wed15 at 0000, Until Discontinued, Routine, On Unit Given 04/14/2014 12:50 EST 100 mg Given 04/14/2014 6:49 EST 100 mg Given 04/14/2014 0:34 EST 100 mg tranexamic acid (CYKLOKAPRON) injection 1,000 mg 1,000 mg (1 g), intravenous, INTRA-OP ONCE, 1 dose, On Wed04/11/14 at 1230, Routine, Pre-Op DOS Rx Approved Given 04/11/2014 17:45 EST 1,000 mg tranexamic acid (CYKLOKAPRON) injection 1,000 mg 1,000 mg (1 g), intravenous, INTRA-OP ONCE, 1 dose, On Wed04/11/14 at 1230, Routine, Pre-Op DOS Rx Approved Given by Other 04/11/2014 15:33 EST 1,000 mg zinc sulfate (ZINCATE) capsule 220 mg 220 mg, oral, AT BEDTIME, First dose on Wed04/11/14 at 2215, Until Discontinued, Routine, On Unit Given 04/13/2014 21:48 EST 220 mg Given 04/12/2014 20:31 EST 220 mg zolpidem (AMBIEN) tablet 10 mg 10 mg, oral, DAILY, First dose on Wed04/11/14 at 2215, Until Discontinued, Routine Given 04/13/2014 21:48 EST 10 mg Given 04/12/2014 20:31 EST 10 mg Given 04/11/2014 22:58 EST 10 mg documented in this encounter Discontinued Medications Medication Sig Discontinue Reason Start Date End Da te furosemide (LASIX) 20 mg tablet Take 20 mg by mouth daily. 04/04/2014 documented as of this encounter Historical Medications * This list may reflect changes made after this encounter. Medication Sig Dispensed Refills Start Date End Date promethazine (PHENERGAN) 25 mg tablet Take 25 mg by mouth every 6 hours as needed for Nausea. sumatriptan (IMITREX) 6 mg/0.5 mL injection Inject 6 mg into the skin. zolpidem (AMBIEN) 10 mg tablet Take 10 mg by mouth daily. added in this encounter Active and Recently Administered Medications Times are shown in EST. Scheduled Medication Order 04/12/2014 04/13/2014 04/14/2014 acetaminophen (TYLENOL) tablet 650 mg (CANCELED) 650 mg, oral, EVERY 6 HOURS, First dose on Kanwal 04/12/14 at 0000, Until Discontinued, Routine, On Unit 0619 (Given - Provider: Farzana Dave RN)1102 (Given - Provider: Cassy Yoo RN)1821 (Given - Provider: Cassy Yoo RN) 0047 (Given - Provider: Nikia Mclean RN)0626 (Given - Provider: Nikia Mclean, ESTEVAN)1225 (Given - Provider: Radha Gallagher, ESTEVAN)1815 (Given - Provider: Radha Gallagher, ESTEVAN) 0034 (Given - Provider: Nikia Mclean RN)0650 (Given - Provider: Nikia Mclean, ESTEVAN)1250 (Given - Provider: Watson Khan) ascorbic acid (VITAMIN C) tablet 500 mg (CANCELED) 500 mg, oral, AT BEDTIME, First dose on Wed04/11/14 at 2215, Until Discontinued, Routine, On Unit 2031 (Given - Provider: Lolly Martinez RN) 214 (Given - Provider: Nikia Mclean RN) atenolol (TENORMIN) tablet 50 mg (CANCELED) 50 mg, oral, DAILY, First dose on Kanwal 04/12/14 at 0900, Until Discontinued, Routine 0811 (Given - Provider: Cassy Yoo RN) 0845 (Given - Provider: Susi Cevallos) 0925 (Given - Provider: Watson Khan) ceFAZolin (ANCEF) 2,000 mg in sodium chloride 0.9% 50 mL IVPB (COMPLETED) 2,000 mg, intravenous, Administer over 30 Minutes, EVERY 8 HOURS, 2 doses, First dose on Kanwal 04/12/14 at 0300, Last dose on Wed04/12/14 at 1100, Routine, On Unit 0341 (Given - Provider: Farzana Dave RN)1102 (Given - Provider: Cassy Yoo RN) Cholecalciferol (Vitamin D3) tablet 400 Units (CANCELED) 400 Units, oral, AT BEDTIME, First dose on Wed04/11/14 at 2215, Until Discontinued, Routine, On Unit 2031 (Given - Provider: Lolly Martinez RN) 214 (Given - Provider: Nikia Mclean RN) clonazePAM (KLONOPIN) tablet 1 mg (CANCELED) 1 mg, oral, 3 TIMES DAILY, First dose on Wed04/11/14 at 2215, Until Discontinued, Routine 0814 (Hold - Provider: Cassy Yoo RN - Reason: Patient/family refused)145 (Hold - Provider: Cassy Yoo RN - Reason: Patient/family refused)2030 (Given - Provider: Lolly Martinez RN) 08 (Given - Provider: Susi Cevallos) dalteparin (FRAGMIN) 2,500 anti-Xa unit/0.2 mL injection 2,500 Units (COMPLETED)(Linked Group 1) 2,500 Units, subcutaneous, DAILY, 1 dose, First dose on Kanwal 04/12/14 at 0900, Routine, On Unit 0852 (Given - Provider: Susi Cevallos) dalteparin (FRAGMIN) 5,000 anti-Xa unit/0.2 mL injection 5,000 Units(Linked Group 1) 5,000 Units, subcutaneous, DAILY, 9 doses, First dose on Wed04/13/14 at 0900, Last dose on Wed04/21/14 at 0900, Routine, On Unit 0846 (Given - Provider: Susi Cevallos) 09 (Given - Provider: Watson Khan) docusate sodium (COLACE) capsule 200 mg (CANCELED) 200 mg, oral, 2 TIMES DAILY, First dose on Wed04/11/14 at 2215, Until Discontinued, Routine, On Unit 0813 (Given - Provider: Cassy Yoo RN)2031 (Given - Provider: Lolly Martinez RN) 08 (Given - Provider: Susi Cevallos)2146 (Given - Provider: Nikia Mclean RN) 0925 (Given - Provider: Watson Khan) lamoTRIgine (LAMICTAL) tablet 50 mg (CANCELED) 50 mg, oral, 2 TIMES DAILY, First dose on Wed04/11/14 at 2215, Until Discontinued, Routine 0812 (Given - Provider: Cassy Yoo RN)2031 (Not Given - Provider: Lolly Martinez RN - Reason: Patient/family refused) 08 (Given - Provider: Susi Cevallos)214 (Given - Provider: Nikia Mclean RN) 0925 (Given - Provider: Watson Khan) mometasone-formoterol (DULERA) 200-5 mcg/actuation inhaler 2 Puff (CANCELED) 2 Puff, inhalation, 2 TIMES DAILY, First dose on Wed04/11/14 at 2215, Until Discontinued 0103 (Given - Provider: Farzana Dave RN)0815 (Given - Provider: Cassy Yoo RN)2030 (Given - Provider: Lolly Martinez RN) 0840 (Given - Provider: Susi Cevallos)214 (Given - Provider: Nikia Mclean RN) 0930 (Not Given - Provider: Watson Khan - Reason: Patient/family refused) Multivitamins with Minerals tablet 1 Tab (CANCELED) 1 Tablet, oral, AT BEDTIME, First dose on Wed04/11/14 at 2215, Until Discontinued, Routine, On Unit 2031 (Given - Provider: Lolly Martinez RN) 2148 (Not Given - Provider: Nikia Mclean RN - Reason: Patient/family refused) naproxen (NAPROSYN) tablet 500 mg (CANCELED) 500 mg, oral, 2 TIMES DAILY WITH BREAKFAST & DINNER, First dose on Wed04/12/14 at 0800, Until Discontinued, Routine, On Unit 0809 (Given - Provider: Cassy Yoo RN)1823 (Given - Provider: Cassy Yoo RN) 0846 (Given - Provider: Susi Cevallos)181 (Given - Provider: Radha Gallagher RN) 0926 (Given - Provider: Watson Khan) oxyCODONE (OXYCONTIN) CR tablet 10 mg (CANCELED) 10 mg, oral, EVERY 12 HOURS, First dose on Wed04/11/14 at 2215, Until Discontinued, Routine, On Unit 0808 (Given - Provider: Cassy Yoo RN) pantoprazole (PROTONIX) tablet 40 mg (CANCELED) 40 mg, oral, DAILY, 30 doses, First dose on Kanwal 04/12/14 at 1330, Last dose on Wed05/11/14 at 0900, Routine 1452 (Given - Provider: Cassy Yoo RN) 0845 (Given - Provider: Susi Cevallos) 0926 (Given - Provider: Watson Khan) PEG 3350-Electrolytes (MIRALAX) packet 17 g (CANCELED) 17 g, oral, DAILY, First dose on [place]wal 04/12/14 at 0900, Until Discontinued, Routine, On Unit 0808 (Given - Provider: Cassy Yoo RN) 0846 (Given - Provider: Susi Cevallos) 0930 (Given - Provider: Watson Khan) rivaroxaban (XARELTO) tablet 10 mg(Linked Group 1) 10 mg, oral, DAILY WITH DINNER, 18 doses, First dose on Wed04/22/14 at 1700, Last dose on Wed05/09/14 at 1700, Indication for rivaroxaban: DVT prophylaxis post-knee replacement, If indication is for treatment of VTE or PE, did you receive hematology approval? N/A, Routine, On Unit traMADol (ULTRAM) tablet 50-100 mg 50-100 mg, oral, EVERY 6 HOURS, First dose on [place]wal 04/12/14 at 0000, Until Discontinued, Routine, On Unit 0619 (Given - Provider: Farzana Dave RN)1102 (Given - Provider: Cassy Yoo RN)1821 (Given - Provider: Cassy Yoo RN) 0047 (Given - Provider: Nikia Mclean RN)0627 (Given - Provider: Nikia Mclean RN)1225 (Given - Provider: Radha Gallagher RN)1815 (Given - Provider: Rdaha Gallagher RN) 0034 (Given - Provider: Nikia Mclean RN)0649 (Given - Provider: Nikia Mclean RN)1250 (Given - Provider: Watson Khan) zinc sulfate (ZINCATE) capsule 220 mg (CANCELED) 220 mg, oral, AT BEDTIME, First dose on Wed04/11/14 at 2215, Until Discontinued, Routine, On Unit 2030 (Given - Provider: Lolly Martinez RN) 2148 (Given - Provider: Nikia Mclean RN) zolpidem (AMBIEN) tablet 10 mg (CANCELED) 10 mg, oral, DAILY, First dose on Wed04/11/14 at 2215, Until Discontinued, Routine 203 (Given - Provider: Lolly Martinez, RN) 2148 (Given - Provider: Nikia Mclean, ESTEVAN) Continuous Medication Order 04/12/2014 04/13/2014 04/14/2014 dextrose 5 %-0.9 % sodium chloride infusion (CANCELED) at 100 mL/hr, intravenous, CONTINUOUS, Starting on Wed04/11/14 at 1815, Until 04/14/14 at 1532, Routine, On Unit 0620 (Rate Documented - Provider: Farzana Dave RN)1240 (Completed - Provider: Cassy Yoo RN) ropivacaine 0.1 % nerve block infusion (CANCELED) 10 mL/hr, femoral nerve, CONTINUOUS, Starting on Wed04/11/14 at 1145, Until 04/14/14 at 1532, Routine 0620 (Rate Documented - Provider: Farzana Dave RN)1635 (New Bag - Provider: Cassy Yoo RN) 0620 (Completed - Provider: Nikia cMlean RN) PRN Medication Order 04/12/2014 04/13/2014 04/14/2014 diphenhydrAMINE (BENADRYL) elixir 12.5-25 mg (CANCELED) 12.5-25 mg, oral, EVERY 6 HOURS PRN, Starting on Wed04/11/14 at 2154, Until 04/14/14 at 1532, Itching, Routine, On Unit 0341 (Given - Provider: Nikia Mclean RN) methocarbamol (ROBAXIN) tablet 500-1,000 mg (CANCELED) 500-1,000 mg, oral, EVERY 6 HOURS PRN, Starting on Wed04/11/14 at 1751, Until 04/14/14 at 1532, muscle spasms, Routine, On Unit 0218 (Given - Provider: Farzana Dave RN)1448 (Given - Provider: Cassy Yoo RN)203 (Given - Provider: Lolly Martinez RN) 0451 (Given - Provider: Nikia Mclean RN)1058 (Given - Provider: Susi Cevallos)1225 (Canceled Entry - Provider: Radha Gallagher RN)2146 (Given - Provider: Nikia Mclean RN) 0341 (Given - Provider: Nikia Mclean RN) oxyCODONE (ROXICODONE) immediate release tablet 5-20 mg 5-20 mg, oral, EVERY 3 HOURS PRN, Starting on Wed04/11/14 at 1751, Until 04/14/14 at 1532, Pain, Routine, On Unit 0101 (Given - Provider: Farzana Dave RN)0154 (Given - Provider: Farzana Dave RN)0620 (Given - Provider: Farzana Dave RN)1109 (Given - Provider: Cassy Yoo RN)1449 (Given - Provider: Cassy Yoo RN)1821 (Given - Provider: Cassy Yoo RN)2144 (Given - Provider: Lolly Martinez RN) 0047 (Given - Provider: Nikia Mclean RN)0452 (Given - Provider: Nikia Mclean RN)0843 (Given - Provider: Susi Cevallos)1226 (Given - Provider: Radha Gallagher RN)1524 (Given - Provider: Radha Gallagher RN)1844 (Given - Provider: Radha Gallagher RN)2147 (Given - Provider: Nikia Mclean RN) 0034 (Given - Provider: Nikia Mclean RN)0341 (Given - Provider: Nikia Mclean RN)0650 (Given - Provider: Nikia Mclean RN)0926 (Given - Provider: Watson Khan)1250 (Given - Provider: Watson Khan) Linked Groups Order Group 1: dalteparin (FRAGMIN) 2,500 anti-Xa unit/0.2 mL injection 2,500 Units (COMPLETED)Jump to med 2,500 Units, subcutaneous, DAILY, 1 dose, First dose on Kanwal 04/12/14 at 0900, Routine, On Unit Followed by dalteparin (FRAGMIN) 5,000 anti-Xa unit/0.2 mL injection 5,000 UnitsJump to med 5,000 Units, subcutaneous, DAILY, 9 doses, First dose on 04/13/14 at 0900, Last dose on 04/21/14 at 0900, Routine, On Unit Followed by rivaroxaban (XARELTO) tablet 10 mgJump to med 10 mg, oral, DAILY WITH DINNER, 18 doses, First dose on Wed04/22/14 at 1700, Last dose on Wed05/09/14 at 1700, Indication for rivaroxaban: DVT prophylaxis post-knee replacement, If indication is for treatment of VTE or PE, did you receive hematology approval? N/A, Routine, On Unit documented in this encounter Orders Medications Ordered That Chuy ht Not Have Been Administered Count Last Ordered Date First Ordered Date clonazePAM (KLONOPIN) tablet 1 mg 1 015 albuterol inhaler 2 Puff 2 04/12/2014 atropine 0.1 mg/mL syringe 0.5 mg 1 015 bisacodyl (DULCOLAX) suppository 10 mg 1 calcium carbonate (TUMS) 200 mg calcium (500 mg) per chewable tablet tablet,chewable 1-2 Tab 1 04/11/2014 fentaNYL citrate (PF) 50 mcg /mL injection 25-100 mcg 1 04/11/2014 HYDROmorphone (PF) (DILAUDID ) 1 mg/mL injection 0.2-1 mg 1 04/11/2014 magnesium hydroxide (MILK OF MAGNESIA) 400 mg/5 mL suspension 30 mL 1 04/11/2014 midazolam (PF) (VERSED) 1 mg /mL injection 1 mg 04/11/2014 nalOXone (NARCAN) injection 0.2 mg 2014 ondansetron (PF) (ZOFRAN) injection 2 mg 1 04/11/2014 ondansetron (PF) (ZOFRAN) injection 2-4 mg 1 04/11/2014 PEG 3350-Electrolytes (ELIZABETH AX) packet 17 g 1 04/11/2014 prochlorperazine (COMPAZINE) tablet 10 mg 1 04/11/2014 prochlorperazine maleate (CO MPAZINE) 25 mg suppository 25 mg 1 04/11/2014 rivaroxaban (XARELTO) tablet 10 mg 1 2014 sodium phosphate (FLEET) enema 1 Enema 1 Diet Count Last Ordered Date First Orde red Date DISCHARGE DIET 1 04/14/2014 Nursing Count Last Ordered Date First Orde red Date ACTIVITY INSTRUCTIONS 1 04/14/2014 BATHING INSTRUCTIONS 04/14/2014 WOUND CARE INSTRUCTIONS 1 04/14/2014 APPLY WARMING BLANKET 1 04/11/2014 INSERT ANDUJAR CATHETER 1 04/11/2014 INSERT PERIPHERAL IV 1 04/11/2014 PLACE ANTI-EMBOLISM STOCKINGS 1 04/11/2014 PLACE SEQUENTIAL COMPRESSION DEVICE 1 04/11 VTE PHARMACOLOGIC PROPHYLAXI S CURRENTLY ORDERED OR ON ALTERNATIVE THER 1 04/11/2014 Admission Count Last Ordered Date First Orde red Date STATUS: INPATIENT DOSA/DOPA DAY OF SURGERY/PROCEDURE ADMISSION 2 04/11/2014 Transfer Count Last Ordered Date First Orde red Date NOTIFY PPS OF DISCHARGE COMPLETE 1 04/14/19 15 NOTIFY PPS PATIENT ARRIVAL IN PACU 1 2014 NOTIFY PPS PATIENT TRANSFERRED OUT OF PACU 1 04/11/2014 PPS NOTIFICATION OF PATIENT ARRIVAL ON UNIT 1 04/11/2014 Discharge Count Last Ordered Date First Orde red Date DISCHARGE PATIENT 1 04/14/2014 Legal Count Last Ordered Date First Orde red Date MISCELLANEOUS DISCHARGE INSTRUCTIONS 2 03/17 Consult to Social Work Count Last Ordered Date First Ordered Date CONSULT SOCIAL WORK 1 04/11/2014 documented in this encounter Care Teams Harness Cutter Relationship Specialty Start Date End Date Nadine Sadler FNP PCP - General 01/04/14 documented as of this encounter
--- OUTSIDE RECORDS SUMMARY | 2023-12-08 20:46 | XMS_ITS | Encounter Summary ---
[facility] [place] [address] Care Team Providers Care Lens Assistant Name Role Phone Rhonda Brady Primary Care Provider [phone] Reason for Referral * Consultation (Routine) - Closed Specialty Diagnoses / Procedures Referred By Vidal t Referred To Contact [facility] Diagnoses Other intervertebral disc displacement, lumbar region low back pain/ MRI 2020 in [facility] (faxed x1)/? pain mgmt options *advise we do not precribe or take over Sahara Kowalski MD [address] [place] [address] [place] [address] [facility] [place] [address] Referral ID Status Reason Start Date Expiration Date V isits Requested Visits Authorized [id number] Closed Consult, Test & Treat PCP Updated and/or Approved 10/26/2022 10/26/2023 1 1 Encounter Details Date Type Department Care Team (Latest Contact Info) Description 10/26/2022 Transcribe Orders eDH Incoming Referrals [phone] Sahara Kowalski MD [address] [place] [address] [address] [place], [place] [id number] Other intervertebral disc displacement, lumbar region Social History Tobacco Use Types Packs/Day Years Used Date Smoking Tobacco: Never Smokeless Tobacco: Never Sex and Gender Information Value Date Recorded Sex Assigned at Not on file Gender Identity Not on file Sexual Orientation Not on file documented as of this encounter Plan of Treatment Scheduled Referrals Name Type Priority Associated Diagnoses Orde r Schedule Referral to Spine Center Outpatient Referral Routine Other intervertebral disc displacement, lumbar region Ordered: 10/26/2022 documented as of this encounter Visit Diagnoses Diagnosis Other intervertebral disc displacement, lumbar region documented in this encounter Care Teams Lens Assistant Relationship Specialty Start Date End Date Rhonda Brady PA [address] [place] [address] PCP - General Family Medicine 10/26/22 documented as of this encounter
--- OUTSIDE RECORDS SUMMARY | 2023-12-08 20:46 | XMS_ITS | Encounter Summary ---
Author Organization [facility] Address [address] [place] [address] Care Team Providers Care Customer Experience Associate Name Role Phone Nadine Sadler VANESA Primary Care Provider + Encounter Details Date Type Department Care Team (Latest Contact Info) Description 04/04/2014 13:39 EST - 04/04/2014 23:59 EST Hospital Encounter [facility] [address] [place] [address] Unknown, MD Chantell Tio Keating MD MSc FRCSC [address] [place] [phone] Discharge Disposition: Auto Discharge Social History Tobacco Use Types Packs/Day Years Used Date Smoking Tobacco: Never Assessed Sex and Gender Information Value Date Recorded Sex Assigned at Not on file Gender Identity Not on file Sexual Orientation Not on file documented as of this encounter Discharge Diagnoses Diagnosis 715.36 LOC OSTEOARTH NOS-L/LEG[ICD-9-CM] 719.46 JOINT PAIN-L/LEG[ICD-9-CM] documented in this encounter Medications at Time of Discharge Medication Sig Dispensed Refills Start Date End Date albuterol 90 mcg/actuation inhalerIndications:ac cabazon asthma attack,chronic obstructive pulmonary disease Inhale 2 [...] 04/22/2014 05/12/2014 documented as of this encounter Discharge Disposition Disposition Code Departure Means Destination Auto Discharge Home documented in this encounter Plan of Treatment Not on file documented as of this encounter Procedures Procedure Name Priority Date/Time Associated Diagnosis Comments PREPARE RED BLOOD CELLS Routine 04/04/2014 15:06 EST TYPE AND SCREEN Routine 04/04/2014 15:06 EST URINE MICROSCOPIC Routine 04/04/2014 13: 45 EST documented in this encounter Results * TYPE AND SCREEN (04/04/2014 15:06 EST) ABO B [facility] Rh Factor Positive [facility] Antibody Screen Negative [facility] Comment:SPECIMEN EXPIRES: @2359 04/04/2014 15:0 6 EST Provider Unknown BLOOD BANK TESTS [facility] * PREPARE RED BLOOD CELLS (04/04/2014 15:06 EST) Product Code E0336 -1 RED BLOOD CELLS, Leukocytes Reduced [facility] Donor Number [id number] [facility] Unit ABO B [facility] Unit Rh POS [facility] Cross Match Interp Compatible [facility] Unit Status Released From Crossmatch [facility] 04/04/2014 15:0 6 EST Provider Unknown BLOOD BANK ORDERABLE S [facility] * (ABNORMAL) URINE MICROSCOPIC (04/04/2014 13:45 EST) WBC, UA None seen 0 - 5 /HPF 04/04/2014 16:11 [facility] RBC, UA less than 1 0 - 5 /HPF 04/04/2014 16:11 [facility] Squam Epithel, UA Frequent(A) None seen /HPF 04/04/2014 16:11 [facility] Renal Epithel, UA None seen None seen /HPF 04/04/2014 16:11 [facility] Bacteria, UA None seen None seen /HPF 04/04/2014 16:11 [facility] Crystals, UA None seen /HPF 04/04/2014 16:11 [facility] Hyaline Casts, UA None seen /LPF 04/04/2014 16:11 [facility] UA Comment Microscopic results 04/04/2014 16:11 [facility] Comment: are unreliable on urines unrefrig >2hrs or refrig >8hrs. Additional Findings Few transitional epithelial cells. 04/04/2014 16:11 EST [facility] URINE / Unknown 04/04/2014 1 3:45 EST 04/04/2014 15:19 EST Tio Keating MD MSc FRCSC URINALYS IS ORDERABLES [facility] [address] [place] [address] documented in this encounter Visit Diagnoses Not on filedocumented in this encounter Care Teams Customer Experience Associate Relationship Specialty Start Date End Date Nadine Sadler FNP PCP - General 01/04/14 documented as of this encounter
--- OUTSIDE RECORDS SUMMARY | 2023-12-08 20:46 | XMS_ITS | Encounter Summary ---
Author Organization [facility] [place] [address] Care Team Providers Care Make Up Artist Name Role Phone Summer Tamez MD Primary Care Provider [phone] Encounter Details Date Type Department Care Team (Late st Contact Info) Description 09/26/2014 [place] [address] Summer Tamez MD EMERGENCY DEPT [address] [place] [address] [place] [address] Social History Tobacco Use Types [...] FILM LIBRARY STORAGE ONLY MR SPINE Routine 09/26/2014 2:44 PM EDT documented in this encounter Results * Film Library- Storage only MR Spine (09/26/2014 2:44 PM EDT) Anatomical Region Laterality Modality Other 09/26/2014 2:44 PM EDT Narrative 09/27/2014 2:50 PM EDT This is a Non-reportable exam Procedure Note GRICELDA, UNSIGNED REPORT - 09/27/2014 This is a Non-reportable exam Summer Tamez MD IMG FILM LIBRARY O RDERABLES documented in this encounter Visit Diagnoses Not on filedocumented in this encounter Care Teams Make Up Artist Relationship Specialty Start Date End Date Summer Tamez MD EMERGENCY DEPT [address] [place] [address] PCP - General 02/04/10 01/17/20 documented as of this encounter
--- OUTSIDE RECORDS SUMMARY | 2023-12-08 20:46 | XMS_ITS | Encounter Summary ---
Author Organization [facility] Address [address] [place] [address] Care Team Providers Care Treatment Plant Operator Name Role Phone Nadine Sadler VANESA Primary Care Provider + Reason for Visit * Reason Onset Date Comments Follow-up 05/17/2014 Encounter Details Date Type Department Care Team (Late st Contact Info) Description 05/17/2014 Telephone [facility] Total Joint Program - [address] [place], [place] [phone] Leticia Gandhi, RN Follow-up Social History Tobacco Use Types Packs/Day Years [...] Miscellaneous Notes * Telephone Encounter - Leticia Gandhi, ESTEVAN - 05/17/2014 1029 EST CALLED PT TO SEE HOW er VISIT WENT. STATES PT DID NOT WANT TO GO . THEY HAVE BEEN ELEVATINGHIGHER, AND TODAY SWELLING LESS, PAIN LESS, DOES NOT COMPLAIN OF PAIN IN CALF. WILL GO TO pt TOMORROW. APPT MADE FOR NEXT Wednesday FOR PT TO BE REEVALUATED BY SAMANTHA AARON PER HIS REQUEST. PT VERBALIZES UNDERSTANDING AND WILL BRING HER. INSTRUCTED TO CALL BACK IF ANY NEW ISSUES ARISE. Leticia Gandhi RN documented in this encounter Plan of Treatment Not on file documented as of this encounter Visit Diagnoses Not on filedocumented in this encounter Care Teams Treatment Plant Operator Relationship Specialty Start Date End Date Nadine Sadler FNP PCP - General 01/04/14 documented as of this encounter
--- OUTSIDE RECORDS SUMMARY | 2023-12-08 20:46 | XMS_ITS | Encounter Summary ---
Author Organization [facility] Address [address] [place] [address] Care Team Providers Care Lube Technician Name Role Phone Nadine Sadler [facility] [employer] Primary Care Provider + Reason for Referral * PT/OT/ST (Routine) - Closed Specialty Diagnoses / Procedures Referred By Contac t Referred To Contact Diagnoses Knee pain Tio Keating MD MSc [address] [address] Referral ID Status Reason Start Date Expiration Date V isits Requested Visits Authorized [id number] Closed Specialty Services Required 05/04/2014 1 1 Question Answer Reason for Request: Right hip pain; s/p total hip replacement Surgery (and Date): 15 Comments Evaluate and treat - please follow [facility]'s post op protocol * Radiology Services (Routine) - Closed Specialty Diagnoses / Procedures Referred By Contac t Referred To Contact Diagnoses Knee pain Procedures KNEE 1 OR 2 VIEWS Tio Keating MD MSc [address] [address] Referral ID Status Reason Start Date Expiration Date Visits Re quested Visits Authorized [id number] Closed 05/04/2014 1 1 * Radiology Services (Routine) - Closed Specialty Diagnoses / Procedures Referred By Contac t Referred To Contact Diagnoses Knee pain Procedures KNEE 1 OR 2 VIEWS Tio Keating MD MSc [address] [address] Referral ID Status Reason Start Date Expiration Date Visits Re quested Visits Authorized [id number] Closed 05/04/2014 1 1 Encounter Details Date Type Department Care Team (Late st Contact Info) Description 05/04/2014 Orders Only [facility] Total Joint Program - [address] [address] Tio Keating MD MSc [address] [address] Knee pain (Primary Dx) Social History [...] Type Priority Associated Diagnoses Orde r Schedule AMB CONS/FOLLOW UP PHYSICAL THERAPY Outpatient Referral Routine Knee pain Ordered: 05/04/2014 documented as of this encounter Procedures Procedure Name Priority Date/Time Associated Diagnosis Comments KNEE 1 OR 2 VIEWS Routine 05/08/2014 10: 57 EST Knee pain KNEE 1 OR 2 VIEWS Routine 05/08/2014 10: 57 EST Knee pain documented in this encounter Results * KNEE 1 OR 2 VIEWS (05/08/2014 10:57 EST) Anatomical Region Laterality Modality Other 05/08/2014 10:5 7 EST 05/11/2014 16:45 EST Narrative 05/11/2014 16:45 EST KNEE 1 OR 2 VIEWS, KNEE 1 OR 2 VIEWS ??05/08/2014 10:57 AM Signs and Symptoms/Comments: 719.46-Pain in joint, lower qjk-OAZ-5-CM; right total knee replacement due to osteoarthritis - left for comparison Comparison: Right knee radiographs April 11, 2014 and AP radiograph of the left knee February 13, 2014. Findings: Right knee upright AP and lateral views are obtained and compared with the prior study. Previously described total knee arthroplasty. The femoral and tibial prosthetic components appear unchanged in position, with no acute periprosthetic fracture nor hardware failure or loosening evident. Mild degenerative changes are again noted on the patella. A small to moderate size suprapatellar knee joint effusion is again demonstrated. Left knee upright single AP view is obtained. There are mild degenerative changes evident in the medial and lateral femorotibial compartments. There is minimal spurring of the tibial spines. The left knee is incompletely evaluated without the benefit of a lateral view. Also, the lack of a lateral view does not allow for assessment of patellofemoral compartment structures, nor for detection of a possible knee joint effusion. Procedure Note Pierre Bee MD - 05/11/2014 KNEE 1 OR 2 VIEWS, KNEE 1 OR 2 VIEWS 05/08/2014 10:57 AM Signs and Symptoms/Comments: 719.46-Pain in joint, lower bts-UOZ-6-CM; right total knee replacement due to osteoarthritis - left for comparison Comparison: Right knee radiographs April 11, 2014 and AP radiograph of the left knee February 13, 2014. Findings: Right knee upright AP and lateral views are obtained and compared with the prior study. Previously described total knee arthroplasty. The femoral and tibial prosthetic components appear unchanged in position, with no acute periprosthetic fracture nor hardware failure or loosening evident. Mild degenerative changes are again noted on the patella. A small to moderate size suprapatellar knee joint effusion is again demonstrated. Left knee upright single AP view is obtained. There are mild degenerative changes evident in the medial and lateral femorotibial compartments. There is minimal spurring of the tibial spines. The left knee is incompletely evaluated without the benefit of a lateral view. Also, the lack of a lateral view does not allow for assessment of patellofemoral compartment structures, nor for detection of a possible knee joint effusion. Tio Keating MD MSc FRCSC IMG DIAG NOSTIC IMAGING ORDERABLES * KNEE 1 OR 2 VIEWS (05/08/2014 10:57 EST) Anatomical Region Laterality Modality Other 05/08/2014 10:5 7 EST 05/11/2014 16:45 EST Narrative 05/11/2014 16:45 EST KNEE 1 OR 2 VIEWS, KNEE 1 OR 2 VIEWS ??05/08/2014 10:57 AM Signs and Symptoms/Comments: 719.46-Pain in joint, lower oyc-APY-7-CM; right total knee replacement due to osteoarthritis - left for comparison Comparison: Right knee radiographs April 11, 2014 and AP radiograph of the left knee February 13, 2014. Findings: Right knee upright AP and lateral views are obtained and compared with the prior study. Previously described total knee arthroplasty. The femoral and tibial prosthetic components appear unchanged in position, with no acute periprosthetic fracture nor hardware failure or loosening evident. Mild degenerative changes are again noted on the patella. A small to moderate size suprapatellar knee joint effusion is again demonstrated. Left knee upright single AP view is obtained. There are mild degenerative changes evident in the medial and lateral femorotibial compartments. There is minimal spurring of the tibial spines. The left knee is incompletely evaluated without the benefit of a lateral view. Also, the lack of a lateral view does not allow for assessment of patellofemoral compartment structures, nor for detection of a possible knee joint effusion. Procedure Note Pierre Bee MD - 05/11/2014 KNEE 1 OR 2 VIEWS, KNEE 1 OR 2 VIEWS 05/08/2014 10:57 AM Signs and Symptoms/Comments: 719.46-Pain in joint, lower dji-DPL-0-CM; right total knee replacement due to osteoarthritis - left for comparison Comparison: Right knee radiographs April 11, 2014 and AP radiograph of the left knee February 13, 2014. Findings: Right knee upright AP and lateral views are obtained and compared with the prior study. Previously described total knee arthroplasty. The femoral and tibial prosthetic components appear unchanged in position, with no acute periprosthetic fracture nor hardware failure or loosening evident. Mild degenerative changes are again noted on the patella. A small to moderate size suprapatellar knee joint effusion is again demonstrated. Left knee upright single AP view is obtained. There are mild degenerative changes evident in the medial and lateral femorotibial compartments. There is minimal spurring of the tibial spines. The left knee is incompletely evaluated without the benefit of a lateral view. Also, the lack of a lateral view does not allow for assessment of patellofemoral compartment structures, nor for detection of a possible knee joint effusion. Tio Keating MD MSc FRCSC IMG DIAG NOSTIC IMAGING ORDERABLES documented in this encounter Visit Diagnoses Diagnosis Knee pain- Primary Pain in joint, lower leg documented in this encounter Care Teams Lube Technician Relationship Specialty Start Date End Date Nadine Sadler FNP PCP - General 01/04/14 documented as of this encounter
--- OUTSIDE RECORDS SUMMARY | 2023-12-08 20:46 | XMS_ITS | Clinical Summary ---
Author Organization [facility] Address [facility] [address] Care Team Providers Care Cardiology Technician Name Role Phone Rhonda Brady Primary Care Provider [phone] Allergies Active Allergy Reactions Criticality Noted Date Comments Aspirin Other (See Comments) 02/13/2014 Dizziness and elevated BP per pt Gabapentin Medium 02/13/2014 Burning in hands and feet Topiramate Other (See Comments) Medium 02/13/2014 Burning in hands and feet Medications Medication Sig Dispensed Refills Start Date End Date Status oxycodone HCl,terephth/aspir in (OXYCODONE IUS-SDGVOLWPR-ZSD ORAL) Take 10 mg by mouth 4 times daily as needed. Activ e acetaminophen (Tylenol Extra Strength) 500 mg Tablet Take 1,500 mg by mouth 3 times daily. 04/23/2019 Active albuteroL (ProAir HFA) 90 mcg/actuation HFA Aerosol Inhaler Inhale 2 puffs every 4 hours by inhalation route for 30 days. Active amoxicillin (Amoxil) 500 mg Capsule Take 4 capsules by mouth,one hour prior to all dental procedures 07/12/2014 Active benzonatate (Tessalon Perles) 100 mg Capsule as needed. 04/23/2019 Active cetirizine (ZyrTEC) 10 mg Tablet Take 1 tablet every day by oral route for 90 days. Active clonazePAM (KlonoPIN) 1 mg Tablet Take 1 tablet every 6-8 hours by oral route as needed for 30 days. 09/19/2019 Active fluticasone propion-salmeteroL (ADVAIR) 500-50 mcg/dose Disk with Device Inhale 1 puff into the lungs Twice daily. Active lamoTRIgine (LaMICtal) 25 mg Tablet Take 75 mg by mouth daily. Active loratadine (Claritin) 10 mg Tablet TAKE ONE TABLET BY MOUTH EVERY DAY 08/14/2019 Active naloxone (Narcan) 4 mg/actuation [place], Non-Aerosol Take 1 spray as needed by nasal route. 10/18/2018 Active oxyCODONE (ROXICODONE) 10 mg Tablet Take 1 tablet every 4-6 hours by oral route as needed for 28 days. 09/19/2019 Active Imitrex STATdose Pen 6 mg/0.5 mL Pen Injector INJECT SUBCUTANEOUSLY NEEDED FOR HEADACHE MAY REPEAT DOSE IN 2 HOURS NEEDED MAX OF 2 DOSES IN 24 HOURS 09/21/2019 Active zolpidem (AMBIEN) 10 mg Tablet TAKE ONE TABLET BY MOUTH AT BEDTIME NEEDED 11/08/2019 Active multivitamin (THERAGRAN) Tablet Take 1 tablet by mouth daily. Active ascorbic acid, Vitamin C, (Vitamin C) 500 mg Tablet Take 500 mg by mouth daily. Active Active Problems Problem Noted Date Diagnosed Date Lumbar spondylosis 01/18/2020 Bipolar disorder 01/18/2020 COPD (chronic obstructive pulmonary disease) 07/2019 Disorder of sacrum 01/18/2020 Overview (01/18/2020): Added automatically from request for surgery [id number] Family History Medical History Relation Comments No Known Problems Father Hypertension Mother Relation Status Comments Father Mother Social History Tobacco Use Types Packs/Day Years [...] Mass Index 28.13 03/02/2023 3:12 PM EST Plan of Treatment Health Maintenance Due Date Last Done Comments CT Colonography 1954 Colonoscopy 1954 Colorectal Cancer Screening 1954 FIT DNA 1954 FIT 1954 Sigmoidoscopy (10 year) with FIT yearly 1954 Sigmoidoscopy 1954 Pneumoccocal Vaccine: 65+ (1 of 2 - PCV) 1960 Hepatitis C Screening 1972 Tdap adult (Retired) 1973 Tetanus vaccine (Retired) 1973 Breast Cancer Share Decision Needed 1994 Breast Cancer screening 1994 Diabetes Screening (HgbA1C or Glucose) 1994 Zoster vaccine (1 of 2) 2004 Advance Directive 2009 Bone Density Scan 09/25/2019 Covid-19 Vaccine (3 - season) 2023, 09/30/2020 Influenza (Flu) vaccine (1 o f 1 - Influenza standard series) 11/14/2023 Care Teams Cardiology Technician Relationship Specialty Start Date End Date Rhonda Brady PA [address] [place] [address] PCP - General Family Medicine 10/26/22
--- OUTSIDE RECORDS SUMMARY | 2023-12-08 20:46 | XMS_ITS | Encounter Summary ---
Author Organization [facility] Address [address] [place] [address] Care Team Providers Care Blade Operator Name Role Phone Nadine Sadler VANESA Primary Care Provider + Encounter Details Date Type Department Care Team (Late st Contact Info) Description 03/05/2021 Lab Requisition [facility] Pathology & Laboratory Medicine - [facility] [address] [place] [address] Outr Resulting Lab, Provider Social History Tobacco [...] Priority Date/Time Associated Diagnosis Comments ZZCOVID-19 TEST [facility] PCR Today 03/05/2021 17:12 EST COVID-19 TESTING Routine 03/05/2021 17:1 2 EST documented in this encounter Results * COVID-19 TEST [facility] PCR (03/05/2021 17:12 EST) Swab 03/05/2021 17:1 2 EST 03/06/2021 21:36 EST Provider Outr Resulting Lab MICROBIOLOGY - GENERAL ORDERABLES [facility] [address] [place] [address] * COVID-19 TESTING (03/05/2021 17:12 EST) COVID-19 rt-PCR Result Negative Negative 03/07/2021 13:40 EST [facility] Comment: This test has not [...] clinical observations, patient history, and epidemiological information. Performed on the iPointer Fusion instrument Performing Lab [place] [facility] 03/07/2021 13:40 EST [facility] Swab 03/05/2021 17:1 2 EST 03/06/2021 21:36 EST Provider Outr Resulting Lab MICROBIOLOGY - GENERAL ORDERABLES [facility] [address] [place] [address] documented in this encounter Visit Diagnoses Not on filedocumented in this encounter Care Teams Blade Operator Relationship Specialty Start Date End Date Nadine Sadler FNP PCP - General 01/04/14 documented as of this encounter
--- OUTSIDE RECORDS SUMMARY | 2023-12-08 20:46 | XMS_ITS | Encounter Summary ---
Author Organization [facility] Address [address] [place] [address] Care Team Providers Care Kiln Maintenance Name Role Phone Nadine Sadler SPENT GRAIN DRYER Primary Care Provider + Reason for Referral * Radiology Services (Routine) - Closed Specialty Diagnoses / Procedures Referred By Vidal beard Referred To Contact Diagnoses Knee pain Procedures KNEE 1 OR 2 VIEWS Tio eKating MD MSc [address] [address] Referral ID Status Reason Start Date Expiration Date Visits Re quested Visits Authorized [id number] Closed 02/13/2014 1 1 * Radiology Services (Routine) - Closed Specialty Diagnoses / Procedures Referred By Vidal beard Referred To Contact Diagnoses Knee pain Procedures KNEE 1 OR 2 VIEWS Tio Keating MD MSc [facility] [address] [place] [phone] Referral ID Status Reason Start Date Expiration Date Visits Re quested Visits Authorized [id number] Closed 02/13/2014 1 1 Encounter Details Date Type Department Care Team (Late st Contact Info) Description 02/12/2014 Orders Only [facility] Total Joint Program - [address] [address] Tio Keating MD MSc [facility] [address] [place] [phone] Knee pain (Primary Dx) Social History [...] Comments KNEE 1 OR 2 VIEWS Routine 02/13/2014 13: 03 EST Knee pain KNEE 1 OR 2 VIEWS Routine 02/13/2014 13: 03 EST Knee pain documented in this encounter Results * KNEE 1 OR 2 VIEWS (02/13/2014 13:03 EST) Anatomical Region Laterality Modality Other 02/13/2014 13:0 3 EST 02/16/2014 8:46 EST Narrative 02/16/2014 8:46 EST KNEE 1 OR 2 VIEWS, KNEE 1 OR 2 VIEWS ??02/13/2014 1:03 PM Signs and Symptoms/Comments: ?? 719.46-Pain in joint, lower pqx-QVM-2-CM; right knee pain Comparison: None. Findings: Right knee: AP and lateral views of the right knee show no evidence of acute fracture, no sizable right knee joint effusion is identified either. Moderately severe joint space narrowing seen in the medial femorotibial compartment. Milder degenerative changes seen in the lateral femorotibial and patellofemoral compartments. Soft tissues are grossly unremarkable. Left knee: AP weightbearing view of the left knee shows no acute osseous abnormality, the view limits assessment for left knee joint effusion and the evaluation of the patellofemoral compartment. Minimal degenerative changes seen in the left knee. Soft tissues are grossly unremarkable. Procedure Note 02/16/2014 KNEE 1 OR 2 VIEWS, KNEE 1 OR 2 VIEWS 02/13/2014 1:03 PM Signs and Symptoms/Comments: 719.46-Pain in joint, lower zow-NYQ-6-CM; right knee pain Comparison: None. Findings: Right knee: AP and lateral views of the right knee show no evidence of acute fracture, no sizable right knee joint effusion is identified either. Moderately severe joint space narrowing seen in the medial femorotibial compartment. Milder degenerative changes seen in the lateral femorotibial and patellofemoral compartments. Soft tissues are grossly unremarkable. Left knee: AP weightbearing view of the left knee shows no acute osseous abnormality, the view limits assessment for left knee joint effusion and the evaluation of the patellofemoral compartment. Minimal degenerative changes seen in the left knee. Soft tissues are grossly unremarkable. Tio Keating MD MSc [facility]CSC IMG DIAG NOSTIC IMAGING ORDERABLES * KNEE 1 OR 2 VIEWS (02/13/2014 13:03 EST) Anatomical Region Laterality Modality Other 02/13/2014 13:0 3 EST 02/16/2014 8:46 EST Narrative 02/16/2014 8:46 EST KNEE 1 OR 2 VIEWS, KNEE 1 OR 2 VIEWS ??02/13/2014 1:03 PM Signs and Symptoms/Comments: ?? 719.46-Pain in joint, lower uoz-NGJ-3-CM; right knee pain Comparison: None. Findings: Right knee: AP and lateral views of the right knee show no evidence of acute fracture, no sizable right knee joint effusion is identified either. Moderately severe joint space narrowing seen in the medial femorotibial compartment. Milder degenerative changes seen in the lateral femorotibial and patellofemoral compartments. Soft tissues are grossly unremarkable. Left knee: AP weightbearing view of the left knee shows no acute osseous abnormality, the view limits assessment for left knee joint effusion and the evaluation of the patellofemoral compartment. Minimal degenerative changes seen in the left knee. Soft tissues are grossly unremarkable. Procedure Note 02/16/2014 KNEE 1 OR 2 VIEWS, KNEE 1 OR 2 VIEWS 02/13/2014 1:03 PM Signs and Symptoms/Comments: 719.46-Pain in joint, lower tau-TXH-0-CM; right knee pain Comparison: None. Findings: Right knee: AP and lateral views of the right knee show no evidence of acute fracture, no sizable right knee joint effusion is identified either. Moderately severe joint space narrowing seen in the medial femorotibial compartment. Milder degenerative changes seen in the lateral femorotibial and patellofemoral compartments. Soft tissues are grossly unremarkable. Left knee: AP weightbearing view of the left knee shows no acute osseous abnormality, the view limits assessment for left knee joint effusion and the evaluation of the patellofemoral compartment. Minimal degenerative changes seen in the left knee. Soft tissues are grossly unremarkable. Tio Keating MD MSc FRC IMG DIAG NOSTIC IMAGING ORDERABLES documented in this encounter Visit Diagnoses Diagnosis Knee pain- Primary Pain in joint, lower leg documented in this encounter Care Teams Kiln Maintenance Relationship Specialty Start Date End Date Nadine Sadler FNP PCP - General 01/04/14 documented as of this encounter
--- OUTSIDE RECORDS SUMMARY | 2023-12-08 20:46 | XMS_ITS | Encounter Summary ---
Author Organization [facility] [place] [address] Care Team Providers Care Talent Rep Name Role Phone Jacy Sadler APRN Primary Care Provider [phone]- [phone] Encounter Details Date Type Department Care Team (Late st Contact Info) Description 02/07/2020 Telephone [facility] [place] [place] [address] Jaylyn Alcantara RN Social History Tobacco Use Types Packs/Day Years Used Date Smoking Tobacco: Never Smokeless Tobacco: Never Sex and Gender Information Value Date Recorded Sex Assigned at Not on file Gender Identity Not on file Sexual Orientation Not on file documented as of this encounter Miscellaneous Notes * Telephone Encounter - Jaylyn Alcantara, RN - 02/07/2020 11:04 AM EST Dominique Gates :1955 Message left: I left a message on answering machine Ms. Gates at 11:04 AM regarding her upcoming Bilateral SI joint injection with Dr. Malissa Girard MD. Message included the followin. Patient instructed to arrive at 1115 (30 minutes prior to procedure start time) on 02/09/2020 (date of procedure) with their jitney driver. 2. Following instructions left in the message: - Bring Updated list of medications including dosage and reason for taking. - Call the Pain Clinic Nurse at for: ~Procedure instructions. ~If you are taking antibiotics. ~If you have any signs or symptoms of infection, cold or flu. ~If you have any skin breakdown (rashes, cysts, or abscess.) ~If you are taking anticoagulants / blood thinners (Plavix, Pletal, Lovenox, Coumadin, etc). ~If you had any steroid injections anywhere in your body within the last two weeks? Jaylyn Alcantara RN documented in this encounter Plan of Treatment Not on file documented as of this encounter Visit Diagnoses Not on filedocumented in this encounter Care Teams Talent Rep Relationship Specialty Start Date End Date Jacy Sadler APRN [address] [place] [phone] PCP - General Family Medicine 01/18/20 07/30/21 documented as of this encounter
--- OUTSIDE RECORDS SUMMARY | 2023-12-08 20:46 | XMS_ITS | Encounter Summary ---
Author Organization [facility] [place] [address] Care Team Providers Care Auto Washer Name Role Phone Summer Tamez MD Primary Care Provider [phone]- [phone] Encounter Details Date Type Department Care Team (Late st Contact Info) Description 05/23/2019 Ancillary Procedure Radiology at [address] [id number] Paula Domingo MD [address] [place] [address] [place] [address] Social History Tobacco Use Types Packs/Day Years [...] FILM LIBRARY STORAGE ONLY MR SPINE Routine 05/23/2019 12:00 AM EDT documented in this encounter Results * Film Library- Storage Only MR Spine (05/23/2019 12:00 AM EDT) Narrative RAD - 10/18/2019 10:59 AM EDT This exam is auto-finalizing. It's purpose is for storage only. Paula Domingo MD IMG FILM LIBRARY ORDERABLES [place], [place] documented in this encounter Visit Diagnoses Not on filedocumented in this encounter Care Teams Auto Washer Relationship Specialty Start Date End Date Summer Tamez MD EMERGENCY DEPT [address] [place] [address] PCP - General 02/04/10 01/17/20 documented as of this encounter
--- OUTSIDE RECORDS SUMMARY | 2023-12-08 20:46 | XMS_ITS | Encounter Summary ---
Author Organization [facility] Address [address] [place] [address] Care Team Providers Care Farmworker Brooder Farm Name Role Phone Nadine Sadler VANESA Primary Care Provider + Reason for Visit * Reason Comments Post-OP Follow Up s/p Right total knee replacement Encounter Details Date Type Department Care Team (Latest Contact Info) Description 05/22/2014 11:15 EDT Post-op Visit [facility] Total Joint Program - [address] [place] [address] Tio Keating MD MSc FRCSC [address] [place] [phone] S/P total knee arthroplasty (Primary Dx) Discharge Disposition: Auto Discharge Social History Tobacco [...] 04/12/2014 documented as of this encounter Discharge Diagnoses Diagnosis 715.96 OSTEOARTHROS NOS-L/LEG[ICD-9-CM] 719.46 JOINT PAIN-L/LEG[ICD-9-CM] V43.65 KNEE JOINT REPLACEMENT STATUS[ICD-9-CM] documented in this encounter Discharge Disposition Disposition Code Departure Means Destination Auto Discharge documented in this encounter Progress Notes * Tio Keating MD - 05/22/[address] Sadler: It was a pleasure to reassess Dominique in our orthopedic clinic today. As you know, this 58-year-old female underwent a right total knee replacement approximately 6 weeks ago. Today, she returns to the clinic because she was concerned about some right leg swelling. Yesterday she went to the emergency department due to her bronchitis. A leg DVT was also ruled out. Her inflammatory markers were slightly elevated with an ESR of 21 and a CRP of 1.6. Unfortunately, despite repeated recommendations, Dominique has still not started participating in physical therapy. She says that this is related to the fact that she has had some social issues at home. On exam, her incision is well healed with no sign of infection. She is neurovascularly intact. She has a small knee effusion. There is no erythema. Range of motion is 5 to 100. The knee is stable. She has no calf tenderness. Her x-rays today demonstrate components in good position with no hardware complications. Today, I reassured Dominique that I do not believe that the knee is infected. I stressed the importanceof physical therapy. Her symptoms will improve with time. She was pleased with our discussion and will follow up with me at the 4-month jenise. Sincerely, cc: Dr Nadine Sadler documented in this encounter Plan of Treatment Not on file documented as of this encounter Visit Diagnoses Diagnosis S/P total knee arthroplasty- Primary Knee joint replacement by other means documented in this encounter Care Teams Farmworker Brooder Farm Relationship Specialty Start Date End Date Nadine Sadler FNP PCP - General 01/04/14 documented as of this encounter
--- OUTSIDE RECORDS SUMMARY | 2023-12-08 20:46 | XMS_ITS | Encounter Summary ---
Author Organization [facility] Address [address] [place] [address] Care Team Providers Care Railroad Dining Car Stewardess Name Role Phone Unavailable Primary Care Provider Unavailabl e Encounter Details Date Type Department Care Team (Late st Contact Info) Description 02/25/2000 Results Only [facility] conversion [address] [place] [address] Scott Muñoz MD Social History Tobacco Use Types Packs/Day Years Used Date Smoking Tobacco: Never Assessed Sex and Gender Information Value Date Recorded Sex Assigned at Not on file Gender Identity Not on file Sexual Orientation Not on file documented as of this encounter Plan of Treatment Not on file documented as of this encounter Procedures Procedure Name Priority Date/Time Associated Diagnosis Comments CYTOPATHOLOGY Routine 02/25/2000 0:00 EST documented in this encounter Results * CYTOPATHOLOGY (02/25/2000 0:00 EST) Pathology Report: CYTOPATHOLOGY REPORT Reports generated via electronic interface contain original data; however they are lacking the format of the original report. Caution should be taken when reading/interpreti ng unformatted reports. Name: ? AASHISH PASTRANA ? Accession #: ? [id number] : ? 1955 (Age: 44) ??F ?Collect Date: ? 02/25/2000 Location: ? [facility] ? Receive Date: ? 02/27/2000 Provider: ?SCOTT MUÑOZ MD Copy to: ? Specimen/Source: ?ThinPrep Pap Test, Vagina Last Menstrual Period: ? Hormonal/Contracep tive Status: ? Yes Treatment History: ? Hysterectomy: 1990 ? SPECIMEN ADEQUACY ? Satisfactory for evaluation. GENERAL CATEGORIZATION ? Within Normal Limits ? Document reviewed and electronically signed by: ? Maxine Deshpande, CT(ASCP) ? Report Date: ??03/02/2000 09:01 End of Report [facility] 02/25/2000 02/27/2000 Scott Muñoz MD PATHOLOGY ORDERABLES [facility] [address] [place] [address] documented in this encounter Visit Diagnoses Not on filedocumented in this encounter
--- OUTSIDE RECORDS SUMMARY | 2023-12-08 20:46 | XMS_ITS | Encounter Summary ---
Author Organization [facility] Address [address] [place] [address] Care Team Providers Care Embroidery Worker Name Role Phone Nadine Sadler VANESA Primary Care Provider + Reason for Visit * Reason Onset Date Comments Procedure 05/29/2014 Encounter Details Date Type Department Care Team (Late st Contact Info) Description 05/29/2014 Orders Only [facility] Total Joint Program - [address] [place], [place] [id number] Leticia Gandhi, RN Social History Tobacco Use Types Packs/Day [...] Progress Notes * Leticia Gandhi, RN - 05/29/2014 1335 EDT Sent PT orders to [facility] per Pt and PT request. She is starting rehab there. Our protocol was also faxed Leticia Gandhi RN documented in this encounter Plan of Treatment Not on file documented as of this encounter Visit Diagnoses Not on filedocumented in this encounter Care Teams Embroidery Worker Relationship Specialty Start Date End Date Nadine Sadler FNP PCP - General 01/04/14 documented as of this encounter
--- OUTSIDE RECORDS SUMMARY | 2023-12-08 20:46 | XMS_ITS | Encounter Summary ---
[facility] Organization [facility] [place] [address] Care Team Providers Care Solution Sales Senior Executive Name Role Phone Summer Tamez MD Primary Care Provider [phone] Encounter Details Date Type Department Care Team (Late st Contact Info) Description 05/13/2012 11:59 PM EST Hospital Encounter [place] [id number] Terence Hurd MD [address] [place] [id number] Elevated brain natriuretic peptide (BNP) level Social History Tobacco Use Types Packs/Day Years Used Date Smoking Tobacco: Never Assessed Sex and Gender Information Value Date Recorded Sex Assigned at Not on file Gender Identity Not on file Sexual Orientation Not on file documented as of this encounter Plan of Treatment Not on file documented as of this encounter Procedures Procedure Name Priority Date/Time Associated Diagnosis Comments MOBILE ECHOCARDIOGRAM Routine 05/13/2012 4:20 PM EST Elevated brain natriuretic peptide (BNP) level documented in this encounter Results * Mobile Echo (05/13/2012 4:20 PM EST) EF 65 [employer] SYSTEM Anatomical Region Laterality Modality Other 05/13/2012 Narrative 05/13/2012 4:24 PM EST Procedure: ? Transthoracic Echocardiogram Patient: ? PASTRANASERENITY ZENDEJAS Sapna ?(Age): 1955(56) Med Rec#: ?[id number] ? Sex: ?F ? Site Loc: ?[facility] ?Ht / Wt: ??147.3(cm)/71.2( Pt. Loc: ? Echo Lab ? BSA: ?1.71 Study Date: ?05/13/2012 ? Pt. Type: Inpatient Tape: ? Referrin Referring: [facility] Referring: RO HURD Performin Sales Contractor: Diagnosis: ??Congestive heart failure (428.0) CPT Code(s): ??Echo Full (67005), ??Spectral Doppler (67079), ??Color Doppler (09090), Indication(s): ??LV ejection fraction Rhythm: HR ?BP ?121/68 ?? SUMMARY: 1. Left ventricular chamber size, wall thickness, global and segmental systolic function are within normal limits. Ejection fraction is estimated to be 65%. 2. Doppler assessment is consistent with normal left sided filling pressure. 3. Right ventricular chamber size, wall thickness, and systolic function are within normal limits. 4. There is no hemodynamically significant valve disease. 5. The estimated pulmonary artery systolic pressure is 35 mmHg. 6. See remainder of report for additional findings. FINDINGS: Left Ventricle ?Left ventricular chamber size, wall thickness, global and segmental systolic function are within normal limits. Ejection fraction is estimated to be 65%. ?There are no left ventricular segmental wall motion abnormalities. ?Doppler assessment is consistent with normal left sided filling pressure. Left Atrium ?The left atrium is normal in size. Right Ventricle ?Right ventricular chamber size, wall thickness, and systolic function are within normal limits. ?The estimated pulmonary artery systolic pressure is 35 mmHg. ?The estimated right atrial pressure is 5 mmHg. Right Atrium ?The right atrium is normal in size. Aortic Valve ?The aortic valve is tricuspid. ?The aortic valve leaflets are mildly thickened. ?There is no evidence of aortic valve stenosis. ?There is no evidence of aortic regurgitation. Mitral Valve ?The mitral valve leaflets are mildly thickened. ?There is no evidence of mitral stenosis. ?There is trace mitral regurgitation present. Tricuspid Valve ?The tricuspid valve appears normal in structure and function. ?There is mild (1+/4+) tricuspid regurgitation present. Pulmonic Valve ?The pulmonic valve appears normal in structure and function. Pericardium ?The pericardium appears normal and there is no evidence of a pericardial effusion. Aorta ?The aortic root is normal in size. ?The ascending aorta is normal in size. Pulmonary Artery ?The main pulmonary artery appears normal. Venous ?The inferior vena cava appears normal in size. ?There is a greater than 50% respiratory change in the inferior vena cava dimension. Misc ?Two-dimensional echo, spectral Doppler and color Doppler performed. Wall Motion: Segment Name ?Rest ? Base-Anteroseptal ?? Normal ? Base-Anterior ? Normal ? Base-Anterolateral ??Normal ? Base-Posterolateral Normal ? Base-Inferior ? Normal ? Base-Inferoseptal ?? Normal ? Mid-Anteroseptal ?Normal ? Mid-Anterior ?Normal ? Mid-Anterolateral ?? Normal ? Mid-Posterolateral ??Normal ? Mid-Inferior ?Normal ? Mid-Inferoseptal ?Normal ? [place]-Septal ? Normal ? [place]-Anterior ? Normal ? [place]-Lateral ?Normal ? [place]-Inferior ? Normal ? [place]-Tip ?Normal ? Chambers ?Value ?Units (Range) ? LV EF Est ? 65 ? % (55 to 80) ? IVSd 2D ? 0.9 ?cm ? LVIDd 2D ?4.6 ?cm ? PWd 2D ?0.9 ?cm ? LVIDs 2D ?2.8 ?cm ? LVFS 2D ? 39 ? % ? LA area ? 17.8 ? cm2 (<21) ? RA area ? 14.4 ? cm2 (<18) ? Ao root ? 3.2 ?cm (2.1 to 3.6) ? Asc Ao ?3.3 ?cm (2 to 3.5) ? Mitral Valve ?Value ?Units (Range) ? E peak ?1.08 ? m/sec ? E/A ratio ? 1 ?ratio ? MVDT ?201 ?msec ? E1 ?0.13 ? m/sec ? E/E1 ?8.3 ?ratio ? Tricuspid/Pulmonic Valves ?Value ?Units (Range) ? TR peak vick ? 2.7 ?m/sec ? RAP ? 5 ?mmHg ? RVSP/PASP ? 35 ? mmHg ? This report has been electronically signed by: Nayan Main MD ? 05/13/2012 16:23:52 Images reviewed and interpretation verified [facility] Cardiac Ultrasound Laboratory Procedure Note Nayan Main MD - 05/13/2012 Procedure: Transthoracic Echocardiogram Patient: ZEINA ZENDEJAS I (Age): 1955(56) Med Rec#: [id number] Sex: F Site Loc: [facility] Ht / Wt: 147.3(cm)/71.2( Pt. Loc: Echo Lab BSA: 1.71 Study Date: 05/13/2012 Pt. Type: Inpatient Tape: Referrin Referring: [facility] Referring: RO HURD Performin Sales Contractor: Diagnosis: Congestive heart failure (428.0) CPT Code(s): Echo Full (90128), Spectral Doppler (87250), Color Doppler (97587), Indication(s): LV ejection fraction Rhythm: HR BP 121/68 SUMMARY: 1. Left ventricular chamber size, wall thickness, global and segmental systolic function are within normal limits. Ejection fraction is estimated to be 65%. 2. Doppler assessment is consistent with normal left sided filling pressure. 3. Right ventricular chamber size, wall thickness, and systolic function are within normal limits. 4. There is no hemodynamically significant valve disease. 5. The estimated pulmonary artery systolic pressure is 35 mmHg. 6. See remainder of report for additional findings. FINDINGS: Left Ventricle Left ventricular chamber size, wall thickness, global and segmental systolic function are within normal limits. Ejection fraction is estimated to be 65%. There are no left ventricular segmental wall motion abnormalities. Doppler assessment is consistent with normal left sided filling pressure. Left Atrium The left atrium is normal in size. Right Ventricle Right ventricular chamber size, wall thickness, and systolic function are within normal limits. The estimated pulmonary artery systolic pressure is 35 mmHg. The estimated right atrial pressure is 5 mmHg. Right Atrium The right atrium is normal in size. Aortic Valve The aortic valve is tricuspid. The aortic valve leaflets are mildly thickened. There is no evidence of aortic valve stenosis. There is no evidence of aortic regurgitation. Mitral Valve The mitral valve leaflets are mildly thickened. There is no evidence of mitral stenosis. There is trace mitral regurgitation present. Tricuspid Valve The tricuspid valve appears normal in structure and function. There is mild (1+/4+) tricuspid regurgitation present. Pulmonic Valve The pulmonic valve appears normal in structure and function. Pericardium The pericardium appears normal and there is no evidence of a pericardial effusion. Aorta The aortic root is normal in size. The ascending aorta is normal in size. Pulmonary Artery The main pulmonary artery appears normal. Venous The inferior vena cava appears normal in size. There is a greater than 50% respiratory change in the inferior vena cava dimension. [facility] Two-dimensional echo, spectral Doppler and color Doppler performed. Wall Motion: Segment Name Rest Base-Anteroseptal Normal Base-Anterior Normal Base-Anterolateral Normal Base-Posterolateral Normal Base-Inferior Normal Base-Inferoseptal Normal Mid-Anteroseptal Normal Mid-Anterior Normal Mid-Anterolateral Normal Mid-Posterolateral Normal Mid-Inferior Normal Mid-Inferoseptal Normal [place]-Septal Normal [place]-Anterior Normal [place]-Lateral Normal [place]-Inferior Normal [place]-Tip Normal Chambers Value Units (Range) LV EF Est 65 % (55 to 80) IVSd 2D 0.9 cm LVIDd 2D 4.6 cm PWd 2D 0.9 cm LVIDs 2D 2.8 cm LVFS 2D 39 % LA area 17.8 cm2 (<21) RA area 14.4 cm2 (<18) Ao root 3.2 cm (2.1 to 3.6) Asc Ao 3.3 cm (2 to 3.5) Mitral Valve Value Units (Range) E peak 1.08 m/sec E/A ratio 1 ratio MVDT 201 msec E1 0.13 m/sec E/E1 8.3 ratio Tricuspid/Pulmonic Valves Value Units (Range) TR peak vick 2.7 m/sec RAP 5 mmHg RVSP/PASP 35 mmHg This report has been electronically signed by: Nayan Main MD 05/13/2012 16:23:52 Images reviewed and interpretation verified [facility] Cardiac Ultrasound Laboratory Terence Hurd MD ECHO ORDER CHRIST documented in this encounter Visit Diagnoses Diagnosis Elevated brain natriuretic peptide (BNP) level Other nonspecific findings on examination of blood documented in this encounter Care Teams Solution Sales Senior Executive Relationship Specialty Start Date End Date Summer Tamez MD EMERGENCY DEPT [address] [place] [address] PCP - General 02/04/10 01/17/20 documented as of this encounter
--- OUTSIDE RECORDS SUMMARY | 2023-12-08 20:46 | XMS_ITS | Encounter Summary ---
Author Organization [facility] Address [address] [place] [address] Care Team Providers Care Six Pack Loader Operator Name Role Phone Nadine Sadler VANESA Primary Care Provider + Reason for Visit * Reason Onset Date Comments Medications Refill 07/12/2014 Encounter Details Date Type Department Care Team (Late st Contact Info) Description 07/12/2014 Telephone [facility] Joint Program - [address] [place], [place] [phone] Leticia Gandhi, ESTEVAN Medications Refill Social History Tobacco Use Types Packs/Day Years [...] Yes 04/12/2014 documented as of this encounter Ordered Prescriptions Prescription Sig Dispensed Refills Start Date End Da te amoxicillin (AMOXIL) 500 mg capsule Take 4 capsules by mouth,one hour prior to all dental procedures 4 Cap 5 07/12/2014 documented in this encounter Miscellaneous Notes * Telephone Encounter - Leticia Gandhi RN - 07/12/2014 0910 EDT Pt called. States two front teeth have bad cavities and she needs to see a dentist. Demanding to know why she has to wait a year, and why isnt any of this information in our joint book. Called pt back. Instructed that on page 4 of the book highlighted by me, is the dental information. Reviewed thati told pt she needed to go to the dentist and deal with any dental issues prior to 30 days beofre her surgery. States her surgery was March 12 and its over 4 months. Reviewed chart and told pt hersurgery was on April 11 and that she was just over three months. Pt had told us that she had [facility] dentist when she booked surgery and that she did not have any issues. Pt states she now has a problem, and hadnt seen the dentist because they couldn't get her in before surgery, but didn't want todelay her surgery. She admits that she was aware she was suppose to see dentist before surgery, butdid not. . Explained again the issue with dental infections and her joint replacement. Instructed to go see dentist and see what needs to be done and time frame it needs to be done in. Given antibioti c script, sent to her pharmacy and explained how to take. Pt will have dentist call us with update.Instructed to follow dental recommendations and let us know. Leticia Gandhi RN documented in this encounter Plan of Treatment Not on file documented as of this encounter Visit Diagnoses Not on filedocumented in this encounter Care Teams Six Pack Loader Operator Relationship Specialty Start Date End Date Nadine Sadler FNP PCP - General 01/04/14 documented as of this encounter
--- OUTSIDE RECORDS SUMMARY | 2023-12-08 20:46 | XMS_ITS | Encounter Summary ---
Author Organization Formerly [facility] [place] [address] Care Team Providers Care Nuclear Cardiology Technologist Name Role Phone Jacy Sadler APRN Primary Care Provider [phone] Reason for Visit * Reason Comments Back Pain lower back pain Encounter Details Date Type Department Care Team (Late st Contact Info) Description 01/18/2020 1:00 PM EST Office Visit Pain and Spine Center at [facility] [place] [address] Malissa Girard MD [facility] [place] [address] Disorder of sacrum Social History Tobacco Use Types Packs/Day Years [...] - Inhaled Oxygen Concentration - - Weight 62.1 kg (137 lb) 01/17/2020 11:35 AM EST Height 149.9 cm (4' 11) 01/17/2020 11:35 AM EST Body Mass Index 27.67 01/17/2020 11:35 AM EST documented in this encounter Progress Notes * Malissa Girard MD - 01/18/2020 1:00 PM EST [facility] Initial Consultation Note DOS: 01/18/20 : 1955 Dominique Gates is a 64 y.o. year old female with a PMH including asthma, bipolar disorder, COPD, AKASH, hypertension, insomnia, FOWLER, PTSD who presents to the pain clinic today at the referral of Jacy Sadler, [address] [place] [address] for consultation regarding back pain. CC: back pain HPI: Dominique Gates reports chronic back pain that started about 10 to 15 years ago. She was able to tolerate this amount of pain until about 3-4 years ago when her back pain become more intense. She was told by her PCP Jacy Sadler that there is a disc that is squeezing your nerve and you need a new disc placed in. Dominique tells me that she was evaluated by a surgeon in [facility] and she was denied surgery because she has medicaid. Recently she was evaluated by her primary care physician and prescribed a course of vicodin and PT.Vicodin did not provide significant pain relief and PT worsened her back pain. She saw Dr Pitts at [facility] after MRI L spine was done. She was told there is no immediate neurosurgical intervention and recommended to see a pain specialist. She went to a PT in [facility] where it was supposed to loosen up her core and after one session of PT, her pain was tremendous and now she feels there are big muscle knots sticking out of her butt cheek on each side. Now she has 3 areas of pain - her back pain and both buttock pain. She has pain 24/7, if she is not taking her pain medication, then she can only stay in bed. She takes Oxycodone 10mg three to four times per day. This is prescribed by Jacy Sadler, her PCP. She feels that her entire body shut down mode when she turned 54. She underwent right knee replacement about 3 years ago and she is not the same. She now walks with a limp and has been walking witha cane. She is upset that she cannot take care of her who is a cancer survivor and she can no longer walk her dog without this amount of pain. She stated that the only thing that can help me is to have a new disc placed into my back but nobody wants to help me and tells me that there is nothing wrong with my back, which is completely wrong. At this point, the only solution is probably just a miracle from God. She has been on oxycodone for 3 years and she was slowly up titrated to current dose of Oxycodone 10mg q4-6h prn. Pain Description: Duration - constant Location - lower back, bilateral legs, left more than right Quality - sharp Weakness - I am in pain so I do not exert myself. Of course, walking hurts and my legs feel weak Numbness/Tingling - bottom of both feet are burning Pain score: 7/10 today, 9/10 at worst, 6/10 at best (resting and sitting in her recliner), 6-8/10 on average (all in past week) Alleviating factors: sitting in her recliner, oxycodone 10mg TID prn Aggravating factors: standing, walking Prior Treatments/Medications (Per prior notes and patient): Medications : Topicals - NSAIDs - Acetaminophen - Antidepressants - Antieptileptics - gabapentin (hives), topiramate (hives) Muscle Relaxants - Opioids - vicodin Steroids - PT: [facility] which caused her to have a severe flare up Modalities: Surgery: none Injections: none Chiropractic: none Acupuncture: none, does not believe in that because she is a [employer] Mental Health: none ROS: Constitutional: she has gained 5 lbs because she has been eating more sugar junk because she is upset with her lower back pain, +fever about 4 weeks ago which self-resolved, recorded temperature was 103. She called ambulance and was told to stay home, did not get tested for covid, denies active chills, or night sweats. HENT: No recent hearing changes. No difficulty swallowing. Eyes: No recent vision changes, baseline blurry vision. Respiratory: No cough, baseline shortness of breath from COPD. Cardiovascular: went to ED for chest pain last month and they found nothing wrong, denies historyof syncope. GI: No diarrhea, nausea, vomiting, +++constipation from oxycodone, she takes magnesium and plum juice. : No dysuria, hesitancy, or urgency. No incontinence. Musculoskeletal: No muscle weakness. Skin: No rashes or lesions. Neurologic: bilateral feet burning. Sometimes when she is tired when she has been standing on her feet for 3-4 hours, she has to hold onto her walker or cane, otherwise she feels like she will fall Psychiatric: Mood depressed because she feels isolated, no more pentecostalism going, [place], no friends, she is supported by her but socially still feels isolated. No SI/HI. Sleep is terrible, looks at the bags under my eyes, reports she has been sleep deprived for 30 years. Heme/Lymph/Imm: No easy bleeding or bruising. PMH/PSH: Patient Active Problem List Diagnosis Code ??? Lumbar spondylosis M47.816 ??? Bipolar disorder F31.9 ??? COPD (chronic obstructive pulmonary disease) J44.9 Past Medical History: Diagnosis Date ??? Asthma ??? Bipolar disorder ??? COPD (chronic obstructive pulmonary disease) ??? AKASH (generalized anxiety disorder) ??? Hypertension ??? Insomnia ??? FOWLER (nonalcoholic steatohepatitis) ??? PTSD (post-traumatic stress disorder) Past Surgical History: Procedure Laterality Date ??? CARPAL TUNNEL RELEASE Right ??? HYSTERECTOMY ??? OVARY REMOVAL ??? TOTAL KNEE ARTHROPLASTY Right FAMILY HISTORY: History reviewed. No pertinent family history. SOCIAL HISTORY: Tobacco: never smoker Alcohol: she started out to be a social drinker and then she hung out with wrong friends and started to be drinking all the time, she never needed rehab but she quit drinking about 7 years ago Recreational drug use: denies Work: disabled from back pain, she worked as a book keeper, cashier assistant, etc Home: lives with Opioid Risk Tool Female Male 1. Family history of Substance Abuse Alcohol [x] 1 [] 3 Illegal Drugs [] 2 [] 3 Prescription Drugs [] 4 [] 4 2. Personal History of Substance Abuse Alcohol [] 3 [] 3 Illegal Drugs [] 4 [] 4 Prescription Drugs [] 5 [] 5 3. Age (jenise box if 16-45) [] 1 [] 1 4. History of Preadolescent Sexual Abuse [] 3 [] 0 5. Psychological Disease Attention Deficit Disorder, Obsessive Compulsive D/o, Bipolar, Schizophrenia [x] 2 [] 2 Depression [x] 1 [] 1 TOTAL: 4 Comments about ORT in relation to this patient: Patient has bipolar disorder, anxiety/depression, previously had EtOH dependence but was able to quit about 5- 6 years ago. Opioid Risk Category: moderate risk 4-7 FUNCTIONAL STATUS: Independent in all ADLs. MEDICATIONS: Current Outpatient Medications: ??? oxycodone HCl,terephth/aspirin (OXYCODONE [id number] ORAL), Take 10 mg by mouth 4 times daily as needed., Disp: , Rfl: ??? acetaminophen (Tylenol Extra Strength) 500 mg Tablet, Take 2 tablets every 6 hours by oral route as needed., Disp: , Rfl: ??? albuteroL (ProAir HFA) 90 mcg/actuation HFA Aerosol Inhaler, Inhale 2 puffs every 4 hours by inhalation route for 30 days., Disp: , Rfl: ??? amoxicillin (Amoxil) 500 mg Capsule, Take 4 capsules by mouth,one hour prior to all dental procedures, Disp: , Rfl: ??? benzonatate (Tessalon Perles) 100 mg Capsule, as needed., Disp: , Rfl: ??? cetirizine (ZyrTEC) 10 mg Tablet, Take 1 tablet every day by oral route for 90 days., Disp: , Rfl: ??? clonazePAM (KlonoPIN) 1 mg Tablet, Take 1 tablet every 6-8 hours by oral route as needed for 30days., Disp: , Rfl: ??? fluticasone propion-salmeteroL (ADVAIR) 500-50 mcg/dose Disk with Device, Inhale 1 puff into the lungs Twice daily., Disp: , Rfl: ??? lamoTRIgine (LaMICtal) 25 mg Tablet, TAKE THREE TABLETS BY MOUTH TWICE A DAY, Disp: , Rfl: ??? loratadine (Claritin) 10 mg Tablet, TAKE ONE TABLET BY MOUTH EVERY DAY, Disp: , Rfl: ??? naloxone (Narcan) 4 mg/actuation [place], Non-Aerosol, Take 1 spray as needed by nasal route., Disp: , Rfl: ??? oxyCODONE (ROXICODONE) 10 mg Tablet, Take 1 tablet every 4-6 hours by oral route as needed for 28 days., Disp: , Rfl: ??? Imitrex STATdose Pen 6 mg/0.5 mL Pen Injector, INJECT SUBCUTANEOUSLY NEEDED FOR HEADACHE MAYREPEAT DOSE IN 2 HOURS NEEDED MAX OF 2 DOSES IN 24 HOURS, Disp: , Rfl: ??? zolpidem (AMBIEN) 10 mg Tablet, TAKE ONE TABLET BY MOUTH AT BEDTIME NEEDED, Disp: , Rfl: ??? multivitamin (THERAGRAN) Tablet, Take 1 tablet by mouth daily., Disp: , Rfl: ??? ascorbic acid, Vitamin C, (Vitamin C) 500 mg Tablet, Take 500 mg by mouth daily., Disp: , Rfl: PDMP report checked and no inconsistencies are noted. ALLERGIES: Allergies Allergen Reactions ??? Gabapentin Burning in hands and feet ??? Topiramate Other (See Comments) Burning in hands and feet ??? Aspirin Other (See Comments) Dizziness and elevated BP per pt PHYSICAL EXAM: General: Patient is seated comfortably in NAD, well-groomed. HEENT: Head atraumatic, EOMI. Respiratory: Breathing comfortably on RA. Cardiovascular: 2+ peripheral pulses, no swelling Abdominal: non-distended, non-tender to palpation Skin: No appreciable rashes or skin breakdown Psych: Appropriate affect, A&Ox3 , answers questions appropriately Musculoskeletal: Inspection - No gross appendicular or axial deformities Palpation - Diffuse across lower back ROM - Special tests - SLR b/l - negative bilaterally Facet joint loading - lumbar extension did not reproduce her back pain NIKITA's maneuver - positive bilaterally Neurologic: shed boss - grossly intact Motor - 5/5 in all planes of motion in all four extremities. Sensation - Intact to light touch throughout all four extremities Gait/Station: Normal gait. No loss of balance noted. She has a cautious gait and reaches for cane. TESTS/IMAGING: MRI L spine: reviewed ASSESSMENT: Lumbar spondylosis Sacroiliac dysfunction Patient is a 64 yo female with bipolar, anxiety/depression, COPD, right knee replacement, chronic back pain with some radiation down both legs. She has multi-level degenerative changes on MRI L spine. Facet loading did not reproduce patient's symptoms. NIKITA's maneuver was positive and bilateral tenderness over PSIS which is consistent with sacroiliac mediated dysfunction. Patient is not willing to participate in PT in [place], [place] because the therapist caused me to have a bad bruise when she tried to loosen me up. I had a lengthy discussion with patient that there will not be a single solution for her current symptoms. She re-iterated that she needs a new disc but no one is willing to operate on her. I emphasized with Dominique that she is deconditioned and she needs to actively engage with PT. She then reported that she is looking for an injection that can be repeated every 3-4 months so she can walk straighter and freer. I told Dominique that this is not how interventional pain procedures work - the procedure can alleviate her symptoms but she needs to participate with PT, establish good home exercise program and she needs to wean down her opioid. She is in agreement. We also discussed and established the following three functional goals: 1. She wants to be able to walk, 2-3 miles 2. She wants to be able to iron clothes while standing up and not having too much pain 3. She wants to be able to walk without a cane There is a component of pain catastrophizing with patient repetitively stating what do you want meto do? Move around with pain? I know the solution is to get a surgery but everyone is denying me that chance because of the medicaid insurance I carry around. It is not fair. PLAN: Medication: - patient expressed willingness to wean off oxycodone if interventional pain procedure is able to reduce her back pain Diagnostic images: - none indicated - consider NCS/EMG if her bilateral feet burning persists but patient rpeorted that she had been evaluated by a neurologist in [facility] and she has been tested Interventional procedures: - schedule bilateral SI joint injection Referral: - patient should start Chip based PT and establish home exercise program, no referral was placed because pt declined - she is not ready to start PT because the amount of pain she is in - pain psychology referral was offered to patient but she declined because she strongly feels there is something going on but no one has been able to diagnose her. She does not believe this is psycho-somatic Follow up: - 4 weeks after SI joint injection Thank you for allowing us the opportunity to participate in Ms Gates's care. Malissa Girard MD [employer] [facility] [place] [address] CC: Jacy Sadler APRN [address] [place] [address] documented in this encounter Plan of Treatment Not on file documented as of this encounter Visit Diagnoses Diagnosis Disorder of sacrum Disorders of sacrum documented in this encounter Care Teams Nuclear Cardiology Technologist Relationship Specialty Start Date End Date Jacy Sadler APRN [address] [place] [address] PCP - General Family Medicine 01/18/20 07/30/21 documented as of this encounter
--- OUTSIDE RECORDS SUMMARY | 2023-12-08 20:46 | XMS_ITS | Encounter Summary ---
Author Organization [facility] Address [address] [place] [address] Care Team Providers Care Water Quality Control Engineer Name Role Phone Unavailable Primary Care Provider Unavailabl e Encounter Details Date Type Department Care Team (Late st Contact Info) Description 06/10/2005 Results Only [facility] [address] [place] [address] Colleen De La Fuente MD [address] [place], [place] [id number] Social History Tobacco Use Types Packs/Day Years Used Date Smoking Tobacco: Never Assessed Sex and Gender Information Value Date Recorded Sex Assigned at Not on file Gender Identity Not on file Sexual Orientation Not on file documented as of this encounter Plan of Treatment Not on file documented as of this encounter Procedures Procedure Name Priority Date/Time Associated Diagnosis Comments CYTOPATHOLOGY Routine 06/10/2005 0:00 EST documented in this encounter Results * CYTOPATHOLOGY (06/10/2005 0:00 EST) Pathology Report: CYTOPATHOLOGY REPORT Reports generated via electronic interface contain original data; however they are lacking the format of the original report. Caution should be taken when reading/interpreti ng unformatted reports. Name: ? AASHISH PASTRANA ? Accession #: ? [id number] : ? 1955 (Age: 49) ??F ?Collect Date: ? 06/10/2005 Location: ? [facility] ? Receive Date: ? 06/12/2005 Provider: ?COLLEEN DE LA FUENTE MD Copy to: ? Specimen/Source: ?ThinPrep Pap Test, Vagina, processed on [facility] ThinPrep Imaging System, with manual evaluation Last Menstrual Period: ? Menstrual/Pregnanc y Status: ? Menopausal Treatment History: ? Hysterectomy Other: ? HPVA - HPV testing requested if ASC-US on the current ThinPrep Pap test. ? SPECIMEN ADEQUACY ? Satisfactory for Evaluation - assessment of transformation zone component not applicable ( e.g. atrophy, vaginal sample, hysterectomy) GENERAL CATEGORIZATION ? Negative for Intraepithelial Lesion or Malignancy ? Document reviewed and electronically signed by: ? Sona Cosme, CARLI(ASCP) ? Report Date: ??06/16/2005 11:09 End of Report HADLEY PENA 06/10/2005 06/12/2005 Colleen De La Fuente MD PATHOLOGY ORDERABLES Performing Organization Address City/State/[facility] Co de Phone Number HADLEY PENA [address] [place] [address] documented in this encounter Visit Diagnoses Not on filedocumented in this encounter
--- OUTSIDE RECORDS SUMMARY | 2023-12-08 20:46 | XMS_ITS | Encounter Summary ---
Author Organization [facility] Address [address] [place] [address] Care Team Providers Care Science Tutor Name Role Phone Nadine Sadler VANESA Primary Care Provider + Encounter Details Date Type Department Care Team (Late st Contact Info) Description 11/06/2022 Lab Requisition [facility] Pathology & Laboratory Medicine - [facility] [address] [place] [address] Outr Resulting Lab, Provider Social History Tobacco [...] Procedure Name Priority Date/Time Associated Diagnosis Comments HOLD SST Today 11/06/2022 14:20 EDT HOLD SST Today 11/06/2022 14:20 EDT CCP ANTIBODIES Today 11/06/2022 14:20 EDT RHEUMATOID FACTOR Today 11/06/2022 14: 20 EDT ANTI NUCLEAR AB (JONNA), IFA Today 11/06/2022 14:20 EDT documented in this encounter Results * HOLD SST (11/06/2022 14:20 EDT) Hold Hold 11/06/2022 22:46 EDT [facility] Blood VENOUS BLOOD / Unknown 11/06/2022 14:20 EDT 11/06/2022 21:44 EDT Provider Outr Resulting Lab LAB INFO SER VICE AND SUPPORT & PHONE RESULT Performing Organization Address [facility]/ZIP Co de Phone Number [facility] [address] [place] [phone] * HOLD SST (11/06/2022 14:20 EDT) Hold Hold 11/06/2022 22:46 EDT [facility] Blood VENOUS BLOOD / Unknown 11/06/2022 14:20 EDT 11/06/2022 21:44 EDT Provider Outr Resulting Lab LAB INFO SER VICE AND SUPPORT & PHONE RESULT Performing Organization Address [facility]/ZIP Co de Phone Number [facility] [address] [place] [address] * RHEUMATOID FACTOR (11/06/2022 14:20 EDT) Rheumatoid Factor <8.6 <12.0 IU/mL 11/06/2022 22:07 EDT [facility] Blood VENOUS BLOOD / Unknown 11/06/2022 14:20 EDT 11/06/2022 21:27 EDT Provider Outr Resulting Lab CHEMISTRY & BLOOD GAS ORDERABLES Performing Organization Address [facility] Co de Phone Number [facility] [address] [place] [address] * (ABNORMAL) ANTI NUCLEAR AB (JONNA), IFA (11/06/2022 14:20 EDT) JONNA Interpretation Positive(A) Negative 11/09/2022 14:22 EDT [facility] Comment: For titers greater than or equal to 1:160 (except the centromere and nucleolar patterns) it is recommended that specific follow-up autoantibody testing ??(such as for dsDNA and Extractable Nuclear Antigens) be performed on all diffuse and/or speckled patterns NOTE: For add-on testing dsDNA is stable for 7 days refrigerated while Extractable Nuclear Antigens are only stable for 48 hours refrigerated. Cytoplasmic Pattern Noted, Reticular/Mitochondrion-like JONNA Titer and Pattern 1 1:320 Homogeneous 11/09/2022 14:22 EDT [facility] Blood VENOUS BLOOD / Unknown 11/06/2022 14:20 EDT 11/06/2022 21:27 EDT Narrative [facility] - 11/09/2022 14:22 EDT Results were obtained with the INOVA NOVA Lite HEp-2 JONNA Kit by indirect immunofluorescence. Provider Outr Resulting Lab IMMUNOLOGY A ND SEROLOGY ORDERABLES Performing Organization Address City/[facility] Co de Phone Number [facility] [address] [place] [address] * CCP ANTIBODIES (11/06/2022 14:20 EDT) CCP Antibodies <2.5 <5.0 U/mL 11/09/2022 8:25 EDT [facility] Blood VENOUS BLOOD / Unknown 11/06/2022 14:20 EDT 11/06/2022 21:27 EDT Provider Outr Resulting Lab IMMUNOLOGY A ND SEROLOGY ORDERABLES [facility] [address] [place] [address] documented in this encounter Visit Diagnoses Not on filedocumented in this encounter Care Teams Science Tutor Relationship Specialty Start Date End Date Nadine Sadler FNP PCP - General 01/04/14 documented as of this encounter
--- OUTSIDE RECORDS SUMMARY | 2023-12-08 20:46 | XMS_ITS ---
Author Organization Unknown Address [address] [place] [phone] Phone Care Team Providers Care Community Liaison Officer Name Role Phone LORENE FLOREZ MD Attending Unavailable LONNIE DAVIS NP Primary Unavailable Social History Type Status Start Date End Date Code Code Syst em Smoking History Never smoker (Never Smoked) [id number] SNOMED CT Sex Female Hospital Discharge Instructions Should you have any questions prior to discharge, please contact a member of your healthcare team. If you have left the hospital and have any questions, please contact your primary care physician. Reason For Referral No Data Found Procedures Procedure Name Date Status Code Code Syste m Arthrocentesis Aspir&/Inj Ma lilly Jt/Bursa w/o US 10/24/2020 completed CPT Allergies and Adverse Reactions Allergy Substance Reaction Severity Start Date Concern Status Co de Code System ASPIRIN Moderate Active Plan of Treatment No Data Found Encounters Encounter Diagnosis Start Date Code Code Sys tem Unilateral primary osteoarthritis, left knee SNOMED-CT Personal Care Team Section Performer Name Performer Role Active Date Inactive Da te
--- OUTSIDE RECORDS SUMMARY | 2023-12-08 20:46 | XMS_ITS | Encounter Summary ---
Author Organization [facility] Address [address] [place] [address] Care Team Providers Care Handle Turner Name Role Phone Nadine Sadler VANESA Primary Care Provider + Reason for Visit * Reason Comments Post-OP Follow Up Right TKA DOS Encounter Details Date Type Department Care Team (Latest Contact Info) Description 05/08/2014 10:45 EST Post-op Visit [facility] Total Joint Program - [address] [place] [address] Tio Keating MD MSc [facility] [address] [place] [phone] S/P total knee arthroplasty (Primary Dx) [...] encounter Discharge Diagnoses Diagnosis 715.96 OSTEOARTHROS NOS-L/LEG[ICD-9-CM] V43.65 KNEE JOINT REPLACEMENT STATUS[ICD-9-CM] V71.89 OBSERVATION FOR OTHER SPECIFIED SUSPECTED CONDITIONS[ICD-9-CM] documented in this encounter Discharge Disposition Disposition Code Departure Means Destination Auto Discharge documented in this encounter Progress Notes * Tio Keating MD - 05/08/2014 1225 EST Nadine Sadler Dear Nadine, It was a pleasure to reassess Dominique in our orthopedic clinic today. As you know, approximately a month ago, she underwent a right total knee replacement. Today, she comes in with no new complaints. She continues to have some generalized pain and is quite slow with physical therapy. Her pain is about 6/10. On exam, her incision is well healed with no sign of infection. She is neurovascularly intact. Her range of motion is 5 to 90. The knee is stable. There is minimal swelling. Her x-rays from today demonstrate components in good position with no hardware complications. At this point, I encouraged Dominique to continue doing her physical therapy. I stressed how important it is. I explained that her symptoms will subside with time and she will continue to improve. She seemed pleased with the discussion. She will follow up with me in 3 months with new x-rays. Sincerely, documented in this encounter Plan of Treatment Not on file documented as of this encounter Visit Diagnoses Diagnosis S/P total knee arthroplasty- Primary Knee joint replacement by other means documented in this encounter Care Teams Handle Turner Relationship Specialty Start Date End Date Nadine Sadler FNP PCP - General 01/04/14 documented as of this encounter
--- OUTSIDE RECORDS SUMMARY | 2023-12-08 20:46 | XMS_ITS | Encounter Summary ---
Author Organization [facility] [place] [address] [place] [address] Care Team Providers Care Legal Receptionist Name Role Phone Jacy Sadler APRN Primary Care Provider [phone]- [phone] Encounter Details Date Type Department Care Team (Late st Contact Info) Description 02/07/2020 11:45 AM EST Ancillary Procedure Pain Management [facility] [place] [address] Malissa Girard MD [facility] [place] [address] Pain Social History Tobacco Use Types Packs/Day Years Used Date Smoking Tobacco: Never Smokeless Tobacco: Never Sex and Gender Information Value Date Recorded Sex Assigned at Not on file Gender Identity Not on file Sexual Orientation Not on file documented as of this encounter Plan of Treatment Pending Results Name Type Priority Associated Diagnoses Date /Time Film Library- Storage Only pain Clinic [facility] Storage Only Routine Pain 02/07/2020 4:59 PM EST documented as of this encounter Visit Diagnoses Diagnosis Pain Generalized pain documented in this encounter Care Teams Legal Receptionist Relationship Specialty Start Date End Date Jacy Sadler APRN [address] [place] [address] PCP - General Family Medicine 01/18/20 07/30/21 documented as of this encounter
--- OUTSIDE RECORDS SUMMARY | 2023-12-08 20:46 | XMS_ITS | Encounter Summary ---
Author Organization [facility] Address [address] [place] [address] Care Team Providers Care Carpenter Repairer Name Role Phone Nadine Sadler [employer] Primary Care Provider + Reason for Referral * Radiology Services (Routine) - Closed Specialty Diagnoses / Procedures Referred By Vidal beard Referred To Contact Diagnoses Knee pain Procedures KNEE 1 OR 2 VIEWS Tio Keating MD MSc [address] [address] Referral ID Status Reason Start Date Expiration Date Visits Re quested Visits Authorized [id number] Closed 05/22/2014 1 1 * Radiology Services (Routine) - Closed Specialty Diagnoses / Procedures Referred By Vidal beard Referred To Contact Diagnoses Knee pain Procedures KNEE 1 OR 2 VIEWS Tio Keating MD M[facility] [address] [address] Referral ID Status Reason Start Date Expiration Date Visits Re quested Visits Authorized [id number] Closed 05/22/2014 1 1 Encounter Details Date Type Department Care Team (Late st Contact Info) Description 05/22/2014 Orders Only [facility] Total Joint Program - [place] [address] [place] [address] Margarito Keating MD [facility] [place] [id number] Knee pain (Primary Dx) Social History Tobacco [...] Comments KNEE 1 OR 2 VIEWS Routine 05/22/2014 11: 17 EDT Knee pain KNEE 1 OR 2 VIEWS Routine 05/22/2014 11: 16 EDT Knee pain documented in this encounter Results * KNEE 1 OR 2 VIEWS (05/22/2014 11:17 EDT) Anatomical Region Laterality Modality Other 05/22/2014 11:1 7 EDT 05/22/2014 11:58 EDT Narrative 05/22/2014 11:58 EDT KNEE 1 OR 2 VIEWS, KNEE 1 OR 2 VIEWS ??05/22/2014 11:16 AM Signs and Symptoms/Comments: ?? 719.46-Pain in joint, lower aom-IKW-5-CM; right total knee replacement due to osteoarthritis . 2 views of the right knee and single view of the left knee were obtained Compare examination April 2014 Right knee findings: The total knee arthroplasty remains well seated. ?? Left knee findings: The mild degenerative changes in the left knee are stable. Procedure Note Jaylyn Titus MD - 05/22/2014 KNEE 1 OR 2 VIEWS, KNEE 1 OR 2 VIEWS 05/22/2014 11:16 AM Signs and Symptoms/Comments: 719.46-Pain in joint, lower lkr-TYY-6-CM; right total knee replacement due to osteoarthritis . 2 views of the right knee and single view of the left knee were obtained Compare examination April 2014 Right knee findings: The total knee arthroplasty remains well seated. Left knee findings: The mild degenerative changes in the left knee are stable. Tio Keating MD, MSc [facility] NOSTIC IMAGING ORDERABLES * KNEE 1 OR 2 VIEWS (05/22/2014 11:16 EDT) Anatomical Region Laterality Modality Other 05/22/2014 11:1 6 EDT 05/22/2014 11:58 EDT Narrative 05/22/2014 11:58 EDT KNEE 1 OR 2 VIEWS, KNEE 1 OR 2 VIEWS ??05/22/2014 11:16 AM Signs and Symptoms/Comments: ?? 719.46-Pain in joint, lower fbm-CWT-7-CM; right total knee replacement due to osteoarthritis . 2 views of the right knee and single view of the left knee were obtained Compare examination April 2014 Right knee findings: The total knee arthroplasty remains well seated. ?? Left knee findings: The mild degenerative changes in the left knee are stable. Procedure Note Jaylyn Titus MD - 05/22/2014 KNEE 1 OR 2 VIEWS, KNEE 1 OR 2 VIEWS 05/22/2014 11:16 AM Signs and Symptoms/Comments: 719.46-Pain in joint, lower oxi-AGL-7-CM; right total knee replacement due to osteoarthritis . 2 views of the right knee and single view of the left knee were obtained Compare examination April 2014 Right knee findings: The total knee arthroplasty remains well seated. Left knee findings: The mild degenerative changes in the left knee are stable. Tio Keating MD, MSc [facility] NOSTIC IMAGING ORDERABLES documented in this encounter Visit Diagnoses Diagnosis Knee pain- Primary Pain in joint, lower leg documented in this encounter Care Teams Carpenter Repairer Relationship Specialty Start Date End Date Nadine Sadler FNP PCP - General 01/04/14 documented as of this encounter
[2023-12-08 20:58] LABS: Source Nasopharynx
== END 2023-12-08 20:42 | disposition home or self-care (01) ==
LOC: LBN 20:41
PROVIDERS: PCP Family Medicine; Visit Provider Physician Assistant Surgical
DX: R50.9 Fever, unspecified (principal); K21.9 Gastro-esophageal reflux disease without esophagitis; K44.9 Diaphragmatic hernia without obstruction or gangrene; R05.3 Chronic cough; J45.909 Unspecified asthma, uncomplicated; G47.33 Obstructive sleep apnea (adult) (pediatric)
CPT/HCPCS: 87637